=== PATIENT | female | born 1980 | race Caucasian/White ===

== ENCOUNTER 2021-09-02 09:41 | Outpatient (CLI) | payer OTHER, SELFPAY ==
--- NOTE | ~2021-09-02 | NM_ITS ---
EXAMINATION: NM hepatobiliary wo pharm DATE: 09/02/2021 12:17 INDICATION: Abdominal pain. COMPARISON: None. TECHNIQUE: 4 mCi Tc-99m mebrofenin (Choletec) was administered intravenously. Scintigraphic images o f the abdomen were obtained for one hour. Then, the patient drank 8 oz Ensure, and imaging was contin ued for 60 minutes. FINDINGS: There is normal clearance of radiotracer from the blood pool. There is homogeneous tracer u ptake by the liver. Activity progresses to the bowel and gallbladder. Gallbladder ejection fraction (GBEF) was 50%. Note that with this technique, normal GBEF >= 33%. IMPRESSION: 1. Normal hepatobiliary scintigraphy. Reviewed, dictated and finalized at location A.
== END 2021-09-02 09:42 | disposition home or self-care (01) ==
LOC: ANHIMG 09:45
PROVIDERS: PCP Internal Medicine; Visit Provider Internal Medicine
DX: R10.11 Right upper quadrant pain (principal)
CPT/HCPCS: 78226; A9537

== ENCOUNTER 2021-12-31 06:32 | Outpatient (CLI) | payer OTHER, SELFPAY ==
--- NOTE | ~2021-12-31 | MR_ITS ---
EXAMINATION: MR lumbar spine wo con DATE: 12/31/2021 07:31 INDICATION: Chronic low back pain. TECHNIQUE: Magnetic resonance imaging (MRI) of the lumbar spine was performed without intravenous con trast. Sequences included sagittal T2-weighted FSE, sagittal T2-weighted FS FSE, sagittal T1-weighted FSE, and axial T2-weighted FSE. COMPARISON: None FINDINGS: Bone alignment is normal. Vertebral body heights are normal. Intervertebral disc heights ar e normal. The distal spinal cord signal intensity is normal. The conus medullaris is at L1. The follo wing disc levels are specifically discussed: L1-L2: The disc does not extend beyond the endplate margin. There is no facet joint osteoarthritis. T here is no neural foraminal stenosis. There is no central canal stenosis. L2-L3: The disc does not extend beyond the endplate margin. There is mild left facet joint osteoarthr itis. There is no neural foraminal stenosis. There is no central canal stenosis. L3-L4: The disc does not extend beyond the endplate margin. There is no facet joint osteoarthritis. T here is no neural foraminal stenosis. There is no central canal stenosis. L4-L5: The disc does not extend beyond the endplate margin. There is no facet joint osteoarthritis. T here is no neural foraminal stenosis. There is no central canal stenosis. L5-S1: The disc is bulging with superimposed left central extrusion. There is mild bilateral facet raymundo int osteoarthritis. There is no neural foraminal stenosis. There is mild central canal stenosis. IMPRESSION: 1. Mild lumbar spondylosis. Reviewed, dictated and finalized at location A. IMPRESSION: 1. Mild lumbar spondylosis.
== END 2021-12-31 06:33 | disposition home or self-care (01) ==
PROVIDERS: PCP Internal Medicine; Visit Provider Internal Medicine
DX: M54.50 Low back pain, unspecified (principal); M47.816 Spondylosis without myelopathy or radiculopathy, lumbar region
CPT/HCPCS: 72148

== ENCOUNTER 2022-02-18 01:05 | Day surgery (SDC) | payer OTHER, SELFPAY ==
[2022-02-03 15:07] VITALS: BMI 56.7
--- NOTE | 2022-02-03 15:22 | PC.NURSE ---
Report to the Outpatient Waiting Room, entrance under the green pavilion located off [facility], at time 0900 on date 02/18/22. Planned Procedure Time: 1100. Time changes happen often and if your time is changed the preop area will call you the afternoon before. - You and your visitor will be asked to self-screen and do not enter if you have any COVID symptoms. - Only one visitor is requested with a max of two and NO children visitors are allowed at this time. - The patient visitor may be requested to leave or wait in car when not with patient due to distancing restrictions. - A mask is optional within the hospital. Patients may have clear liquids (water, carbonated beverages, clear teas, apple juice) until 3 hours prior to surgery with a maximum of 20 ounces. 0800 - No food from midnight until time of surgery - Infants may have breast milk until 4 hours before surgery, infant formula 6 hours prior to surgery. - Children will be allowed to drink immediately following surgery. If applicable, please bring a bottle or sippy cup to assist with drinking. Juice, water, soda, and popsicles are readily available. For infants on formula, please bring formula the day of surgery. Pacifiers are allowed. Take the following medications with a SIP of water the morning of surgery: n/a (patient takes all medications at night) Medications to discontinue per physician n/a Date to take last dose n/a Please no make-up, nail lao, hairspray, perfume, deodorant, or body powder the day of surgery. No jewelry (including any body piercings) or valuables the day of surgery, leave them at home. Please take a shower or bath the night before, or the morning of, surgery with an antibacterial soap. Wear comfortable, loose fitting clothing. Children are encouraged to wear pajamas. - Jewelry must be removed prior to entering the operating room. Rings and piercings that are not removed may be cut off. - The hospital will not accept responsibility for valuables. - Please leave all valuables, including medications, at home the day of surgery. If you are going home after surgery, a licensed starting gate driver must drive you home. - NO public transportation without another adult if you receive anesthesia. - We recommend that an adult stay with you for 24 hours following discharge. - We also recommend that you do not drive, make important decision, drink alcoholic beverages, or take any drugs that were not prescribed by your health care provider for at least 24 hours after your discharge time. For Pediatric surgeries, we recommend two adults accompany the child home. Follow any additional instructions given to you from your surgeon. If you or anyone in your household have experienced Covid symptoms in the past week, please notify your surgeon or the nurse liaison at the phone number below for possible testing. Telephone instructions given to Mandi Hamilton and asked if any additional questions and then verbalized understanding. Patient advised to call surgeon office or pre surgery nurse liaison [phone] if any additional questions.
[2022-02-18] VITALS (8 sets, daily range): BP systolic 108–155; BP diastolic 52–94; PULSE 62–87; RESP 16–26; TEMP 36–36.9; O2SAT 94–100
--- NOTE | 2022-02-18 07:47 | WPDHPUPDATE1 ---
History and Physical Update Update Date/Time: proceed with hscope/D&C/polypectomy. History and Physical has been reviewed, including an updated exam of the patient. There are NO changes in the patient's condition. Risks, benefits, and alternatives have been discussed and questions answered. Patient agrees to proceed with procedure.
[2022-02-18] MEDS: ACETAMINOPHEN 500 MG TABLET 1000 MG PO (08:20)
[2022-02-18] MEDS: LACTATED RINGERS 1,000 ML 30 ML IV CONT (08:30)
--- NOTE | 2022-02-18 09:54 | WPDANESEPPF ---
Anes - Initial Pre Proc Eval Procedure: Operation Date: 02/18/22 10:00 Proposed Procedures p Hysteroscopy Dilation and Curettage with Polypectomy - Tomasz Denney MD Date/Time: 02/18/22 09:54 Surgeon: Tomasz Denney MD Pre Op Diagnosis: cervical polyp, Menometrorrhagia Patient Data Age: 41 Gender: F Height: 1.6 m Weight: 151.1 kg Last Vital Signs Temp 36.0 C L 02/18/22 08:30 Pulse 87 02/18/22 08:30 Resp 16 02/18/22 08:30 BP 146/86 H 02/18/22 08:30 Pulse Ox 96 02/18/22 08:30 O2 Del Method Room Air 02/18/22 08:30 Allergies Allergy/AdvReac Type Severity Reaction Status Date / Time codeine Allergy Severe Swelling Verified 02/18/22 08:52 Home Medications Medication Instructions Recorded Confirmed Type oxybutynin chloride 10 mg 10 mg PO DAILY 05/27/21 02/18/22 History tablet,extended release 24 hr cyclobenzaprine 5 mg tablet 5 mg PO TID PRN Spasms 01/26/22 02/18/22 History norethindrone acetate 5 mg tablet 10 mg PO DAILY #30 tabs 01/26/22 02/18/22 Rx ranitidine HCl 150 mg capsule 150 mg PO PRN PRN Acid Reflux 02/03/22 02/18/22 History Patient hx anesthesia problems: none Family hx anesthesia problems: none Results Review: All pre-operative results and documents have been reviewed as part of the pre-operative evaluation. [facility] Past Medical History Medical History Arthritis Breast abscess 2019 lt breast which turned septic Bulging disc Hernia (03/25/21) umbilical hernia with mesh Surgical History Surgical History History of appendectomy 2020 History of History of tubal ligation Family History Family History Grandparent Hypertension Social History Social History Smoking packs per day: 1 Smoking cigarettes per day: 20.0 Years smoked: 30 Smoking pack-years: 30.00 Smoking status: Current every day smoker Tobacco type: cigarettes Alcohol intake: never Substance use: current Substance use type: marijuana Other substance usage details: current every day user of marijuana Living arrangements: with family Additional living arrangements comments: same sex partner 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 Gender identity (if verbalized by the patient): Female Sexual Orientation (if Verbalized by the Patient): Bisexual Anes - Eval Final PreProcedure Day of Procedure 02/18/22 09:54 Patient weight: super morbidly obese Heart: regular rate and rhythm Lungs: decreased breath sounds Airway: Mallampati scale class II Neurological: alert and oriented Last oral intake: >/= 8 hours ASA classification: III Emergent: no Anesthetic plan: proceed Anesthesia type and monitoring: general GIVS and standard monitoring Results Review: All pre-operative results and documents have been reviewed as part of the pre-operative evaluation. Informed Consent: The patient's anesthetic plan and its attendant risks and benefits were discussed with the patient/family/POA. Questions were solicited and answers provided to the satisfaction of the patient/family/POA.
--- NOTE | 2022-02-18 10:25 | W.PM.PROC2 ---
Procedure Note - Detailed Date of Procedure 02/18/22 Pre-op Diagnosis cervical polyp, Menometrorrhagia Post-op Diagnosis Same Procedure Performed 1. Hysteroscopy 2. Uterine curettings 3. Polypectomy Surgeon Tomasz Denney MD Anesthesia MAC Findings 1. Hyperplastic/hyper vascular endometrial cavity 2. Endocervical polyp Description of Procedure Patient was prepped and draped in usual manner for this procedure. Hysteroscope was placed endometrial cavity with findings as noted above. Hypervascularity and thickened tissue were noted and curettings were obtained. Endocervical polyp was then grasped with polyp forceps and removed without difficulty periods hysteroscope was then placed at the end of the procedure no evidence any other abnormalities and the polyp had been removed. At this point the procedure was considered terminated patient was sent to recovery room in stable condition. Estimated Blood Loss 20 Drains No Packing No Pathology Yes Complications No immediate complications Condition Stable Disposition PACU [facility] Billing Surgery - Charge Forward: Surgery Billing
[2022-02-18] MEDS: fentaNYL CITRATE INJ (*CRX) 100 MCG/2 ML VIAL 25 MCG IV PUSH ×2 (10:57→11:05)
== END 2022-02-18 12:04 | disposition home or self-care (01) ==
PROVIDERS: PCP Internal Medicine; Visit Provider Obstetrics & Gynecology
PROC: 0U5B8ZZ Destruction of Endometrium, Via Natural or Artificial Opening Endoscopic (ICD-10-PCS; CPT 58563; principal; 2022-02-18 10:00)
DX: N92.1 Excessive and frequent menstruation with irregular cycle (principal); N84.0 Polyp of corpus uteri; F17.210 Nicotine dependence, cigarettes, uncomplicated; F12.90 Cannabis use, unspecified, uncomplicated; E66.01 Morbid (severe) obesity due to excess calories; Z68.43 Body mass index [BMI] 50.0-59.9, adult
CPT/HCPCS: 58558; 88305; A9270; J2250; J2704; J3010; J7030; J7120

== ENCOUNTER 2024-06-13 08:26 | Emergency (ER) | payer OTHER, SELFPAY ==
--- NOTE | ~2024-06-13 | US_ITS ---
US breast LT limited 06/13/2024 09:17 Indication: Concern for left breast abscess Procedure: High-resolution Limited ultrasound of the left breast Comparison: Ultrasound dated 03/13/2018 Findings: In the subareolar location of the left breast at 6:00 there is a hypoechoic mass with compl ex internal echotexture measuring 2 x 2 x 1.0 cm. There is marginal vascularity. Impression: 1: Complex hypoechoic subareolar left breast mass measuring 2 cm. Considerations include phlegmonous change and neoplasm. Recommend correlation with diagnostic bilateral mammogram. BI-RADS CATEGORY 0 - INCOMPLETE STUDY, NEED ADDITIONAL IMAGING EVALUATION. Reviewed, dictated and finalized at location A. Impression: 1: Complex hypoechoic subareolar left breast mass measuring 2 cm. Consideration s include phlegmonous change and neoplasm. Recommend correlation with diagnosti c bilateral mammogram. BI-RADS CATEGORY 0 - INCOMPLETE STUDY, NEED ADDITIONAL IMAGING EVALUATION.
[2024-06-13 08:30] VITALS: BP 131/88; PULSE 86; RESP 18; TEMP 36.8; O2SAT 97
--- OUTSIDE RECORDS SUMMARY | 2024-06-13 08:40 | XMS_ITS | CONTINUITY OF CARE DOCUMENT ---
Author Name teagan candelaria Address Unknown Organization [facility] Address [address] [place] [address] Phone [phone] Care Team Providers Care Scalehouse Attendant Name Role Phone teagan candelaria Unavailable Unavailable INSURANCE PROVIDERS Payer name Policy type / Coverage type Laura red libertarian [employer] Medicaid 1 [id number]
--- OUTSIDE RECORDS SUMMARY | 2024-06-13 08:40 | XMS_ITS | Data Portability ---
Author Organization [facility] KATIUSKAErick Address [address] [place] [address] Care Team Providers Care Forklift Technician Name Role Phone LESLEY SOLIS Motorcoach Driver Assessment Encounter Date Assessment Date Assessment LastModified by Organization Details LastModified Time 08/05/2020 08/05/2020 MOUSTAPHA [email or web address] Not available 08/05/2020 18:45:03 08/20/2020 08/20/2020 AMANDA Stahl [email or web address] Not available 08/19/2020 20:01:57 Plan of Treatment Reminders Order Date Submit Date Provider Last Modified By Organization Details Last Modified Time Details Appointments None recorded. Lab urinalysi s, dipstick 2021 022 [email or web address] 1 In-Office Order, Internal Use Only DO Not Attach Compendium DO Not Attach Compendium, Do Not Delete/merge, [id number] 2 09:59:27 culture, urine 2021 022 BISI [facility] (Centralized Electronic Ordering - All Locations), Patient Can Go To The Location Of Their Choice, [id number] 03:07:47 urinalysi s, dipstick 2020 021 [email or web address] In-Office Order, Internal Use Only DO Not Attach Compendium DO Not Attach Compendium, Do Not Delete/merge, [id number] 10:23:08 bacterial vaginosis panel, vaginal 2020 021 BISI [facility] (Centralized Electronic Ordering - All Locations), Patient Can Go To The Location Of Their Choice, [id number] 1 07:11:09 culture, vaginal/r ectal, streptoco ccus group B 2020 021 [facility] (Centralized Electronic Ordering - All Locations), Patient Can Go To The Location Of Their Choice, [address] 1 07:11:10 urinalysi s, dipstick 2020 021 [email or web address] 1 In-Office Order, Internal Use Only DO Not Attach Compendium DO Not Attach Compendium, Do Not Delete/merge, [id number] 1 17:07:34 culture, urine 2020 021 [facility] (Centralized Electronic Ordering - All Locations), Patient Can Go To The Location Of Their Choice, 1 14:11:24 bacterial vaginosis panel, vaginal 2020 021 [facility] (Centralized Electronic Ordering - All Locations), Patient Can Go To The Location Of Their Choice, 1 14:11:23 bacterial vaginosis panel, vaginal 2019 020 [facility] (Centralized Electronic Ordering - All Locations), Patient Can Go To The Location Of Their Choice, [id number] 0 07:09:39 culture, vaginal/r ectal, streptoco ccus group B 2019 020 [facility] (Centralized Electronic Ordering - All Locations), Patient Can Go To The Location Of Their Choice, [id number] 0 07:09:39 urinalysi s, dipstick 2019 020 [email or web address] In-Office Order, Internal Use Only DO Not Attach Compendium DO Not Attach Compendium, Do Not Delete/merge, [id number] 0 14:18:37 Referral urologist referral 2021 022 BISI Wahl MD, [address], [place], [address], 14:32:39 urogyneco logist referral 2021 [email or web address] [facility] , [address], [place], [address], 10:10:28 Procedures None recorded. Surgeries None recorded. Imaging None recorded. Medication Orders norethind kamari acetate 5 mg tablet 2021 [facility][id number], [address], [place], [id number], 10:00:53 Imvechristopher Abreuan ce Pack 4 mcg vaginal insert 2020 [facility], [address] [place] [address], [address], 09:20:20 Flora s Butt Paste 16 % topical ointment 2020 [facility] #01894, [address], [place], [id number], 09:20:17 Bactrim DS 800 mg-160 mg tablet 2019 [facility] #81938, [address], [place], [id number], 16:43:12 nystatin 100,000 unit/gram topical ointment 2019 [facility] #93230, [address], [place], [id number], 16:42:52 norethind kamari acetate 5 mg tablet 2019 [facility] #[id number], [place], [id number], 0 12:43:28 nystatin 100,000 unit/gram topical ointment 2019 020 [facility], [address] [place], [address], 16:42:52 metronida zole 500 mg tablet 2019 020 [facility], [address] [place], [address], 1 16:42:17 Patient TargetsNo targets recorded. Patient Instructions Encounter Date Encounter Id Patient Instructions Last Modified By Organization Details Last Modified Time 05/07/2019 [id number] candidiasis: care instructions [email or web address] Not available 05/07/2019 13:42:24 bacterial vaginosis: care instructions mwasserman Not available 05/07/2019 13:41:26 When You Want to Lose Weight: Care Instructions [email or web address] Not available 05/07/2019 13:41:26 10/23/2019 [id number] heavy menstrual periods: care instructions mwasserman Not available 10/23/2019 12:43:21 08/20/2020 [id number] atrophic vaginitis: care instructions mwasserman Not available 08/20/2020 10:33:27 04/07/2021 [id number] A healthy lifestyle: care instructions [email or web address] Not available 04/07/2021 10:01:31 Reason for Referral Urogynecologist Referral for Cystocele possible Grade 1 cystocele, pelvic floor physical therapy Referring Physician: Lesley Solis, Aerotriangulation Specialist, Encounter Date: 04/07/2021 Urologist Referral for Recur rent urinary tract infection chronic irritative voiding symptoms, urinary hesitancy x 2 months Referring Physician: [facility], Encounter Date: 04/07/2021 Results Created Date Observation Date Name Description Value Unit Range Abnormal Flag Note LastModifiedBy Organization Detail LastModifiedTime 08/21/19 21 08/20/2020 urina lysis , dipst ick Leukocytes Negati ve Not Available In-Office Order Internal Use Only DO Not Attach Compendium DO Not Attach Compendium, Do Not Delete/merge, [id number] 08/20/2020 10:02:08 08/21/19 21 08/20/2020 urina lysis , dipst ick Nitrite negati ve Not Available In-Office Order Internal Use Only DO Not Attach Compendium DO Not Attach Compendium, Do Not Delete/merge, 08/20/2020 10:02:08 08/21/19 21 08/20/2020 urina lysis , dipst ick Urobilinogen 1 Not Available In-Of fice Order Internal Use Only DO Not Attach Compendium DO Not Attach Compendium, Do Not Delete/merge, 08/20/2020 10:02:08/21/19 21 08/20/2020 urina lysis , dipst ick Protein Negati ve Not Available In-Office Order Internal Use Only DO Not Attach Compendium DO Not Attach Compendium, Do Not Delete/merge, 08/20/2020 10:02:08 08/21/19 21 08/20/2020 urina lysis , dipst ick pH 6.5 Not Available In-Office Order Internal Use Only DO Not Attach Compendium DO Not Attach Compendium, Do Not Delete/merge, 08/20/2020 10:02:08 08/21/19 21 08/20/2020 urina lysis , dipst ick Blood Negati ve Not Available In-Office Order Internal Use Only DO Not Attach Compendium DO Not Attach Compendium, Do Not Delete/merge, 08/20/2020 10:02:08 08/21/19 21 08/20/2020 urina lysis , dipst ick Ketone Negati ve Not Available In-Office Order Internal Use Only DO Not Attach Compendium DO Not Attach Compendium, Do Not Delete/merge, 08/20/2020 10:02:08 08/21/19 21 08/20/2020 urina lysis , dipst ick Bilirubin Small Not Available In-Offic e Order Internal Use Only DO Not Attach Compendium DO Not Attach Compendium, Do Not Delete/merge, [id number] 08/20/2020 10:02:08 08/21/19 21 08/20/2020 urina lysis , dipst ick Glucose Negati ve Not Available In-Office Order Internal Use Only DO Not Attach Compendium DO Not Attach Compendium, Do Not Delete/merge, 08/20/2020 10:02:08 08/06/19 21 08/05/2020 urina lysis , dipst ick Leukocytes Negati ve Not Available In-Office Order Internal Use Only DO Not Attach Compendium DO Not Attach Compendium, Do Not Delete/merge, 08/05/2020 16:46:23 08/06/19 21 08/05/2020 urina lysis , dipst ick Nitrite negati ve Not Available In-Office Order Internal Use Only DO Not Attach Compendium DO Not Attach Compendium, Do Not Delete/merge, 08/05/2020 16:46:23 08/06/19 21 08/05/2020 urina lysis , dipst ick Urobilinogen 1 Not Available In-Of fice Order Internal Use Only DO Not Attach Compendium DO Not Attach Compendium, Do Not Delete/merge, 08/05/2020 16:46:23 08/06/19 21 08/05/2020 urina lysis , dipst ick Protein Negati ve Not Available In-Office Order Internal Use Only DO Not Attach Compendium DO Not Attach Compendium, Do Not Delete/merge, 08/05/2020 16:46:23 08/06/19 21 08/05/2020 urina lysis , dipst ick pH 5.5 Not Available In-Office Order Internal Use Only DO Not Attach Compendium DO Not Attach Compendium, Do Not Delete/merge, 08/05/2020 16:46:23 08/06/19 21 08/05/2020 urina lysis , dipst ick Blood Negati ve Not Available In-Office Order Internal Use Only DO Not Attach Compendium DO Not Attach Compendium, Do Not Delete/merge, 08/05/2020 16:46:23 08/06/19 21 08/05/2020 urina lysis , dipst ick Specific [place] 1.030 Not Available In-Off ice Order Internal Use Only DO Not Attach Compendium DO Not Attach Compendium, Do Not Delete/merge, [id number] 08/05/2020 16:46:23 08/06/19 21 08/05/2020 urina lysis , dipst ick Ketone Trace Not Available In-Office Order Internal Use Only DO Not Attach Compendium DO Not Attach Compendium, Do Not Delete/merge, [id number] 08/05/2020 16:46:23 08/06/19 21 08/05/2020 urina lysis , dipst ick Bilirubin Small Not Available In-Offic e Order Internal Use Only DO Not Attach Compendium DO Not Attach Compendium, Do Not Delete/merge, [id number] 08/05/2020 16:46:23 08/06/19 21 08/05/2020 urina lysis , dipst ick Glucose Negati ve Not Available In-Office Order Internal Use Only DO Not Attach Compendium DO Not Attach Compendium, Do Not Delete/merge, 08/05/2020 16:46:23 05/07/19 20 05/09/2019 bacte rial vagin osis panel , vagin al hsv 1 KATHE NEGATI VE negati ve Not Available [facility] ([facility]) [address] [place], [address], 05/11/2019 07:09:39 05/07/19 20 05/09/2019 bacte rial vagin osis panel , vagin al hsv 2 KATHE NEGATI VE negati ve Not Available [facility] ([facility]) [address] [place], [address], 05/11/2019 07:09:39 05/07/19 20 05/10/2019 bacte rial vagin osis panel , vagin al trich vag by KATHE NEGATI VE negati ve Not Available [facility] ([facility]) [address] [place], [address], 05/11/2019 07:09:39 05/07/19 20 05/10/2019 bacte rial vagin osis panel , vagin al chlamydia trachomatis, KATHE NEGATI VE negati ve Not Available [facility] ([facility]) [address] [facility], [place], [address], 05/11/2019 07:09:39 05/07/1905/10/2019 bacte rial vagin osis panel , vagin al neisseria gonorrhoeae, KATHE NEGATI VE negati ve Not Available [facility] ([facility]) [address] [place], [address], 05/11/2019 07:09:39 05/07/19 20 05/11/2019 bacte rial vagin osis panel , vagin al atopobium vaginae LOW - 0 score Not Available [facility] ([facility]) [address] [place], [address], 05/11/2019 07:09:39 05/07/19 20 05/11/2019 bacte rial vagin osis panel , vagin al bvab 2 LOW - 0 score Not Available [facility] ([facility]) [address] [place], [address], 05/11/2019 07:09:39 05/07/1905/11/2019 bacte rial vagin osis panel , vagin al megasphaera 1 LOW - 0 score Calcu late total score by antonio culp the 3 indiv idual bacte rial vagin osis (BV) marke r score s toget her. Total score is inter prete d as follo ws: Total score 0-1: Indic ates the absen ce of BV. Total score 2: Indet ermin ate for BV. Addit ional clini ena data shoul d be evalu ated to estab elizabeth a diagn osis. Total score 3-6: Indic ates the prese nce of BV. This test was devel oped and its perfo rmanc e pratibha cteri stics deter mined by [facility]. It has not been clear ed or appro namita by the Food and Drug Admin istra tion. The FDA has deter mined that such clear ance or appro gagan is not neces daljit. Not Available [facility] ([facility]) [address] [facility], [place], [address], 05/11/2019 07:09:39 05/07/19 20 05/11/2019 bacte rial vagin osis panel , vagin al kelvin albicans, KATHE NEGATI VE negati ve Not Available [facility] ([facility]) [address] [facility], [place], [address], 05/11/2019 07:09:39 05/07/19 20 05/11/2019 bacte rial vagin osis panel , vagin al kelvin glabrata, KATHE NEGATI VE negati ve Not Available [facility] ([facility]) [address] [facility], [place], [address], 05/11/2019 07:09:39 05/07/19 20 05/09/2019 cultu re, vagin al/re ctal, strep tococ cus group B strep gp B KATHE NEGATI VE negati ve Cente rs for Disea se Contr ol and Preve ntion (CDC) and Ameri can Congr ess of Obste trici ans and Gynec ologi sts (ACOG ) guide lines for preve ntion of perin atal group B strep tococ ena (GBS) disea se speci fy co-co llect ion of a vagin al and recta l swab speci men to maxim ize sensi tivit y of GBS detec tion. Per the CDC and ACOG, swabb ing both the lower vagin a and rectu m subst antia lly incre ases the yield of detec tion serafin red with sampl ing the vagin a alone . Penic illin G, ampic illin , or cefaz hilario are indic ated for intra partu m proph ylaxi s of perin atal GBS colon izati on. Refle x susce ptibi lity testi ng shoul d be perfo rmed prior to use of clind amyci n only on GBS isola mari from penic illin -dom rgic women who are consi dered a high risk for anaph ylaxi s. Treat ment with vanco mycin witho ut addit ional testi ng is kyle tran if resis tance to clind eveline n is noted . Not Available [facility] ([facility]) [address] [facility], [place], [address], 05/11/2019 07:09:39 05/07/19 20 05/07/2019 urina lysis , dipst ick Leukocytes Negati ve Not Available In-Office Order Internal Use Only DO Not Attach Compendium DO Not Attach Compendium, Do Not Delete/merge, 05/07/2019 12:47:08 05/07/19 20 05/07/2019 urina lysis , dipst ick Nitrite negati ve Not Available In-Office Order Internal Use Only DO Not Attach Compendium DO Not Attach Compendium, Do Not Delete/merge, 05/07/2019 12:47:08 05/07/19 20 05/07/2019 urina lysis , dipst ick Urobilinogen 1 Not Available In-Of fice Order Internal Use Only DO Not Attach Compendium DO Not Attach Compendium, Do Not Delete/merge, 05/07/2019 12:47:08 05/07/19 20 05/07/2019 urina lysis , dipst ick Protein Negati ve Not Available In-Office Order Internal Use Only DO Not Attach Compendium DO Not Attach Compendium, Do Not Delete/merge, 05/07/2019 12:47:08 05/07/19 20 05/07/2019 urina lysis , dipst ick pH 6.0 Not Available In-Office Order Internal Use Only DO Not Attach Compendium DO Not Attach Compendium, Do Not Delete/merge, 05/07/2019 12:47:08 05/07/19 20 05/07/2019 urina lysis , dipst ick Blood Non-He molyze d: Trace Not Available In-Office Order Internal Use Only DO Not Attach Compendium DO Not Attach Compendium, Do Not Delete/merge, 05/07/2019 12:47:08 05/07/19 20 05/07/2019 urina lysis , dipst ick Specific [place] 1.030 Not Available In-Off ice Order Internal Use Only DO Not Attach Compendium DO Not Attach Compendium, Do Not Delete/merge, [id number] 05/07/2019 12:47:08 05/07/19 20 05/07/2019 urina lysis , dipst ick Ketone Negati ve Not Available In-Office Order Internal Use Only DO Not Attach Compendium DO Not Attach Compendium, Do Not Delete/merge, [id number] 05/07/2019 12:47:08 05/07/19 20 05/07/2019 urina lysis , dipst ick Bilirubin Negati ve Not Available In-Office Order Internal Use Only DO Not Attach Compendium DO Not Attach Compendium, Do Not Delete/merge, [id number] 05/07/2019 12:47:08 05/07/19 20 05/07/2019 urina lysis , dipst ick Glucose Negati ve Not Available In-Office Order Internal Use Only DO Not Attach Compendium DO Not Attach Compendium, Do Not Delete/merge, [id number] 05/07/2019 12:47:08 08/06/19 21 08/07/2020 bacte rial vagin osis panel , vagin al trich vag by KATHE NEGATI VE negati ve Not Available [facility] ([facility]) [address] [place], [address], 08/08/2020 14:11:23 08/06/19 21 08/07/2020 bacte rial vagin osis panel , vagin al chlamydia trachomatis, KATHE NEGATI VE negati ve Not Available [facility] ([facility]) [address] [place], [address], 08/08/2020 14:11:23 08/06/19 21 08/07/2020 bacte rial vagin osis panel , vagin al neisseria gonorrhoeae, KATHE NEGATI VE negati ve Not Available [facility] ([facility]) [address] [place], [address], 08/08/2020 14:11:23 08/06/19 21 08/08/2020 bacte rial vagin osis panel , vagin al atopobium vaginae MODERA TE - 1 score Not Available [facility] ([facility]) [address] [facility], [place], [address], 08/08/2020 14:11:23 08/06/19 21 08/08/2020 bacte rial vagin osis panel , vagin al bvab 2 LOW - 0 score Not Available [facility] ([facility]) [address] [place], [address], 08/08/2020 14:11:23 08/06/19 21 08/08/2020 bacte rial vagin osis panel , vagin al megasphaera 1 LOW - 0 score Calcu late total score by antonio culp the 3 indiv idual bacte rial vagin osis (BV) marke r score s toget her. Total score is inter prete d as follo ws: Total score 0-1: Indic ates the absen ce of BV. Total score 2: Indet ermin ate for BV. Addit ional clini ena data shoul d be evalu ated to estab elizabeth a diagn osis. Total score 3-6: Indic ates the prese nce of BV. This test was devel oped and its perfo rmanc e pratibha cteri stics deter mined by [facility]. It has not been clear ed or appro namita by the Food and Drug Admin istra tion. Not Available [facility] ([facility]) [address] [facility], [place], [address], 08/08/2020 14:11:23 08/06/19 21 08/08/2020 bacte rial vagin osis panel , vagin al kelvin albicans, KATHE NEGATI VE negati ve Not Available [facility] ([facility]) [address] [facility], [place], [address], 08/08/2020 14:11:23 08/06/19 21 08/08/2020 bacte rial vagin osis panel , vagin al kelvin glabrata, KATHE NEGATI VE negati ve Not Available [facility] ([facility]) [address] [place], [address], 08/08/2020 14:11:23 08/06/19 21 08/08/2020 bacte rial vagin osis panel , vagin al hsv 1 KATHE NEGATI VE negati ve Not Available [facility] ([facility]) [address] [place], [address], 08/08/2020 14:11:23 08/06/19 21 08/08/2020 bacte rial vagin osis panel , vagin al hsv 2 KATHE NEGATI VE negati ve Not Available [facility] ([facility]) [address] [place], [address], 08/08/2020 14:11:23 08/06/19 21 08/06/2020 cultu re, urine urine culture, routine FINAL REPORT Not Available [facility] ([facility]) [address] [place], [address], 08/08/2020 14:11:24 08/06/19 21 08/06/2020 cultu re, urine result 1 COMMEN T Mixed uroge nital heidy 50,00 0-100 ,000 colon y formi ng units per mL Not Available [facility] ([facility]) [address] [place], [address], 08/08/2020 14:11:24 08/21/19 21 08/23/2020 bacte rial vagin osis panel , vagin al trich vag by KATHE NEGATI VE negati ve Not Available [facility] ([facility]) [address] [place], [address], 08/28/2020 07:11:09 08/21/19 21 08/23/2020 bacte rial vagin osis panel , vagin al chlamydia trachomatis, KATHE NEGATI VE negati ve Not Available [facility] ([facility]) [address] [place], [address], 08/28/2020 07:11:09 08/21/19 21 08/23/2020 bacte rial vagin osis panel , vagin al neisseria gonorrhoeae, KATHE NEGATI VE negati ve Not Available [facility] ([facility]) [address] [facility], [place], [address], 08/28/2020 07:11:09 08/21/19 21 08/25/2020 bacte rial vagin osis panel , vagin al atopobium vaginae HIGH - 2 score abnormal Not Available [facility] ([facility]) [address] [place], [address], 08/28/2020 07:11:09 08/21/19 21 08/25/2020 bacte rial vagin osis panel , vagin al bvab 2 LOW - 0 score Not Available [facility] ([facility]) [address] [facility], [place], [address], 08/28/2020 07:11:09 08/21/19 21 08/25/2020 bacte rial vagin osis panel , vagin al megasphaera 1 HIGH - 2 score abnormal Calcu late total score by antonio g the 3 indiv idual bacte rial vagin osis (BV) marke r score s toget her. Total score is inter prete d as follo ws: Total score 0-1: Indic ates the absen ce of BV. Total score 2: Indet ermin ate for BV. Addit ional clini ena data shoul d be evalu ated to estab elizabeth a diagn osis. Total score 3-6: Indic ates the prese nce of BV. This test was devel oped and its perfo rmanc e pratibha cteri stics deter mined by [facility]. It has not been clear ed or appro namita by the Food and Drug Admin istra tion. Not Available [facility] ([facility]) [address] [place], [address], 08/28/2020 07:11:09 08/21/19 21 08/25/2020 bacte rial vagin osis panel , vagin al kelvin albicans, KATHE NEGATI VE negati ve Not Available [facility] ([facility]) [address] [place], [address], 08/28/2020 07:11:09 08/21/19 21 08/25/2020 bacte rial vagin osis panel , vagin al kelvin glabrata, KATHE NEGATI VE negati ve Not Available [facility] ([facility]) [address] [place], [address], 08/28/2020 07:11:09 08/21/19 21 08/28/2020 bacte rial vagin osis panel , vagin al hsv 1 KATHE NEGATI VE negati ve Not Available [facility] ([facility]) [address] [place], [address], 08/28/2020 07:11:09 08/21/19 21 08/28/2020 bacte rial vagin osis panel , vagin al hsv 2 KATHE NEGATI VE negati ve Not Available [facility] ([facility]) [address] [place], [address], 08/28/2020 07:11:09 08/21/19 21 08/22/2020 cultu re, vagin al/re ctal, strep tococ cus group B strep gp B KATHE NEGATI VE negati ve Cente rs for Disea se Contr ol and Preve ntion (CDC) and Ameri can Congr ess of Obste trici ans and Gynec ologi sts (ACOG ) guide lines for preve ntion of perin atal group B strep tococ ena (GBS) disea se speci fy co-co llect ion of a vagin al and recta l swab speci men to maxim ize sensi tivit y of GBS detec tion. Per the CDC and ACOG, swabb ing both the lower vagin a and rectu m subst antia lly incre ases the yield of detec tion serafin red with sampl ing the vagin a alone . Penic illin G, ampic illin , or cefaz hilario are indic ated for intra partu m proph ylaxi s of perin atal GBS colon izati on. Refle x susce ptibi lity testi ng shoul d be perfo rmed prior to use of clind amyci n only on GBS isola mari from penic illin -dom rgic women who are consi dered a high risk for anaph ylaxi s. Treat ment with vanco mycin witho ut addit ional testi ng is warra nted if resis tance to clind amyci n is noted . Not Available [facility] ([facility]) [address] [facility], [place], [address], 08/28/2020 07:11:10 02/14/20 21 02/14/2021 URINE CULTU RE, CARMENI NE urine culture, routine FINAL REPORT Not Available [facility] ([facility]) [address] [facility], [place], [address], 02/15/2021 03:06:09 02/14/20 21 02/14/2021 URINE CULTU RE, CARMENI NE result 1 COMMEN T Mixed uroge nital heidy Less than 10,00 0 colon ies/m L Not Available [facility] ([facility]) [address] [place], [address], 02/15/2021 03:06:09 02/14/20 21 02/13/2021 urina lysis , dipst ick Leukocytes Trace Not Available In-Offi ce Order Internal Use Only DO Not Attach Compendium DO Not Attach Compendium, Do Not Delete/merge, [id number] 02/13/2021 11:06:21 02/14/20 21 02/13/2021 urina lysis , dipst ick Nitrite negati ve Not Available In-Office Order Internal Use Only DO Not Attach Compendium DO Not Attach Compendium, Do Not Delete/merge, [id number] 02/13/2021 11:06:21 02/14/20 21 02/13/2021 urina lysis , dipst ick Urobilinogen .2 Not Available In-Of fice Order Internal Use Only DO Not Attach Compendium DO Not Attach Compendium, Do Not Delete/merge, [id number] 02/13/2021 11:06:21 02/14/20 21 02/13/2021 urina lysis , dipst ick Protein Negati ve Not Available In-Office Order Internal Use Only DO Not Attach Compendium DO Not Attach Compendium, Do Not Delete/merge, [id number] 02/13/2021 11:06:21 02/14/20 21 02/13/2021 urina lysis , dipst ick pH 5.5 Not Available In-Office Order Internal Use Only DO Not Attach Compendium DO Not Attach Compendium, Do Not Delete/merge, [id number] 02/13/2021 11:06:21 02/14/20 21 02/13/2021 urina lysis , dipst ick Blood Non-He molyze d: Trace Not Available In-Office Order Internal Use Only DO Not Attach Compendium DO Not Attach Compendium, Do Not Delete/merge, [id number] 02/13/2021 11:06:21 02/14/20 21 02/13/2021 urina lysis , dipst ick Specific [place] 1.030 Not Available In-Off ice Order Internal Use Only DO Not Attach Compendium DO Not Attach Compendium, Do Not Delete/merge, [id number] 02/13/2021 11:06:21 02/14/20 21 02/13/2021 urina lysis , dipst ick Ketone Negati ve Not Available In-Office Order Internal Use Only DO Not Attach Compendium DO Not Attach Compendium, Do Not Delete/merge, [id number] 02/13/2021 11:06:21 02/14/20 21 02/13/2021 urina lysis , dipst ick Bilirubin Small Not Available In-Offic e Order Internal Use Only DO Not Attach Compendium DO Not Attach Compendium, Do Not Delete/merge, [id number] 02/13/2021 11:06:21 02/14/20 21 02/13/2021 urina lysis , dipst ick Glucose Negati ve Not Available In-Office Order Internal Use Only DO Not Attach Compendium DO Not Attach Compendium, Do Not Delete/merge, [id number] 02/13/2021 11:06:21 02/14/20 21 02/13/2021 urina lysis , dipst ick Appearance Cloudy Not Available In-Offi ce Order Internal Use Only DO Not Attach Compendium DO Not Attach Compendium, Do Not Delete/merge, [id number] 02/13/2021 11:06:21 02/14/20 21 02/13/2021 urina lysis , dipst ick Color [place] Not Available In-Office Order Internal Use Only DO Not Attach Compendium DO Not Attach Compendium, Do Not Delete/merge, [id number] 02/13/2021 11:06:21 04/07/19 22 04/08/2021 URINE CULTU RE, ROUTI NE urine culture, routine Final report Not Available [facility] ([facility]) [address] [place], [address], 04/09/2021 03:07:47 04/07/19 22 04/08/2021 URINE CULTU RE, ROUTI NE result 1 Commen t Mixed uroge nital heidy 25,00 0-50, 000 colon y formi ng units per mL Not Available [facility] ([facility]) [address] [place], [address], 04/09/2021 03:07:47 04/07/19 22 04/07/2021 urina lysis , dipst ick Leukocytes Small Not Available In-Offi ce Order Internal Use Only DO Not Attach Compendium DO Not Attach Compendium, Do Not Delete/merge, [id number] 04/07/2021 09:32:49 04/07/19 22 04/07/2021 urina lysis , dipst ick Nitrite negati ve Not Available In-Office Order Internal Use Only DO Not Attach Compendium DO Not Attach Compendium, Do Not Delete/merge, [id number] 04/07/2021 09:32:49 04/07/19 22 04/07/2021 urina lysis , dipst ick Urobilinogen 1 Not Available In-Of fice Order Internal Use Only DO Not Attach Compendium DO Not Attach Compendium, Do Not Delete/merge, 04/07/2021 09:32:49 04/07/19 22 04/07/2021 urina lysis , dipst ick Protein Negati ve Not Available In-Office Order Internal Use Only DO Not Attach Compendium DO Not Attach Compendium, Do Not Delete/merge, 04/07/2021 09:32:49 04/07/19 22 04/07/2021 urina lysis , dipst ick pH 7.0 Not Available In-Office Order Internal Use Only DO Not Attach Compendium DO Not Attach Compendium, Do Not Delete/merge, 04/07/2021 09:32:49 04/07/19 22 04/07/2021 urina lysis , dipst ick Blood Negati ve Not Available In-Office Order Internal Use Only DO Not Attach Compendium DO Not Attach Compendium, Do Not Delete/merge, 04/07/2021 09:32:49 04/07/19 22 04/07/2021 urina lysis , dipst ick Specific [place] 1.025 Not Available In-Off ice Order Internal Use Only DO Not Attach Compendium DO Not Attach Compendium, Do Not Delete/merge, 04/07/2021 09:32:49 04/07/19 22 04/07/2021 urina lysis , dipst ick Ketone Negati ve Not Available In-Office Order Internal Use Only DO Not Attach Compendium DO Not Attach Compendium, Do Not Delete/merge, 04/07/2021 09:32:49 04/07/19 22 04/07/2021 urina lysis , dipst ick Bilirubin Negati ve Not Available In-Office Order Internal Use Only DO Not Attach Compendium DO Not Attach Compendium, Do Not Delete/merge, 04/07/2021 09:32:49 04/07/19 22 04/07/2021 urina lysis , dipst ick Glucose Negati ve Not Available In-Office Order Internal Use Only DO Not Attach Compendium DO Not Attach Compendium, Do Not Delete/merge, 04/07/2021 09:32:49 10/16/19 20 10/16/2019 CT, abdom en + pelvi s, w/o contr ast No observ ation record ed. [facility] (Imaging) [address] [place], [address], 10/23/2019 13:27:35 06/07/19 21 06/05/2020 CT, abdom en + pelvi s, w/o contr ast No observ ation record ed. [facility] [address] [place], [address], 08/20/2020 09:58:51 10/29/19 21 10/27/2020 XR, foot, 2 view No observ ation record ed. [address] ([employer]) [address] [place], [address], 04/07/2021 09:40:41 04/07/19 22 03/02/2021 CT, abdom en + pelvi s, w/o contr ast No observ ation record ed. [facility] [address] [place], [address], 04/07/2021 10:15:29 Result Notes None recorded. Problems Name Problem SNOMED Code Status Onset Date Resolution Date Notes Provider Name and Address Organization Details Recorded Time Female sterilization Active 2019 Not Available [facility] 2 02:49:41 Smoker 65927618 Active 2019 Not Available [facility] 2 02:49:41 Deliveries by [id number] Active 2019 Not Available [facility] 2 02:49:41 Bacterial vaginosis 957870175 Active 2020 Not Available [facility] 2 02:49:41 Problem Notes None recorded. Procedures Surgical History Date Name Laterality Status Provider Name and Address Organization Details Recorded Time 03/25/19 22 procedure on umbilicus completed Anushka Claire MA [facility] 04/07/2021 09:18:08 05/09/19 18 Date of Last Pap Smear completed Cheikh Banuelos MA [facility] 07/18/2018 14:40:29 03/14/18 86 Tonsillectomy completed Aundrea Leonard MA [facility] 05/09/2017 15:27:18 03/24/18 80 Caesarean Section completed Aundrea Leonard MA [facility] 05/09/2017 15:27:34 ligation of bilateral fallopian tubes completed Farshad Samayoa MA [facility] 05/29/2018 11:34:42 Appendectomy completed Anushka Claire MA [facility] 08/05/2020 16:45:52 Imaging Results Imaging Date Name Status LastModified by Organiz ation Details LastModified Time 10/16/2019 CT, abdomen + pelvis, w/o contrast completed [facility] ([facility]) [address] [place], [address], 10/23/2019 13:27:35 06/05/2020 CT, abdomen + pelvis, w/o contrast completed [facility] [address] [place], [address], 08/20/2020 09:58:51 10/27/2020 XR, foot, [address] ([facility] [employer] [facility]) [address] [place], [address], 04/07/2021 09:40:41 03/02/2021 CT, abdomen + pelvis, w/o contrast completed [facility] [address] [place], [address], 04/07/2021 10:15:29 Procedure Notes None recorded. Medical Equipment None Reported. Allergies Allergen ID Allergen Name Allergen Category Reaction Reaction Severity Criticality Documentation Date Start Date Code Code System Note Provider Name and Address Organization Details Recorded Time 35205 codeine medicatio n Not available Not available Not available 09/26/2014 0609 RxNorm Not Available Not Available Not Available Medications Name Sig Start Date Stop Date Status Note LastModified by Organization Details LastModified Time amoxicill in 500 mg caps 05/29 completed Not Available Not Available Not Available multivita min tablet Take 1 tablet every day by oral route. 05/29 completed Not Available Not Available Not Available nystatin 100,000 unit/gram topical ointment NIKIA EXT AA BID 08/05 completed Not Available Not Available Not Available fluconazo le 150 mg tablet Take 1 tablet by oral route. 10/22 completed Not Available Not Available Not Available metronida zole 0.75 % (37.5 mg/5 gram) vaginal gel INSERT 1 APPLICAT ORFUL VAGINALL Y EVERY DAY AT BEDTIME FOR 5 DAYS 01/29 completed Not Available Not Available Not Available metronida zole 500 mg tablet TAKE 1 TABLET BY MOUTH EVERY 8 HOURS 08/05 completed Not Available Not Available Not Available sulfameth oxazole 800 mg-trimet hoprim 160 mg tablet TK 1 T PO Q 12 H FOR 7 DAYS 08/05 completed Not Available Not Available Not Available oxycodone -acetamin ophen 5 mg-325 mg tablet TAKE 1 TABLET BY MOUTH EVERY 4 TO 6 HOURS NEEDED FOR PAIN 04/07 completed Not Available Not Available Not Available nystatin 100,000 unit/gram topical cream APPLY TO THE AFFECTED AREA(S) BY TOPICAL ROUTE 2 TIMES PER DAY 10/22 completed Not Available Not Available Not Available norethind kamari acetate 5 mg tablet TAKE 1 TABLET BY MOUTH EVERY DAY 2021 active Not Available Not Available Not Avai lable oxycodone -acetamin ophen 7.5 mg-325 mg tablet TAKE 1 TABLET BY MOUTH EVERY 4-6 HOURS NEEDED FOR PAIN 08/05 completed Not Available Not Available Not Available levofloxa jan 750 mg tablet TAKE 1 TABLET BY MOUTH EVERY 24 HOURS FOR 7 DAYS 08/05 completed Not Available Not Available Not Available naproxen 500 mg tablet TK 1 T PO BID WF 08/05 completed Not Available Not Available Not Available Oyster Shell Calcium-V itamin D3 500 mg-5 mcg (200 unit) tablet TAKE ONE TABLET TWICE DAILY 08/05 completed Not Available Not Available Not Available nitrofura ntoin monohydra te/macroc rystals 100 mg capsule TK ONE C PO Q 12 H 08/05 completed Not Available Not Available Not Available Flora s Butt Paste 16 % topical ointment Apply 1 applicat ion twice a day by topical route. 04/07 completed Not Available Not Available Not Available calcium 600 mg (as carbonate )-vitamin D3 20 mcg (800 unit) tablet Take 1 tablet twice a day by oral route. 10/22 completed Not Available Not Available Not Available Imvexxy Maintenan ce Pack 4 mcg vaginal insert Insert 1 vaginal insert twice a week by vaginal route. 04/07 completed Not Available Not Available Not Available Nextstell is 3 mg-14.2 mg (28) tablet Take 1 tablet every day by oral route. 01/29 completed Patient stated she didn't like the way the medicati on made her feel. Not Available Not Available Not Available Vitals Date Recorded Body height Systolic blood pressure Diastolic blood pressure Provider Name and Address Organization Details Last Updated DateTime 05/07/2019 161.29 cm 102 mm[Hg] 76 mm[Hg] Yodit Mauricio MA [facility] 05/07/2019 12:52:47 Date Recorded Body mass index (BMI) Body weight Provider Name and Address Organization Details Last Updated DateTime 05/07/2019 56 kg/m2 242058.15 g Rose Hernandez MA [facility] 05/07/2019 12:45:22 Date Recorded Body height Body mass index (BMI) Body weight Provider Name and Address Organization Details Last Updated DateTime 10/23/2019 161.29 cm 56.3 kg/m2 265994.34 g Rose Hernandez MA [facility] 10/23/2019 12:37:15 Date Recorded Body height Body mass index (BMI) Body weight Systolic blood pressure Diastolic blood pressure Provider Name and Address Organization Details Last Updated DateTime 08/05/2020 161.29 cm 55.8 kg/m2 769073.5 6 g 120 mm[Hg] 80 mm[Hg] Anushka Claire MA [facility] SI 16:48:59 Date Recorded Body height Body mass index (BMI) Body weight Systolic blood pressure Diastolic blood pressure Provider Name and Address Organization Details Last Updated DateTime 08/20/2020 161.29 cm 55.6 kg/m2 808154.9 7 g 118 mm[Hg] 74 mm[Hg] Margareth JULIANNE Posada [place] - [facility] 1 10:01:54 Date Recorded Body height Body mass index (BMI) Body weight Systolic blood pressure Diastolic blood pressure Provider Name and Address Organization Details Last Updated DateTime 04/07/2021 161.29 cm 56.1 kg/m2 962632.7 4 g 128 mm[Hg] 76 mm[Hg] Anushka Claire MA [facility] 2 09:20:13 Social History Question Answer Notes LastModified by Organizat ion Details LastModified Time Tobacco Smoking Status Current Every Day Smoker cigarettes Farshad Samayoa MA null, [place] - [facility] 09/26/2014 14:25:03 Do You Have An Advance Directive? No Information not available 05/09/2017 What Is Your Level Of Alcohol Consumption? None Information not available 08/05/2020 What Is Your Level Of Caffeine Consumption? Occasional Information not available 05/09/2017 How Much Tobacco Do You Chew? None Information not available 05/07/2019 Have You Been To An Area Known To Be High Risk For COVID-19? No Information not available 05/07/2019 Are You Currently Employed? Yes Information not available 05/09/2017 What Type Of Diet Are You Following? REGULAR Information not available 05/09/2017 Which Illicit Or Recreational Drugs Have You Used? Marijuanna Information not available 05/09/2017 Do You Or Have You Ever Used E-cigarettes Or Vape? Never Used Electronic Cigarettes Information not available 05/07/2019 Education 12 Information no t available 05/09/2017 What Is Your Occupation? [employer] Information not available 05/09/2017 Hard Of Hearing Or Deaf In One Or Both Ears? Yes Information not available 05/09/2017 Legally Blind In One Or Both Eyes? No Information not available 05/09/2017 Marital Status Domestic Partner Information not available 05/09/2017 What Was The Date Of Your Most Recent Tobacco Screening? 04/07/2021 Information not available 04/07/2021 How Many Children Do You Have? 1 Information not available 05/09/2017 Performs Monthly Self-breast Exam? Yes Information not available 05/09/2017 Do You Use Protection During Sex? No Information not available 05/09/2017 What Is Your Relationship Status? Domestic Partner Information not available 05/09/2017 Seat Belts Used Routinely Yes Information not available 05/09/2017 Are You Sexually Active? Yes Information not available 05/09/2017 Smoke Alarm In Home Yes Information not available 05/09/2017 Do You Have Smoke And Carbon Monoxide Detectors In Your Home? Yes Information not available 08/05/2020 At What Age Did You Start Smoking Tobacco? 12 Information not available 05/09/2017 Are You Passively Exposed To Smoke? Yes Information not available 08/05/2020 Do You Or Have You Ever Used Smokeless Tobacco? Never Used Smokeless Tobacco Information not available 05/07/2019 How Much Tobacco Do You Smoke? 1 PPD 1 1/2 Pcks A Day Information not available 04/07/2021 Do You Use Any Illicit Or Recreational Drugs? Yes Marijuana Information not available 08/05/2020 Do You Use Sunscreen Routinely? Yes Information not available 05/09/2017 Has Tobacco Cessation Counseling Been Provided? Yes Information not available 08/05/2020 On What Date Was Tobacco Cessation Counseling Provided? 04/07/2021 Information not available 04/07/2021 How Many Years Have You Smoked Tobacco? 20 [email or web address] Information not available 09/26/2014 Do You Or Have You Ever Used Any Other Forms Of Tobacco Or Nicotine? No Information not available 08/05/2020 Sex: Unknown Functional Status Question Answer Note LastModified by Organization D etails LastModified Time What is your exercise level? None Information not available 05/09/2017 Mental Status None recorded. Family History Relationship Description Onset Age of this Age Resolved Age Notes LastModified by Organization Details LastModified Time Maternal Grandmother Hypertensive disorder Not available 2017 15:23:45 Maternal Grandmother Hypercholest erolemia Not available 2017 15:23:55 Medical History Condition Response Other N High Blood Pressure N Breast Cancer N Thyroid Problems N Kidney or Bladder Problems N Lung Disease N Depression N Blood Clots N GI Problems N Acne N Breast Problem N Eating Disorder N Anemia N Anesthesia Complications N Headaches/Migraines N Ovarian Cancer N Diabetes N Anxiety Disorder N Muscle, Joint, or Bone Problems N Blood Transfusions N Seizures/Epilepsy N Polyps N Infertility N Acid Reflux (GERD) Y Cancer N Abuse/Domestic Violence N Asthma N Endometriosis N High Cholesterol N Hepatitis N Liver Disease N Heart Disease N Pre-Eclampsia N Osteoporosis N Gynecological History Statement/Question Response Abnormal Pap N Flow Light Date of LMP 11/23/2020 On BCP's at Conception? N STIs/STDs N HPV Vaccine N Duration of Flow (days) 5-7 Age at Menarche 11 Current Control Method Tubal Ligat ion Age at First Child 22 Sexually Active? Y Menses Monthly N Date of Last Pap Smear 05/09/2017 Sexual Problems? Y LMP Approximate Desired Control Method BCPs Obstetrics History GPAL:G 1 P 1 0 0 1 Type Value Multiple Births 0 Full Term 1 Induced 0 Spontaneous 0 Premature 0 Living 1 Ectopics 0 Total 1 Past Encounters Encounter ID Performer Location Encounter Start Date Encounter Closed Date Diagnosis/Indication Diagnosis SNOMED-CT Code Diagnosis ICD10 Code Diagnosis Note [id number] Amna (Adult Med) [address] [place] [address] [phone] 09/26/2014 13:59:45 09/26/2014 14:55:25 Adult health examination [id number] MD Amna Purdy (Adult Med) [address] [place] [address] [id number] 09/27/2014 12:20:47 09/27/2014 14:38:07 Tuberculosis screening 896737633 [id number] Aureliano Woo ([employer]) [address] [place] [address] [id number] 05/09/2017 14:39:29 05/09/2017 16:48:53 Gynecologic examination 17508928 Z01.419 Obesity 286087855 E66.9 Female sterilization 608 80648 Z30.2 Deliveries by 615890148 O82 Abnormal u terine bleeding 8202673790 9100 N93.9 Candidiasis of skin 4988 3006 B37.2 Family bridget nning surveillance 521391131 Z30.09 Exposure t o sexually transmissible disorder 094805720 Z20.2 [id number] MD Amna Purdy (Adult Med) [address] [place] [address] [id number] 0 05/29/2018 10:38:39 06/09/2018 15:59:43 [id number] Aureliano Woo ([employer]) [address] [place] [address] [id number] 07/19/2018 14:16:20 07/19/2018 17:13:15 Candidiasis of vagina 92266268 B37.3 Folliculitis 51237616 L7 3.9 [facility] nning surveillance 526409954 Z30.09 sterilizat ion Exposure t o sexually transmissible disorder 953924540 Z20.2 [id number] Aureliano Woo ([employer]) [address] [place] [address] [id number] 05/07/2019 12:10:51 05/08/2019 11:20:53 Exposure to sexually transmissible disorder 890291507 Z20.2 Female sterilization 608 89088 Z30.2 Morbid obesity 188611138 Z68.43 Smoker 41658786 F17.200 Deliveries by 846397718 O82 [facility] nning surveillance 426413244 Z30.09 sterilizat ion Bacterial vaginosis 4197 54594 N76.0 Candidiasis 13429282 B37 .9 [id number] Aureliano Woo ([employer]) [address] [place] [address] [id number] 10/23/2019 12:35:13 10/24/2019 07:32:41 Candidiasis 72435044 B37.9 Acute urin omari tract infection 657871152 N39.0 Menorrhagia 043194446 N9 2.0 [id number] SAUMYA PEREZ ([employer]) [address] [place] [address] [id number] 0 08/05/2020 16:17:28 08/09/2020 18:48:12 Dysuria 77061923 R30.9 UA unremarkab le, will send for culture given patients symptoms. Advised increased water intake (pt states she never drinks water). Acute vaginitis 05441589 N76.0 PE unremarkab le. Sample collected. Will treat pending results. Use mild, unscented soaps or plain water when washing, avoid any products with fragrance. Wear cotton underwear and loose fitting clothing. Wash only once per day, do not overscrub or douche. [id number] Aureliano Danielle Amna ([employer]) [address] [place] [address] [phone] 0 08/20/2020 09:40:23 08/25/2020 06:49:15 Smoker 62421877 F17.200 Female sterilization 608 57991 Z30.2 Vulvitis 63674931 N76.2 Atrophic vaginitis 00729 000 N95.2 Exposure t o sexually transmissible disorder 597970375 Z20.2 [id number] SAUMYA PEREZ ([employer]) [address] [place] [address] [id number] 04/07/2021 08:46:46 04/09/2021 07:41:37 Cystocele 423020661 N81.10 Possible Grade 1 cystocele, no increased bulging with bearing down. Discussed kegel/pelv ic floor exercises to help with symptoms and to avoid any heavy lifting/sq uatting. Talked with pt and she is aware weight loss could be beneficial . Referral to urogyn for further eval and management . Recurrent urinary tract infection 360354953 N39.0 Pt treated for recurrent UTIs and has chronic irritative voiding symptoms. UA unremarkab le today but will send for culture. Referred to urologist. Menorrhagia 211894111 N9 2.0 Pt says post tubal ligation she got very painful cramping and HMB so norethindr one was started which has alleviated her symptoms. Renewed today. Morbid obesity 105173334 E66.01 BMI 56.1. Discussed healthy diet (including increasing fruits, vegetables , legumes) and decreasing processed foods, prepared foods, excessivel y fatty/salt y/sugary foods. Advised 60 minutes of exercise, 5 days per week. Talked with pt about boredom eating, portion control, and setting consistent schedules for meals. 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 [facility] - OPEN ACCESS III (PPO) [id number] Mandi Dexheimer [id number] Mandi Dexheimer 08/05/2020 1 [facility] - 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 [facility] - OPEN ACCESS III (PPO) [id number] Mandi Dexheimer [id number] Mandi Dexheimer 08/20/2020 1 [employer] [facility] - 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 [facility] - OPEN ACCESS III (PPO) [id number] Mandi Dexheimer [id number] Mandi Dexheimer 04/07/2021 1 [facility] 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 [facility] - OPEN ACCESS III (PPO) [id number] Mandi Dexheimer [id number] Mandi Dexheimer Notes Date Note Type Note Provider Name and Address Organization Details Recorded Time 05/07/2019 text/html Annual GYNReport ed bypatient.History:no gynecologic complaints Menstrual cycle:Normal menses Urinary symptoms:No hematuria; No incontinence Vulva:No genital lesion Vagina:White Breast:No breast pain; No breast lump; No nipple discharge Sexual complaints:No sexual complaints; No pain during intercourse; Normal libido Menopausal Symptoms:No menopausal symptoms; Normal vaginal lubrication Psychological symptoms:No depression; No anxiety; No PMDD Preventive measures:Encourage self breast examination; Encourage regular exercise; Encourage no tobacco use; Encourage regular mammograms starting age 40; Followed with Q3 year pap smear and high risk HPV typing 39 yo F, , presents for [facility] 05/07/2019 18:24:56 10/23/2019 text/html Recurrent UTIRep orted bypatient.Associated Symptoms:no incontinence; no nocturia; no hematuria; no incomplete emptying; no flank pain; no back pain; no kidney stones;frequency;urgen cy;dysuria 39 yo F, , presents for dysuria frequency, seen in the ER given macrobid side effect nausea, patient stopped med Aureliano PearceLolis jose [facility] 10/23/2019 13:29:49 08/05/2020 text/html 40 yo who presents with clear, malodorous vaginal discharge, and itching x5 days, as well as right lower back pain that started today. She confirms occasional mild dysuria and reports dark urine. She denies recent changes in hygiene products. She reports frequent vaginal infections and taking bleach baths prophylactically every month. She reports good response to oral antibiotics, but that she also requires an antiemetic when taking them. She reports difficulty using topical preparations. SAUMYA PEREZ Attn: Accounting,[address] [place], [address], [facility] 08/13/2020 17:32:43 08/20/2020 text/html Recurrent UTIRep orted bypatient.Associated Symptoms:no frequency; no urgency; no incontinence; no nocturia; no dysuria; no hematuria; no incomplete emptying; no flank pain; no back pain; no kidney stones 40 yo who presents with clear, malodorous vaginal discharge and itching x2 weeks. She notes her skin around her vagina is sensitive and erythematous due to scratching and wiping. She denies recent changes in hygiene products. She reports frequent vaginal infections and taking bleach baths prophylactically every month. She reports difficulty using topical preparations. Aureliano PearceLolischris garcia [facility] 08/20/2020 16:17:56 04/07/2021 text/html Annual GYNReport ed bypatient.Urinary symptoms:No hematuria;Urge incontinence;Burning sensation during urination(Intermittent );Nocturia; Mixed incontinence Vulva:No genital lesion Vagina:Normal vaginal discharge Breast:No breast pain; No breast lump; No nipple discharge Current Contraception:Tubal ligation Sexual complaints:No sexual complaints; No pain during intercourse; Normal libido Menopausal Symptoms:No menopausal symptoms; Normal vaginal lubrication Mandi is a 41y/o female with a pmhx of recurrent UTI's, nephrolithiasis, ceserean section (2002), tubal ligation (2007), appendectomy (possibly sometime in 2020), and umbilical hernia repair (03/25/21) presents today for feelings of her bladder dropping x3-4 months. Pt says she has had this feeling before and thought it was surgically fixed when she had her tubal ligation surgery in 2007. She says she feels abdominal and vaginal pressure constantly and is unable to control urination. Pt says she experiences intermittent mild dysuria but she says she's had that going on for awhile and it's not that frequent. She reports over the last 3-4 months she has woken up in the middle of the night in a puddle of urine which did not wake her. During most nights now she wakes frequently having to urinate but says only small amounts will come out and its takes her 15-30 minutes sometimes. She denies feelings of vaginal or lower abdominal bulging. Pt says she started to experience severe uterine cramping and bleeding post tubal ligation and has taken norethindrone ever since which has helped and she is now amenorrheic. She denies hematuria, hematochezia, fever, abnormal bleeding, or vaginal irritation/pruritis. SAUMYA PEREZ Attn: Accounting,[address] [place], [address], [facility] 04/08/2021 10:19:39 OBGyn Episode Ob Episode Information Episode Created Date Number of Fetuses Patient Bloodtype Patient rh Status Prepregnancy Weight lbs Domestic Partner Domestic Partner Phone Father Name Sports Physiotherapist Status 05/09/19 18 1 CLOSED Fetus Data First Name Last Name Admitted to NICU Weight (g) Sex Living Outcome Pediatric Complications Fetus ID Race Codes Race Delivery Type [id number] Full Term [id number] Gera Calculation Initial Gera Date Initial Exam Date Initial Exam Provider Initial Ultrasound Date Last Menstrual Period Date Ultra Sound Weeks Gestation 0 Eighteen To Twenty Week Gera Update Ultra Sound Date Fundal Height At Umbil Quickening Date Ultra Sound Latest Weeks Gestation Final Gera Confirmed By Final Gera Confirmed Date Final Gera Date Ultra Sound Latest Days Gestation 0 0 Menstrual History Last Menstrual Date Menses Monthly On Bcp Conception Prior Menses Frequency Hcg Plus Date Menarche Onset Age Delivery Information Delivery Date Delivery Type Labor Anesthesia Weeks Gestation Incision Type Labor Labor Length Hrs Delivered By Post Complications Tubal Sterilization Discharge Date Comments 3 None Discharge Information Feeding Method Contraceptive Method Maternal HG B and HCT Levels
--- NOTE | 2024-06-13 08:47 | ED_ITS ---
HPI - General Adult General Chief complaint: Unspecified Stated complaint: knot on my boob Time Seen by Provider: 06/13/24 08:28 History of Present Illness HPI narrative: 44-year-old female history of a breast abscess present to the emergency department for evaluation for 3 weeks of swelling behind her left nipple. Patient states that she did have follow-up with her primary care physician on Tuesday was started on Bactrim but feels that it has significantly worsened. Related Data Allergies Allergy/AdvReac Type Severity Reaction Status Date / Time codeine Allergy Intermediate Swelling Verified 06/13/24 08:26 metronidazole Allergy Intermediate Swelling Verified 06/13/24 08:26 Review of Systems 2 Review of Systems: All systems reviewed & are unremarkable except as noted in HPI and below PMFSH Past Medical History Medical History (Updated 06/13/24 @ 11:15 by Nikos Mcginnis MD) Vaginal odor Screening mammogram, encounter for Nipple discharge Bulging disc Arthritis Hernia (03/25/21) umbilical hernia with mesh Breast abscess 2018 lt breast which turned septic Surgical History Surgical History History of hysteroscopy (08/19/22) Hscope D&C / endometrial Ablation History of hysteroscopy (02/18/22) Hscope D&C / polypectomy History of History of tubal ligation History of appendectomy 2020 Family History Family History Grandparent Hypertension Other Cerebrovascular accident maternal aunt Social History Social History Smoking packs per day: 2 Smoking cigarettes per day: 40.0 Years smoked: 30 Smoking pack-years: 60.00 Smoking status: Current every day smoker Tobacco type: cigarettes Second hand tobacco smoke exposure: Yes (spouse smokes also) Alcohol intake: current Alcohol use details: 1-2 a year Substance use: current Substance use type: marijuana Other substance usage details: current every day user of marijuana Do You Feel Safe in your Home?: Yes Lack of Transportation: No Lack of Food: Never True Current Housing: I Have Housing Concerned About Future Housing: No Difficulty Paying Gas/Electric Bills: No Difficulty Paying for Meds: No Currently Unemployed: No Education: High School Diploma/GED Difficulty w/ Childcare or Family Care: No Living arrangements: with family Additional living arrangements comments: same sex partner Occupation/Education: occupation 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 HEAD: normocephalic, atraumatic. EYES: PERRLA/EOMI, conjunctivae clear. NOSE: Normal no drainage EARS:TMS clear with good light reflex. THROAT: Pharynx clear, no exudate. NECK: Supple. No adenopathy, no masses. RESPIRATORY: Airway patent, respirations nonlabored. Clear to auscultation bilaterally, no rales, rhonchi, wheezing. CARDIOVASCULAR: Regular rate and rhythm without murmurs rubs or gallops. ABDOMINAL: Soft, nontender, nondistended, normal bowel sounds MUSCULOSKELETAL: Moves all extremities. Strength/ROM intact, No edema, No calf tenderness. NEURO: Alert. Cranial nerves II through XII intact. Grossly intact SKIN: Swelling behind left nipple with no significant overlying erythema, no purulent discharge Course Vital Signs Vital signs: Vital Signs Temperature 98.3 F 06/13/24 08:30 Pulse Rate 86 06/13/24 08:30 Respiratory Rate 18 06/13/24 08:30 Blood Pressure 131/88 06/13/24 08:30 Pulse Oximetry 97 06/13/24 08:30 Oxygen Delivery Room Air 06/13/24 08:30 Temperature 98.7 F 06/13/24 11:39 Pulse Rate 86 06/13/24 08:30 Respiratory Rate 18 06/13/24 08:30 Blood Pressure 131/88 06/13/24 08:30 Pulse Oximetry 97 06/13/24 08:30 Oxygen Delivery Room Air 06/13/24 08:30 Medical Decision Making MDM Narrative Medical decision making narrative: 44-year-old female history of a breast abscess presents emergency department for evaluation for worsening left breast tenderness over the last 3 weeks. Patient did have follow-up with primary care physician on Tuesday was started on Bactrim. Patient presents emergency department today complaining of worsening posterior areola pain. Patient is afebrile with no leukocytosis and normal CRP and normal ESR. Patient does have tenderness and swelling behind the left areola with no cellulitic changes. Ultrasound was ordered and does show phlegmon versus neoplasm. Dr. Arellano was on for breast surgery and was consulted. Radiology did recommend ultrasound as outpatient. Differential Diagnosis Differential Diagnosis: Abscess, mass, cellulitis Vital Signs Vital Signs: Vital Signs Temperature 98.3 F 06/13/24 08:30 Pulse Rate 86 06/13/24 08:30 Respiratory Rate 18 06/13/24 08:30 Blood Pressure 131/88 06/13/24 08:30 Pulse Oximetry 97 06/13/24 08:30 Oxygen Delivery Room Air 06/13/24 08:30 Temperature 98.7 F 06/13/24 11:39 Pulse Rate 86 06/13/24 08:30 Respiratory Rate 18 06/13/24 08:30 Blood Pressure 131/88 06/13/24 08:30 Pulse Oximetry 97 06/13/24 08:30 Oxygen Delivery Room Air 06/13/24 08:30 Lab Data Lab results reviewed: Yes I reviewed the patient's lab results. 06/13/24 08:50 06/13/24 08:50 Labs: Lab Results 06/13/24 06/13/24 Range/Units 08:50 08:52 WBC 9.8 (4.5-10.0) K/mm3 RBC 5.00 (4.2-5.4) M/mm3 Hgb 17.1 H (12.0-15.0) g/dL Hct 48.5 H (37.0-47.0) % MCV 97.0 (80-100) fl MCH 34.2 H (26-34) pg MCHC 35.3 (32-36) g/dl RDW 13.4 (11.5-14.5) % Plt Count 231 (150-375) k/mm3 MPV 9.8 (7.4-10.4) fl Immature Gran % (Auto) 0.3 (0-0.5) % Neut % (Auto) 76.0 H (45.5-73.1) % Lymph % (Auto) 15.8 L (18.3-44.2) % Ida % (Auto) 7.1 (2.6-8.5) % Eos % (Auto) 0.4 (0-4.4) % Baso % (Auto) 0.4 (0.2-1.2) % Lymph # (Auto) 1.54 (0.9-3.2) K/mm3 Ida # (Auto) 0.7 H (0.1-0.6) K/mm3 Eos # (Auto) 0.0 (0-0.3) K/mm3 Baso # (Auto) 0.0 (0.0-0.1) K/mm3 Abs Immat Gran (auto) 0.03 (0.00-0.031) K/mm3 Absolute Neuts (auto) 7.4 H (1.3-6.7) K/mm3 Absolute Nucleated RBC 0.000 (0.0-0.012) K/mm3 Nucleated RBC % 0.0 (0.0-0.2) % ESR 15 (0-20) mm/hr Sodium 137 (137-145) mmol/L Potassium 3.7 (3.4-5.0) mmol/L Chloride 108 H (98-107) mmol/L Carbon Dioxide 18 L (22-30) mmol/L Anion Gap 11 (4-12) mmol/L BUN 13 (7-17) mg/dL Creatinine 0.91 (0.7-1.0) mg/dL Estim Creat Clear Calc 87 ml/min Estimated GFR > 60 (59 - ) Glucose 109 (65-110) mg/dL Calcium 9.3 (8.4-10.2) mg/dL Total Bilirubin 0.7 (0.2-1.3) mg/dL AST 22 (14-36) U/L ALT 23 (6-35) U/L Alkaline Phosphatase 112 (38-126) U/L C-Reactive Protein < 0.5 (<1.0) mg/dL Total Protein 8.0 (6.3-8.2) g/dL Albumin 4.3 (3.5-5.1) g/dL POC Urine HCG, Qual Negative (Negative) Imaging Data Radiologist's impression: Impressions Breast Ultrasound 06/13/24 09:41 Impression: 1: Complex hypoechoic subareolar left breast mass measuring 2 cm. Considerations include phlegmonous change and neoplasm. Recommend correlation with diagnostic bilateral mammogram. BI-RADS CATEGORY 0 - INCOMPLETE STUDY, NEED ADDITIONAL IMAGING EVALUATION. Discharge Plan Discharge Clinical Impression: Breast lump or mass Patient Disposition: Home, Self-Care Condition: Stable Instructions: Antibiotic Form Additional Instructions: Continue your antibiotics as directed. Hydrocodone as needed for pain control. Have close follow-up with the breast surgeon/ plastic surgery. Radiology did recommend a follow-up mammogram. If you have any worsening symptoms please call or return to the emergency department. Patient Language: Malaysian Prescriptions: New hydrocodone-acetaminophen 5-325 mg tablet 1 tablet PO Q12H PRN (Reason: pain) Qty: 14 0RF No Action progesterone micronized 100 mg capsule 100 mg PO QHS Qty: 60 0RF progesterone micronized [Prometrium] 200 mg capsule 200 mg PO QHS Qty: 30 6RF sulfamethoxazole-trimethoprim [Bactrim DS] 800-160 mg tablet 1 tablet PO BID Qty: 28 0RF Follow-up/Referrals: Manny Chambers MD [Physician] - Phi Arellano MD [Physician] - Luis M,Dionicio Hebert MD [Primary Care Provider] -
--- OUTSIDE RECORDS SUMMARY | 2024-06-13 08:49 | XMS_ITS | CONTINUITY OF CARE DOCUMENT ---
Author Name teagan candelaria Address Unknown Organization [facility] Address [address] [address] [place] [address] Phone [phone] Care Team Providers Care Manufacturing Process Engineer Name Role Phone teagan candelaria Unavailable Unavailable INSURANCE PROVIDERS Payer name Policy type / Coverage type Laura red libertarian [employer] Medicaid 1 [id number]
[2024-06-13 08:54] LABS: BEDSIDEPREGUCG Negative (Negative)
[2024-06-13 08:55] LABS: Basophils Percent Auto 0.4 % (0.2-1.2); Eosinophils Percent Auto 0.4 % (0-4.4); Hematocrit 48.5 % (37.0-47.0); Hemoglobin 17.1 g/dL (12.0-15.0); Immature Granulocyte Absolute 0.03 K/mm3 (0.00-0.031); Immature Granulocyte Percent A 0.3 % (0-0.5); Lymphocytes Absolute Auto 1.54 K/mm3 (0.9-3.2); Lymphocytes Percent Auto 15.8 % (18.3-44.2); Mean Corpuscular HGB Conc 35.3 g/dl (32-36); Mean Corpuscular Hemoglobin 34.2 pg (26-34); Mean Platelet Volume 9.8 fl (7.4-10.4); Monocytes Absolute Auto 0.7 K/mm3 (0.1-0.6); Monocytes Percent Auto 7.1 % (2.6-8.5); Neutrophils Absolute Auto 7.4 K/mm3 (1.3-6.7); Platelet Count Result 231 k/mm3 (150-375); Red Cell Distribution Width 13.4 % (11.5-14.5); White Blood Count 9.8 K/mm3 (4.5-10.0)
[2024-06-13 09:06] LABS: Alanine Aminotransferase 23 U/L (6-35); Albumin Level 4.3 g/dL (3.5-5.1); Alkaline Phosphatase 112 U/L (38-126); Anion Gap 11 mmol/L (4-12); Aspartate Amino Transferase 22 U/L (14-36); Bilirubin,Total 0.7 mg/dL (0.2-1.3); Blood Urea Nitrogen 13 mg/dL (7-17); CRP < 0.5 mg/dL (<1.0); Calcium 9.3 mg/dL (8.4-10.2); Carbon Dioxide 18 mmol/L (22-30); Chloride 108 mmol/L (98-107); Estimated CRCL calculation 87 ml/min; Estimated Glomerular Filt Rate > 60; Glucose 109 mg/dL (65-110); Potassium 3.7 mmol/L (3.4-5.0); Sodium 137 mmol/L (137-145)
[2024-06-13 09:36] LABS: Erythrocyte Sedimentation Rate 15 mm/hr (0-20)
[2024-06-13] MEDS: KETOROLAC 15 MG/ML VIAL (*BKC) IV PUSH (11:14)
[2024-06-13] MEDS: HYDROcodone/acetaminophen (*CRX) 7.5-325 MG TABLET 1 TAB PO (11:20)
[2024-06-13 11:39] VITALS: TEMP 37.1
== END 2024-06-13 11:41 | disposition home or self-care (01) ==
PROVIDERS: Emergency Provider Emergency Medicine; PCP Internal Medicine
DX: N63.0 Unspecified lump in unspecified breast (principal); M19.90 Unspecified osteoarthritis, unspecified site
CPT/HCPCS: 36415; 76642; 80053; 81025; 85025; 85652; 86140; 96374; 99284; A9270; J1885

== ENCOUNTER 2024-06-15 10:12 | Emergency (ER) | payer OTHER, SELFPAY ==
--- NOTE | ~2024-06-15 | US_ITS ---
US breast LT limited 06/15/2024 12:03 Indication: Abscess. Worsening pain. Procedure: High-resolution Limited ultrasound left breast Comparison: Ultrasound dated 06/13/2024 Findings: There is a complex hypoechoic subareolar mass of the left breast at 6:00 with developing ar eas of internal fluid. There is significant internal vascularity. This mass measures 3.1 x 2.7 x 1.7 cm compared with 2 x 2 x 1.0 cm on prior examination. Impression: 1: Enlarging complex mass compared with 06/13/2024, likely developing abscess/phlegmonous change. BI-RADS CATEGORY 3-PROBABLY BENIGN FINDING RECOMMENDATION: Follow-up ultrasound in 1-2 months recommended following appropriate therapy. Reviewed, dictated and finalized at location A. Impression: 1: Enlarging complex mass compared with 06/13/2024, likely developing abscess/p hlegmonous change. BI-RADS CATEGORY 3-PROBABLY BENIGN FINDING RECOMMENDATION: Follow-up ultrasound in 1-2 months recommended following approp riate therapy.
[2024-06-15 10:22] VITALS: BP 130/63; PULSE 80; RESP 16; TEMP 36.7; O2SAT 97
--- OUTSIDE RECORDS SUMMARY | 2024-06-15 10:36 | XMS_ITS | Data Portability ---
Author Organization [facility] KATIUSKAErick Address [address] [place] [address] Care Team Providers Care Manpower Development Specialist Manager Name Role Phone LESLEY SOLIS Associate Buyer Assessment Encounter Date Assessment Date Assessment LastModified [...] DO Not Attach Compendium, Do Not Delete/merge, [id number] 2 09:59:27 culture, urine 2021 022 BISI [facility] (Centralized Electronic Ordering - All Locations), Patient Can Go To The Location Of Their Choice, [id number] 03:07:47 urinalysi s, dipstick 2020 021 [email or web address] In-Office Order, Internal Use Only DO Not Attach Compendium DO Not Attach Compendium, Do Not Delete/merge, [id number] 10:23:08 bacterial vaginosis panel, vaginal 2020 021 [facility] (Centralized Electronic Ordering - All Locations), Patient Can Go To The Location Of Their Choice, [address] 1 07:11:09 culture, vaginal/r ectal, streptoco ccus group B 2020 021 [facility] (Centralized Electronic Ordering - All Locations), Patient Can Go To The Location Of Their Choice, [address] 1 07:11:10 urinalysi s, dipstick 2020 021 [email or web address] 1 In-Office Order, Internal Use Only DO Not Attach Compendium DO Not Attach Compendium, Do Not Delete/merge, [id number] 1 17:07:34 culture, urine 2020 021 BISI [...] Go To The Location Of Their Choice, [address] 0 07:09:39 culture, vaginal/r ectal, streptoco ccus group B 2019 020 [facility] (Centralized Electronic Ordering - All Locations), Patient Can Go To The Location Of Their Choice, [address] 0 07:09:39 urinalysi s, dipstick 2019 020 [email or web address] In-Office Order, Internal Use Only DO Not Attach Compendium DO Not Attach Compendium, Do Not Delete/merge, [id number] 0 14:18:37 Referral urologist referral 2021 022 BISI Wahl MD, [address] [facility] [address], [place], [address], 14:32:39 urogyneco logist referral [email or web address] [facility] , [address], [place], [address], 10:10:28 Procedures None recorded. Surgeries None recorded. Imaging None recorded. Medication Orders norethind kamari acetate 5 mg tablet 2021 [facility] #[id number], [address] [place] [place], [place], [id number], 10:00:53 Imvechristopher Abreuan ce Pack 4 mcg vaginal insert 2020 [facility], [address] [place] [address], [address], 09:20:20 Flora s Butt Paste 16 % topical ointment 2020 [facility][id number], [address] [place], [place], [id number], 09:20:17 Bactrim DS 800 mg-160 mg tablet 2019 [facility] #[id number], [address] [place], [place], [id number], 16:43:12 nystatin 100,000 unit/gram topical ointment 2019 [facility] #58728, [address] [place], [place], [id number], 16:42:52 norethind kamari acetate 5 mg tablet 2019 [facility] #[id number] [place], [place], [id number], 0 12:43:28 nystatin 100,000 unit/gram topical ointment [address] [facility], [address] [place], [address], 16:42:52 metronida zole 500 mg tablet [address] [facility], [address] [place], [address], 1 16:42:17 Patient TargetsNo targets recorded. Patient Instructions Encounter Date Encounter Id Patient Instructions Last Modified By Organization Details Last Modified Time 05/07/2019 [id number] candidiasis: care instructions [email or web address] Not available 05/07/2019 13:42:24 bacterial vaginosis: care instructions mwasserman Not available 05/07/2019 13:41:26 When You Want to Lose Weight: Care Instructions [email or web address] Not available 05/07/2019 13:41:26 10/23/2019 [id number] heavy menstrual periods: care instructions [email or web address] Not available 10/23/2019 12:43:21 08/20/2020 [id number] atrophic vaginitis: care instructions mwasserman Not available 08/20/2020 10:33:27 04/07/2021 [id number] A healthy lifestyle: care instructions [email or web address] Not available 04/07/2021 10:01:31 Reason for Referral Urogynecologist Referral for Cystocele possible Grade 1 cystocele, pelvic floor physical therapy Referring Physician: Lesley Solis, Dispensary Technician, Encounter Date: 04/07/2021 Urologist Referral for Recur [...] DO Not Attach Compendium, Do Not Delete/merge, [id number] 08/20/2020 10:02:08 08/21/19 21 08/20/2020 urina lysis [...] DO Not Attach Compendium, Do Not Delete/merge, [id number] 08/20/2020 10:02:08 08/21/19 21 08/20/2020 urina lysis [...] 08/05/2020 urina lysis , dipst ick Specific Belpre 1.030 Not Available In-Off ice Order Internal Use Only DO Not Attach Compendium DO Not Attach Compendium, Do Not Delete/merge, [id number] 08/05/2020 16:46:23 08/06/19 21 08/05/2020 urina lysis , dipst ick Ketone Trace Not Available In-Office Order Internal Use Only DO Not Attach Compendium DO Not Attach Compendium, Do Not Delete/merge, [id number] 08/05/2020 16:46:23 08/06/19 21 08/05/2020 urina lysis , dipst ick Bilirubin Small Not Available In-Offic e Order Internal Use Only DO Not Attach Compendium DO Not Attach Compendium, Do Not Delete/merge, [id number] 08/05/2020 16:46:23 08/06/19 21 08/05/2020 urina lysis , dipst ick Glucose Negati ve Not Available In-Office Order Internal Use Only DO Not Attach Compendium DO Not Attach Compendium, Do Not Delete/merge, 08/05/2020 16:46:23 05/07/19 20 05/09/2019 bacte rial vagin osis panel , vagin al hsv 1 KATHE NEGATI VE negati ve Not Available [facility] ([facility]) [address] [place], [address], 05/11/2019 07:09:39 05/07/19 20 05/09/2019 bacte rial vagin osis panel , vagin al hsv 2 KATHE NEGATI VE negati ve Not Available [facility] ([facility]) [address] [place], [address], 05/11/2019 07:09:39 05/07/19 20 05/10/2019 bacte rial vagin osis panel , vagin al trich vag by KATHE NEGATI VE negati ve Not Available [facility] ([facility]) [address] [place], [address], 05/11/2019 07:09:39 05/07/19 20 05/10/2019 bacte rial vagin osis panel , vagin al chlamydia trachomatis, KATHE NEGATI VE negati ve Not Available [facility] ([facility]) [address] [facility], [place], [address], 05/11/2019 07:09:39 05/07/1905/10/2019 bacte rial vagin osis panel , vagin al neisseria gonorrhoeae, KATHE NEGATI VE negati ve Not Available [facility] ([facility]) [address] [place], [address], 05/11/2019 07:09:39 05/07/19 20 05/11/2019 bacte rial vagin osis panel , vagin al atopobium vaginae LOW - 0 score Not Available [facility] ([facility]) [address] [place], [address], 05/11/2019 07:09:39 05/07/19 20 05/11/2019 bacte rial vagin osis panel , vagin al bvab 2 LOW - 0 score Not Available [facility] ([facility]) [address] [place], [address], 05/11/2019 07:09:39 05/07/1905/11/2019 bacte rial vagin osis [...] is not neces daljit. Not Available [facility] ([facility]) [address] [facility], [place], [address], 05/11/2019 07:09:39 05/07/19 20 05/11/2019 bacte rial vagin osis panel , vagin al kelvin albicans, KATHE NEGATI VE negati ve Not Available [facility] ([facility]) [address] [facility], [place], [address], 05/11/2019 07:09:39 05/07/19 20 05/11/2019 bacte rial vagin osis panel , vagin al kelvin glabrata, KATHE NEGATI VE negati ve Not Available [facility] ([facility]) [address] [facility], [place], [address], 05/11/2019 07:09:39 05/07/19 20 05/09/2019 cultu re, [...] n is noted . Not Available [facility] ([facility]) [address] [facility], [place], [address], 05/11/2019 07:09:39 05/07/19 20 05/07/2019 urina lysis [...] 05/07/2019 urina lysis , dipst ick Specific Belpre 1.030 Not Available In-Off ice Order Internal Use Only DO Not Attach Compendium DO Not Attach Compendium, Do Not Delete/merge, [id number] 05/07/2019 12:47:08 05/07/19 20 05/07/2019 urina lysis , dipst ick Ketone Negati ve Not Available In-Office Order Internal Use Only DO Not Attach Compendium DO Not Attach Compendium, Do Not Delete/merge, [id number] 05/07/2019 12:47:08 05/07/19 20 05/07/2019 urina lysis , dipst ick Bilirubin Negati ve Not Available In-Office Order Internal Use Only DO Not Attach Compendium DO Not Attach Compendium, Do Not Delete/merge, [id number] 05/07/2019 12:47:08 05/07/19 20 05/07/2019 urina lysis , dipst ick Glucose Negati ve Not Available In-Office Order Internal Use Only DO Not Attach Compendium DO Not Attach Compendium, Do Not Delete/merge, [id number] 05/07/2019 12:47:08 08/06/19 21 08/07/2020 bacte rial vagin osis panel , vagin al trich vag by KATHE NEGATI VE negati ve Not Available [facility] ([facility]) [address] [place], [address], 08/08/2020 14:11:23 08/06/19 21 08/07/2020 bacte rial vagin osis panel , vagin al chlamydia trachomatis, KATHE NEGATI VE negati ve Not Available [facility] ([facility]) [address] [place], [address], 08/08/2020 14:11:23 08/06/19 21 08/07/2020 bacte rial vagin osis panel , vagin al neisseria gonorrhoeae, KATHE NEGATI VE negati ve Not Available [facility] ([facility]) [address] [place], [address], 08/08/2020 14:11:23 08/06/19 21 08/08/2020 bacte rial vagin osis panel , vagin al atopobium vaginae MODERA TE - 1 score Not Available [facility] ([facility]) [address] [facility], [place], [address], 08/08/2020 14:11:23 08/06/19 21 08/08/2020 bacte rial vagin osis panel , vagin al bvab 2 LOW - 0 score Not Available [facility] ([facility]) [address] [place], [address], 08/08/2020 14:11:23 08/06/19 21 08/08/2020 bacte rial [...] Drug Admin istra tion. Not Available [facility] ([facility]) [address] [facility], [place], [address], 08/08/2020 14:11:23 08/06/19 21 08/08/2020 bacte rial vagin osis panel , vagin al kelvin albicans, KATHE NEGATI VE negati ve Not Available [facility] ([facility]) [address] [facility], [place], [address], 08/08/2020 14:11:23 08/06/19 21 08/08/2020 bacte rial vagin osis panel , vagin al kelvin glabrata, KATHE NEGATI VE negati ve Not Available [facility] ([facility]) [address] [place], [address], 08/08/2020 14:11:23 08/06/19 21 08/08/2020 bacte rial vagin osis panel , vagin al hsv 1 KATHE NEGATI VE negati ve Not Available [facility] ([facility]) [address] [place], [address], 08/08/2020 14:11:23 08/06/19 21 08/08/2020 bacte rial vagin osis panel , vagin al hsv 2 KATHE NEGATI VE negati ve Not Available [facility] ([facility]) [address] [place], [address], 08/08/2020 14:11:23 08/06/19 21 08/06/2020 cultu re, urine urine culture, routine FINAL REPORT Not Available [facility] ([facility]) [address] [place], [address], 08/08/2020 14:11:24 08/06/19 21 08/06/2020 cultu re, urine result 1 COMMEN T Mixed uroge nital heidy 50,00 0-100 ,000 colon y formi ng units per mL Not Available [facility] ([facility]) [address] [place], [address], 08/08/2020 14:11:24 08/21/19 21 08/23/2020 bacte rial vagin osis panel , vagin al trich vag by KATHE NEGATI VE negati ve Not Available [facility] ([facility]) [address] [place], [address], 08/28/2020 07:11:09 08/21/19 21 08/23/2020 bacte rial vagin osis panel , vagin al chlamydia trachomatis, KATHE NEGATI VE negati ve Not Available [facility] ([facility]) [address] [place], [address], 08/28/2020 07:11:09 08/21/19 21 08/23/2020 bacte rial vagin osis panel , vagin al neisseria gonorrhoeae, KATHE NEGATI VE negati ve Not Available [facility] ([facility]) [address] [facility], [place], [address], 08/28/2020 07:11:09 08/21/19 21 08/25/2020 bacte rial vagin osis panel , vagin al atopobium vaginae HIGH - 2 score abnormal Not Available [facility] ([facility]) [address] [place], [address], 08/28/2020 07:11:09 08/21/19 21 08/25/2020 bacte rial vagin osis panel , vagin al bvab 2 LOW - 0 score Not Available [facility] ([facility]) [address] [facility], [place], [address], 08/28/2020 07:11:09 08/21/19 21 08/25/2020 bacte rial [...] e pratibha cteri stics deter mined by [employer]. It has not been clear ed or appro namita by the Food and Drug Admin istra tion. Not Available [facility] ([facility]) [address] [place], [address], 08/28/2020 07:11:09 08/21/19 21 08/25/2020 bacte rial vagin osis panel , vagin al kelvin albicans, KATHE NEGATI VE negati ve Not Available [facility] ([facility]) [address] [place], [address], 08/28/2020 07:11:09 08/21/19 21 08/25/2020 bacte rial vagin osis panel , vagin al kelvin glabrata, KATHE NEGATI VE negati ve Not Available [facility] ([facility]) [address] [place], [address], 08/28/2020 07:11:09 08/21/19 21 08/28/2020 bacte rial vagin osis panel , vagin al hsv 1 KATHE NEGATI VE negati ve Not Available [facility] ([facility]) [address] [place], [address], 08/28/2020 07:11:09 08/21/19 21 08/28/2020 bacte rial vagin osis panel , vagin al hsv 2 KATHE NEGATI VE negati ve Not Available [facility] ([facility]) [address] [place], [address], 08/28/2020 07:11:09 08/21/19 21 08/22/2020 cultu re, [...] n is noted . Not Available [facility] ([facility]) [address] [facility], [place], [address], 08/28/2020 07:11:10 02/14/20 21 02/14/2021 URINE CULTU RE, CARMENI NE urine culture, routine FINAL REPORT Not Available [facility] ([facility]) [address] [facility], [place], [address], 02/15/2021 03:06:09 02/14/20 21 02/14/2021 URINE CULTU RE, CARMENI NE result 1 COMMEN T Mixed uroge nital heidy Less than 10,00 0 colon ies/m L Not Available [facility] ([facility]) [address] [place], [address], 02/15/2021 03:06:09 02/14/20 21 02/13/2021 urina lysis , dipst ick Leukocytes Trace Not Available In-Offi ce Order Internal Use Only DO Not Attach Compendium DO Not Attach Compendium, Do Not Delete/merge, [id number] 02/13/2021 11:06:21 02/14/20 21 02/13/2021 urina lysis , dipst ick Nitrite negati ve Not Available In-Office Order Internal Use Only DO Not Attach Compendium DO Not Attach Compendium, Do Not Delete/merge, [id number] 02/13/2021 11:06:21 02/14/20 21 02/13/2021 urina lysis , dipst ick Urobilinogen .2 Not Available In-Of fice Order Internal Use Only DO Not Attach Compendium DO Not Attach Compendium, Do Not Delete/merge, [id number] 02/13/2021 11:06:21 02/14/20 21 02/13/2021 urina lysis , dipst ick Protein Negati ve Not Available In-Office Order Internal Use Only DO Not Attach Compendium DO Not Attach Compendium, Do Not Delete/merge, [id number] 02/13/2021 11:06:21 02/14/20 21 02/13/2021 urina lysis , dipst ick pH 5.5 Not Available In-Office Order Internal Use Only DO Not Attach Compendium DO Not Attach Compendium, Do Not Delete/merge, [id number] 02/13/2021 11:06:21 02/14/20 21 02/13/2021 urina lysis , dipst ick Blood Non-He molyze d: Trace Not Available In-Office Order Internal Use Only DO Not Attach Compendium DO Not Attach Compendium, Do Not Delete/merge, [id number] 02/13/2021 11:06:21 02/14/20 21 02/13/2021 urina lysis , dipst ick Specific Belpre 1.030 Not Available In-Off ice Order Internal Use Only DO Not Attach Compendium DO Not Attach Compendium, Do Not Delete/merge, [id number] 02/13/2021 11:06:21 02/14/20 21 02/13/2021 urina lysis , dipst ick Ketone Negati ve Not Available In-Office Order Internal Use Only DO Not Attach Compendium DO Not Attach Compendium, Do Not Delete/merge, [id number] 02/13/2021 11:06:21 02/14/20 21 02/13/2021 urina lysis , dipst ick Bilirubin Small Not Available In-Offic e Order Internal Use Only DO Not Attach Compendium DO Not Attach Compendium, Do Not Delete/merge, [id number] 02/13/2021 11:06:21 02/14/20 21 02/13/2021 urina lysis , dipst ick Glucose Negati ve Not Available In-Office Order Internal Use Only DO Not Attach Compendium DO Not Attach Compendium, Do Not Delete/merge, [id number] 02/13/2021 11:06:21 02/14/20 21 02/13/2021 urina lysis , dipst ick Appearance Cloudy Not Available In-Offi ce Order Internal Use Only DO Not Attach Compendium DO Not Attach Compendium, Do Not Delete/merge, [id number] 02/13/2021 11:06:21 02/14/20 21 02/13/2021 urina lysis , dipst ick Color Hugo Not Available In-Office Order Internal Use Only DO Not Attach Compendium DO Not Attach Compendium, Do Not Delete/merge, [id number] 02/13/2021 11:06:21 04/07/19 22 04/08/2021 URINE CULTU RE, ROUTI NE urine culture, routine Final report Not Available [facility] ([facility]) [address] [place], [address], 04/09/2021 03:07:47 04/07/19 22 04/08/2021 URINE CULTU RE, ROUTI NE result 1 Commen t Mixed uroge nital heidy 25,00 0-50, 000 colon y formi ng units per mL Not Available [facility] ([facility]) [address] [place], [address], 04/09/2021 03:07:47 04/07/19 22 04/07/2021 urina lysis , dipst ick Leukocytes Small Not Available In-Offi ce Order Internal Use Only DO Not Attach Compendium DO Not Attach Compendium, Do Not Delete/merge, [id number] 04/07/2021 09:32:49 04/07/19 22 04/07/2021 urina lysis , dipst ick Nitrite negati ve Not Available In-Office Order Internal Use Only DO Not Attach Compendium DO Not Attach Compendium, Do Not Delete/merge, [id number] 04/07/2021 09:32:49 04/07/19 22 04/07/2021 urina lysis [...] 04/07/2021 urina lysis , dipst ick Specific Belpre 1.025 Not Available In-Off ice Order Internal [...] contr ast No observ ation record ed. [facility] ([facility]) [address] [place], [address], 10/23/2019 13:27:35 06/07/19 21 06/05/2020 CT, abdom en + pelvi s, w/o contr ast No observ ation record ed. [facility] [address] [place], [address], 08/20/2020 09:58:51 10/29/19 21 10/27/2020 XR, foot, 2 view No observ ation record ed. [address] ([employer] [facility] [employer]) [address] [place], [address], 04/07/2021 09:40:41 04/07/19 22 03/02/2021 CT, abdom en + pelvi s, w/o contr ast No observ ation record ed. [facility] [address] [place], [address], 04/07/2021 10:15:29 Result Notes None recorded. Problems Name Problem SNOMED Code Status Onset Date Resolution Date Notes Provider Name and Address Organization Details Recorded Time Female sterilization Active 2019 Not Available [facility] 2 02:49:41 Smoker 11570093 Active 2019 Not Available [facility] 2 02:49:41 Deliveries by [id number] Active 2019 Not Available [facility] 2 02:49:41 Bacterial vaginosis 769241783 Active 2020 Not Available [facility] 2 02:49:41 Problem Notes None recorded. Procedures Surgical History Date Name Laterality Status Provider Name and Address Organization Details Recorded Time 03/25/19 22 procedure on umbilicus completed Anushka Claire MA [facility] 04/07/2021 09:18:08 05/09/19 18 Date of Last Pap Smear completed Cheikh Banuelos MA [facility] 07/18/2018 14:40:29 03/14/18 86 Tonsillectomy completed Aundrea Leonard MA [facility] 05/09/2017 15:27:18 03/24/18 80 Caesarean Section completed Aundrea Leonard MA [facility] 05/09/2017 15:27:34 ligation of bilateral fallopian tubes completed Farshad Samayoa MA [facility] 05/29/2018 11:34:42 Appendectomy completed Anushka Claire MA [facility] 08/05/2020 16:45:52 Imaging Results Imaging Date Name Status LastModified by Organiz ation Details LastModified Time 10/16/2019 CT, abdomen + pelvis, w/o contrast completed [facility] [address] [place], [address], 10/23/2019 13:27:35 06/05/2020 CT, abdomen + pelvis, w/o contrast completed [facility] [address] [place], [address], 08/20/2020 09:58:51 10/27/2020 XR, foot, [address] ([facility]) [address] [place], [address], 04/07/2021 09:40:41 03/02/2021 CT, abdomen + pelvis, w/o contrast completed [facility] [address] [place], [address], 04/07/2021 10:15:29 Procedure Notes None recorded. Medical Equipment None Reported. Allergies Allergen ID Allergen Name Allergen Category Reaction Reaction Severity Criticality Documentation Date Start Date Code Code System Note Provider Name and Address Organization Details Recorded Time 13619 codeine medicatio n Not available Not available Not available 09/26/2014 1788 RxNorm Not Available Not Available Not Available [...] 102 mm[Hg] 76 mm[Hg] Yodit Mauricio MA [facility] 05/07/2019 12:52:47 Date Recorded Body mass index (BMI) Body weight Provider Name and Address Organization Details Last Updated DateTime 05/07/2019 56 kg/m2 212987.15 g Rose Hernandez MA [facility] 05/07/2019 12:45:22 Date Recorded Body height Body mass index (BMI) Body weight Provider Name and Address Organization Details Last Updated DateTime 10/23/2019 161.29 cm 56.3 kg/m2 935872.34 g Rose Hernandez MA [facility] 10/23/2019 12:37:15 Date Recorded Body height Body mass index (BMI) Body weight Systolic blood pressure Diastolic blood pressure Provider Name and Address Organization Details Last Updated DateTime 08/05/2020 161.29 cm 55.8 kg/m2 749360.5 6 g 120 mm[Hg] 80 mm[Hg] Anushka Claire MA [facility] 16:48:59 Date Recorded Body height Body mass index (BMI) Body weight Systolic blood pressure Diastolic blood pressure Provider Name and Address Organization Details Last Updated DateTime 08/20/2020 161.29 cm 55.6 kg/m2 174527.9 7 g 118 mm[Hg] 74 mm[Hg] Margareth JULIANNE Posada [place] [facility] 1 10:01:54 Date Recorded Body height Body mass index (BMI) Body weight Systolic blood pressure Diastolic blood pressure Provider Name and Address Organization Details Last Updated DateTime 04/07/2021 161.29 cm 56.1 kg/m2 378888.7 4 g 128 mm[Hg] 76 mm[Hg] Anushka Claire MA [facility] 2 09:20:13 Social History Question Answer Notes LastModified by Organizat ion Details LastModified Time Tobacco Smoking Status Current Every Day Smoker cigarettes Farshad Samayoa MA null, [place] [facility] 09/26/2014 14:25:03 Do You Have [...] t available 05/09/2017 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 Information not available 05/09/2017 Hard Of Hearing [...] Problems N Kidney or Bladder Problems N GI Problems N Depression N Blood Clots N Lung Disease N Acne N Breast Problem N Eating Disorder N Anemia N Anesthesia Complications N Headaches/Migraines N Anxiety Disorder N Diabetes N Ovarian Cancer N Muscle, Joint, or Bone Problems N [...] SNOMED-CT Code Diagnosis ICD10 Code Diagnosis Note [id number] Amna (Adult Med) [address] [place] [phone] 09/26/2014 13:59:45 09/26/2014 14:55:25 Adult health examination [id number] MD Amna Purdy (Adult Med) [address] [place] [phone] 09/27/2014 12:20:47 09/27/2014 14:38:07 Tuberculosis screening 170535258 [id number] Aureliano Woo (DIE ENGRAVING SUPERVISOR) [address] [place] [phone] 05/09/2017 14:39:29 05/09/2017 16:48:53 Gynecologic examination 16245193 Z01.419 Obesity 275394567 E66.9 Female sterilization 608 24639 Z30.2 Deliveries by [id number] O82 Abnormal u terine bleeding 3869041570 9100 N93.9 Candidiasis of skin 4988 3006 B37.2 Family bridget nning surveillance 777601836 Z30.09 Exposure t o sexually transmissible disorder 724071355 Z20.2 [id number] MD Amna Purdy (Adult Med) [address] [place] [phone] 0 05/29/2018 10:38:39 06/09/2018 15:59:43 [id number] Aureliano Woo (DIE ENGRAVING SUPERVISOR) [address] [place] [phone] 07/19/2018 14:16:20 07/19/2018 17:13:15 Candidiasis of vagina 20731930 B37.3 Folliculitis 59596964 L7 3.9 [facility] nning surveillance 019384706 Z30.09 sterilizat ion Exposure t o sexually transmissible disorder 592084231 Z20.2 [id number] Aureliano Woo (DIE ENGRAVING SUPERVISOR) [address] [place] [phone] 0 05/07/2019 12:10:51 05/08/2019 11:20:53 Exposure to sexually transmissible disorder 976854338 Z20.2 Female sterilization 608 57984 Z30.2 Morbid obesity 528139796 Z68.43 Smoker 68234934 F17.200 Deliveries by [id number] O82 [facility] nning surveillance 669283359 Z30.09 sterilizat ion Bacterial vaginosis 4197 00843 N76.0 Candidiasis 99229360 B37 .9 [id number] Aureliano Woo (DIE ENGRAVING SUPERVISOR) [address] [place] [phone] 0 10/23/2019 12:35:13 10/24/2019 07:32:41 Candidiasis 67741779 B37.9 Acute urin omari tract infection [id number] N39.0 Menorrhagia [id number] N9 2.0 [id number] SAUMYA PEREZ (DIE ENGRAVING SUPERVISOR) [address] [place] [phone] 08/05/2020 16:17:28 08/09/2020 18:48:12 Dysuria [id number] R30.9 UA unremarkab le, will send for culture given patients symptoms. Advised increased water intake (pt states she never drinks water). Acute vaginitis 37006993 N76.0 PE unremarkab le. Sample collected. Will treat pending results. Use mild, unscented soaps or plain water when washing, avoid any products with fragrance. Wear cotton underwear and loose fitting clothing. Wash only once per day, do not overscrub or douche. [id number] Aureliano Danielle Amna (DIE ENGRAVING SUPERVISOR) [address] [place] [address] [phone] 08/20/2020 09:40:23 08/25/2020 06:49:15 Smoker 84145975 F17.200 Female sterilization 608 58854 Z30.2 Vulvitis 15994645 N76.2 Atrophic vaginitis 48573 000 N95.2 Exposure t o sexually transmissible disorder [id number] Z20.2 [id number] SAUMYA PEREZ (DIE ENGRAVING SUPERVISOR) [address] [place] [address] [phone] 04/07/2021 08:46:46 04/09/2021 07:41:37 Cystocele 330543361 N81.10 Possible Grade 1 cystocele, no increased bulging with bearing down. Discussed kegel/pelv ic floor exercises to help with symptoms and to avoid any heavy lifting/sq uatting. Talked with pt and she is aware weight loss could be beneficial . Referral to urogyn for further eval and management . Recurrent urinary tract infection [id number] N39.0 Pt treated for recurrent UTIs and has chronic irritative voiding symptoms. UA unremarkab le today but will send for culture. Referred to urologist. Menorrhagia [id number] N9 2.0 Pt says post tubal ligation she got very painful cramping and HMB so norethindr one was started which has alleviated her symptoms. Renewed today. Morbid obesity 755883092 E66.01 BMI 56.1. Discussed healthy diet (including [...] Crook Member ID Guarantor Name 05/07/2019 1 [facility] - HOME CARE & STAGE MANAGER [facility] - OPEN ACCESS III (PPO) [id number] Mandi Dexheimer [id number] Mnadi Dexheimer 10/23/2019 1 [facility] HOME CARE & STAGE MANAGER [facility] - OPEN ACCESS III (PPO) [id number] Mandi Dexheimer [id number] Mandi Dexheimer 08/05/2020 1 [facility] - HOME CARE & STAGE MANAGER [facility] - OPEN ACCESS III (PPO) [id number] Mandi Dexheimer [id number] Mandi Dexheimer 08/20/2020 1 [facility] - HOME CARE & STAGE MANAGER [facility] - OPEN ACCESS III (PPO) [id number] Mandi Dexheimer [id number] Mandi Dexheimer 04/07/2021 1 [facility] HOME CARE & STAGE MANAGER [facility] - OPEN ACCESS III (PPO) [id number] Mandi Dexheimer [id number] Mandi Dexheimer Notes Date Note Type Note [...] yo F, , presents for [facility] 05/07/2019 18:24:56 10/23/2019 text/html Recurrent UTIRep orted bypatient.Associated Symptoms:no incontinence; no nocturia; no hematuria; no incomplete emptying; no flank pain; no back pain; no kidney stones;frequency;urgen cy;dysuria 39 yo F, , presents for dysuria frequency, seen in the ER given macrobid side effect nausea, patient stopped med Aureliano PearceLolis jose [facility] 10/23/2019 13:29:49 08/05/2020 text/html 40 yo who [...] topical preparations. SAUMYA PEREZ Attn: [address]ing[address] [place], [address], [facility] 08/13/2020 17:32:43 08/20/2020 text/html Recurrent UTIRep [...] difficulty using topical preparations. Aureliano PearceLolischris garcia [facility] 08/20/2020 16:17:56 04/07/2021 text/html Annual GYNReport ed [...] vaginal irritation/pruritis. SAUMYA PEREZ Attn: [address] [place], [address], [facility] 04/08/2021 10:19:39 OBGyn Episode Ob Episode Information Episode Created Date Number of Fetuses Patient Bloodtype Patient rh Status Prepregnancy Weight lbs Domestic Partner Domestic Partner Phone Father Name Electronics Design Engineer Status 05/09/19 18 1 CLOSED Fetus Data First Name Last Name Admitted to NICU Weight (g) Sex Living Outcome Pediatric Complications Fetus ID Race Codes Race Delivery Type 3175.14 4 Full Term [id number] Gera Calculation Initial Gera Date Initial Exam [...]
--- OUTSIDE RECORDS SUMMARY | 2024-06-15 10:36 | XMS_ITS | CONTINUITY OF CARE DOCUMENT ---
Author Name teagan candelaria Address Unknown Organization [facility] Address [address] [place] [address] Phone [phone] Care Team Providers Care Workforce Consultant Name Role Phone teagan candelaria Unavailable Unavailable INSURANCE PROVIDERS Payer name Policy type / Coverage type Laura red democrat [employer] [facility] [facility] Medicaid 1 [id number]
--- OUTSIDE RECORDS SUMMARY | 2024-06-15 10:53 | XMS_ITS | CONTINUITY OF CARE DOCUMENT ---
Author Name teagan candelaria Address Unknown Organization [facility] Address [address] [place] [address] Phone [phone] Care Team Providers Care Patients Transporter Name Role Phone teagan candelaria Unavailable Unavailable INSURANCE PROVIDERS Payer name Policy type / Coverage type Laura red libertarian [employer] [facility] [facility] Medicaid 1 [id number]
--- NOTE | 2024-06-15 11:17 | ED.SKABFB ---
HPI - Skin/Abscess/Foreign Bdy General Chief complaint: Skin/Abscess/Foreign Body Stated complaint: mass on L breast is getting bigger? Time Seen by Provider: 06/15/24 10:24 Source: patient and old records reviewed Mode of arrival: ambulatory Limitations: no limitations History of Present Illness HPI narrative: Patient is a 44-year-old female who presents the ED with report of left breast pain and swelling. Patient reports she was seen here 2 days ago for left breast pain. Ultrasound of breast at that time showed phlegmonous changes versus neoplasm of left breast. Patient was on Bactrim at that time, referred to breast surgery for further evaluation. She does have history of previous left breast abscess which required surgery in the past. States since then, the redness, pain, swelling, induration of left breast has worsened. States she has had nausea, vomiting, unable to keep down antibiotics since yesterday afternoon. Has not taken anything for pain today. Denies known fevers. Denies nipple discharge or nipple inversion. Has a mammogram scheduled for next Tuesday. Related Data Allergies Allergy/AdvReac Type Severity Reaction Status Date / Time codeine Allergy Intermediate Swelling Verified 06/15/24 10:27 metronidazole Allergy Intermediate Swelling Verified 06/15/24 10:27 Review of Systems Review of Systems: All systems reviewed & are unremarkable except as noted in HPI. All systems reviewed & are unremarkable except as noted in HPI and below PMFSH Past Medical History Medical History Vaginal odor Screening mammogram, encounter for Nipple discharge Bulging disc Arthritis Hernia (03/25/21) umbilical hernia with mesh Breast abscess 2018 lt breast which turned septic Surgical History Surgical History History of hysteroscopy (08/19/22) Hscope D&C / endometrial Ablation History of hysteroscopy (02/18/22) Hscope D&C / polypectomy History of History of tubal ligation History of appendectomy 2020 Family History Family History Grandparent Hypertension Other Cerebrovascular accident maternal aunt Social History Social History (Reviewed 06/15/24 @ 11:21 by DAVID Lo Smoking packs per day: 2 Smoking cigarettes per day: 40.0 Years smoked: 30 Smoking pack-years: 60.00 Smoking status: Current every day smoker Tobacco type: cigarettes Second hand tobacco smoke exposure: Yes (spouse smokes also) Alcohol intake: current Alcohol use details: 1-2 a year Substance use: current Substance use type: marijuana Other substance usage details: current every day user of marijuana Do You Feel Safe in your Home?: Yes Lack of Transportation: No Lack of Food: Never True Current Housing: I Have Housing Concerned About Future Housing: No Difficulty Paying Gas/Electric Bills: No Difficulty Paying for Meds: No Currently Unemployed: No Education: High School Diploma/GED Difficulty w/ Childcare or Family Care: No Living arrangements: with family Additional living arrangements comments: same sex partner Occupation/Education: occupation 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 HEAD: Normocephalic, atraumatic. RESPIRATORY: Airway patent, respirations nonlabored. Clear to auscultation bilaterally, no rales, rhonchi, wheezing. CARDIOVASCULAR: Regular rate and rhythm BREAST: Induration and focal tenderness to palpation in left breast subareolar region, extending laterally. Erythema, warmth in lateral areolar region. No nipple drainage, nipple inversion. MUSCULOSKELETAL: Moves all extremities. No gross deformities. SKIN: Warm, dry, normal color. NEURO: A&O X3. Speech clear. PSYCHIATRIC: Appropriate mood and affect. Normal interaction. Course Vital Signs Vital signs: Vital Signs Temperature 98.1 F 06/15/24 10:22 Pulse Rate 80 06/15/24 10:22 Respiratory Rate 16 06/15/24 10:22 Blood Pressure 130/63 06/15/24 10:22 Pulse Oximetry 97 06/15/24 10:22 Oxygen Delivery Room Air 06/15/24 10:22 Temperature 98.1 F 06/15/24 10:22 Pulse Rate 80 06/15/24 10:22 Respiratory Rate 16 06/15/24 10:22 Blood Pressure 130/63 06/15/24 10:22 Pulse Oximetry 97 06/15/24 10:22 Oxygen Delivery Room Air 06/15/24 10:22 MDM - Skin/Abscess/Foreign Bdy MDM Narrative Medical decision making narrative: Repeat US today showing enlarging breast mass, likely developing abscess. Laboratory studies are reassuring. No evidence of sepsis this time. Hemodynamically stable. Will discuss with breast surgery. Patient has been on course of Bactrim recently. Discussed with Dr. Bee, breast surgery, reviewed images herself. No fluid collection amenable to drainage at this time. Recommended dose of zosyn and vanc in the ED, switch to Augmentin. Will have office call patient on Tuesday to see then. Patient in agreement with this plan. Provided reassurance that she is not currently septic or require urgent surgery at this time. Will also d/c with short course of pain medication and Zofran for home use. Given return precautions. Discharged in stable condition. Medical Records Attestation: I reviewed the patient's medical records. Lab Data Attestation: I reviewed the patient's lab results. 06/15/24 11:33 06/15/24 11:33 Labs: Lab Results 06/15/24 Range/Units 11:33 WBC 9.6 (4.5-10.0) K/mm3 RBC 4.84 (4.2-5.4) M/mm3 Hgb 16.3 H (12.0-15.0) g/dL Hct 47.9 H (37.0-47.0) % MCV 99.0 (80-100) fl MCH 33.7 (26-34) pg MCHC 34.0 (32-36) g/dl RDW 13.3 (11.5-14.5) % Plt Count 242 (150-375) k/mm3 MPV 9.9 (7.4-10.4) fl Immature Gran % (Auto) 0.4 (0-0.5) % Neut % (Auto) 66.2 (45.5-73.1) % Lymph % (Auto) 25.4 (18.3-44.2) % [place] % (Auto) 6.7 (2.6-8.5) % Eos % (Auto) 0.7 (0-4.4) % Baso % (Auto) 0.6 (0.2-1.2) % Lymph # (Auto) 2.43 (0.9-3.2) K/mm3 [place] # (Auto) 0.6 (0.1-0.6) K/mm3 Eos # (Auto) 0.1 (0-0.3) K/mm3 Baso # (Auto) 0.1 (0.0-0.1) K/mm3 Abs Immat Gran (auto) 0.04 H (0.00-0.031) K/mm3 Absolute Neuts (auto) 6.3 (1.3-6.7) K/mm3 Absolute Nucleated RBC 0.000 (0.0-0.012) K/mm3 Nucleated RBC % 0.0 (0.0-0.2) % Sodium 137 (137-145) mmol/L Potassium 4.0 (3.4-5.0) mmol/L Chloride 106 (98-107) mmol/L Carbon Dioxide 22 (22-30) mmol/L Anion Gap 9 (4-12) mmol/L BUN 13 (7-17) mg/dL Creatinine 0.69 L (0.7-1.0) mg/dL Estim Creat Clear Calc Not Reportable Estimated GFR > 60 (59 - ) Glucose 90 (65-110) mg/dL Lactic Acid 1.0 (0.7-2.0) mmol/L Calcium 9.1 (8.4-10.2) mg/dL Imaging Data Attestation: I personally reviewed and interpreted this imaging study as follows: Radiologist's impression: ITS Impressions Breast Ultrasound 06/15/24 12:10 Impression: 1: Enlarging complex mass compared with 06/13/2024, likely developing abscess/phlegmonous change. BI-RADS CATEGORY 3-PROBABLY BENIGN FINDING RECOMMENDATION: Follow-up ultrasound in 1-2 months recommended following appropriate therapy. Discharge Plan Discharge Clinical Impression: Cellulitis of left breast Patient Disposition: Home, Self-Care Condition: Stable Instructions: Antibiotic Form, Cellulitis (ED), Abscess (ED), Breast Mass (ED) Additional Instructions: Take new antibiotics as prescribed. Stay well hydrated. Recommend frequent warm compresses to breast. Continue Tylenol/ibuprofen as needed for pain. Oxycodone as needed for more severe pain. You can take these together. Zofran as needed for nausea. The breast surgery office should be contacting you on Tuesday morning to make follow-up appointment for further evaluation and management. Return to ED if you experience worsening or severe pain or swelling, fevers, or any other symptoms of concern. Patient Language: Setswana Prescriptions: New amoxicillin-pot clavulanate 875-125 mg tablet 1 tablet PO Q12H 7 Days Qty: 14 0RF ondansetron 4 mg tablet,disintegrating 4 mg PO Q8H PRN (Reason: nausea and vomiting) Qty: 15 0RF oxycodone 5 mg tablet 5 mg PO Q6H PRN (Reason: pain) Qty: 10 0RF No Action progesterone micronized 100 mg capsule 100 mg PO QHS Qty: 60 0RF hydrocodone-acetaminophen 5-325 mg tablet 1 tablet PO Q12H PRN (Reason: pain) Qty: 14 0RF progesterone micronized [Prometrium] 200 mg capsule 200 mg PO QHS Qty: 30 6RF sulfamethoxazole-trimethoprim [Bactrim DS] 800-160 mg tablet 1 tablet PO BID Qty: 28 0RF Follow-up/Referrals: Luis M,Dionicio Hebert MD [Primary Care Provider] - Candace Bee MD [Physician] - (BREAST SURGERY) Time of Disposition: 13:32
[2024-06-15] MEDS: MORPHINE SULFATE (*CRX) 4 MG/ML INJ IV PUSH (11:34)
[2024-06-15] MEDS: ONDANSETRON INJ 4 MG/2 ML VIAL IV PUSH (11:35)
[2024-06-15 11:46] LABS: Basophils Absolute Auto 0.1 K/mm3 (0.0-0.1); Basophils Percent Auto 0.6 % (0.2-1.2); Eosinophils Absolute Auto 0.1 K/mm3 (0-0.3); Eosinophils Percent Auto 0.7 % (0-4.4); Hematocrit 47.9 % (37.0-47.0); Hemoglobin 16.3 g/dL (12.0-15.0); Immature Granulocyte Absolute 0.04 K/mm3 (0.00-0.031); Immature Granulocyte Percent A 0.4 % (0-0.5); Lymphocytes Absolute Auto 2.43 K/mm3 (0.9-3.2); Lymphocytes Percent Auto 25.4 % (18.3-44.2); Mean Corpuscular Hemoglobin 33.7 pg (26-34); Mean Platelet Volume 9.9 fl (7.4-10.4); Monocytes Absolute Auto 0.6 K/mm3 (0.1-0.6); Monocytes Percent Auto 6.7 % (2.6-8.5); Neutrophils Absolute Auto 6.3 K/mm3 (1.3-6.7); Neutrophils Percent Auto 66.2 % (45.5-73.1); Platelet Count Result 242 k/mm3 (150-375); Red Blood Count 4.84 M/mm3 (4.2-5.4); Red Cell Distribution Width 13.3 % (11.5-14.5); White Blood Count 9.6 K/mm3 (4.5-10.0)
[2024-06-15 12:07] LABS: Anion Gap 9 mmol/L (4-12); Blood Urea Nitrogen 13 mg/dL (7-17); Calcium 9.1 mg/dL (8.4-10.2); Carbon Dioxide 22 mmol/L (22-30); Chloride 106 mmol/L (98-107); Estimated Glomerular Filt Rate > 60; Glucose 90 mg/dL (65-110); Sodium 137 mmol/L (137-145)
[2024-06-15] MEDS: PIPERACILLIN/TAZ 4.5G/NS 100ML 4.5 GM/100 ML BAG IVPB (12:55)
[2024-06-15] MEDS: oxyCODONE HCL (*CRX) 5 MG TAB IR PO (14:05)
--- NOTE | 2024-06-15 14:12 | PC.NURSE ---
Readjusted pt arm to allow for IV abx to infuse
[2024-06-15] MEDS: VANCOMYCIN 1,250 MG/NS 250 ML BAG 166.67 MG IVPB ×2 (15:08→16:36)
== END 2024-06-15 18:15 | disposition home or self-care (01) ==
PROVIDERS: Emergency Provider Physician Assistant; PCP Internal Medicine
DX: N61.0 Mastitis without abscess (principal); F17.210 Nicotine dependence, cigarettes, uncomplicated
CPT/HCPCS: 36415; 76642; 80048; 83605; 85025; 96365; 96366; 96367; 96375; 99284; A9270; J2270; J2405; J2543; J3370

== ENCOUNTER 2024-06-19 14:51 | Outpatient (NON) | payer OTHER, SELFPAY | END 2024-06-19 14:52 | disposition home or self-care (01) | PROVIDERS: PCP Internal Medicine; Visit Provider Surgery | DX: N61.1 Abscess of the breast and nipple (principal) | CPT/HCPCS: 87070; 87075; 87205 ==

== ENCOUNTER 2024-07-13 07:44 | Outpatient (CLI) | payer OTHER, SELFPAY ==
--- OUTSIDE RECORDS SUMMARY | 2024-07-13 07:51 | XMS_ITS | CONTINUITY OF CARE DOCUMENT ---
Author Name teagan candelaria Address Unknown Organization [facility] Address [address] [place] [address] Phone [phone] Care Team Providers Care Fire Chief Name Role Phone teagan candelaria Unavailable Unavailable INSURANCE PROVIDERS Payer name Policy type / Coverage type Laura red republican [employer] Medicaid 1 [id number]
--- OUTSIDE RECORDS SUMMARY | 2024-07-13 07:51 | XMS_ITS | Data Portability ---
Author Organization [facility] KATIUSKAErick Address [address] [place] [address] Care Team Providers Care Sample Collector Name Role Phone LESLEY SOLIS Resource Recovery Specialist Assessment Encounter Date Assessment Date Assessment LastModified [...] DO Not Attach Compendium, Do Not Delete/merge, [id number] 2 09:59:27 culture, urine 2021 022 [facility]IS[facility] (Centralized Electronic Ordering - All Locations), Patient Can Go To The Location Of Their Choice, [id number] 03:07:47 urinalysi s, dipstick 2020 021 [email or web address] In-Office Order, Internal Use Only DO Not Attach Compendium DO Not Attach Compendium, Do Not Delete/merge, [id number] 10:23:08 bacterial vaginosis panel, vaginal 2020 021 [facility] (Centralized Electronic Ordering - All Locations), Patient Can Go To The Location Of Their Choice, [address] 1 07:11:09 culture, vaginal/r ectal, streptoco ccus group B 2020 021 [facility] (Centralized Electronic Ordering - All Locations), Patient Can Go To The Location Of Their Choice, [id number] 1 07:11:10 urinalysi s, dipstick 2020 021 [email or web address] 1 In-Office Order, Internal Use Only DO Not Attach Compendium DO Not Attach Compendium, Do Not Delete/merge, [id number] 1 17:07:34 culture, urine 2020 021 BISI [...] Go To The Location Of Their Choice, [address] 0 07:09:39 culture, vaginal/r ectal, streptoco ccus group B 2019 020 [facility] (Centralized Electronic Ordering - All Locations), Patient Can Go To The Location Of Their Choice, [address] 0 07:09:39 urinalysi s, dipstick 2019 020 [email or web address] In-Office Order, Internal Use Only DO Not Attach Compendium DO Not Attach Compendium, Do Not Delete/merge, [id number] 0 14:18:37 Referral urologist referral 2021 022 BISI Wahl MD, [address] [facility] [address], [place], [address], 14:32:39 urogyneco logist referral 2021 [email or web address] [facility] , [address], [place], [address], 10:10:28 Procedures None recorded. Surgeries None recorded. Imaging None recorded. Medication Orders norethind kamari acetate 5 mg tablet 2021 [facility][id number], [address] [place], [place], [id number], 10:00:53 Imvechristopher Abreuan ce Pack 4 mcg vaginal insert 2020 [facility], [address] [place] [address], [address], 09:20:20 Flora s Butt Paste 16 % topical ointment [address] [facility]09374, [address] [place], [place], [id number], 09:20:17 Bactrim DS 800 mg-160 mg tablet 2019 [facility] #37346, [address] [place], [place], [id number], 16:43:12 nystatin 100,000 unit/gram topical ointment 2019 [facility] #92974, [address] [place], [place], [id number], 16:42:52 norethind kamari acetate 5 mg tablet 2019 [facility] #[id number] [place], [place], [id number], 0 12:43:28 nystatin 100,000 unit/gram topical ointment 2019 020 [facility]22, [address] [place], [address], 16:42:52 metronida zole 500 mg tablet 2019 020 [facility]22, [address] [place], [address], 1 16:42:17 Patient TargetsNo targets recorded. Patient Instructions Encounter Date Encounter Id Patient Instructions Last Modified By Organization Details Last Modified Time 05/07/2019 [id number] candidiasis: care instructions [email or web address] Not available 05/07/2019 13:42:24 bacterial vaginosis: care instructions mwasserman Not available 05/07/2019 13:41:26 When You Want to Lose Weight: Care Instructions [email or web address] Not available 05/07/2019 13:41:26 10/23/2019 [id number] heavy menstrual periods: care instructions mwasserman Not available 10/23/2019 12:43:21 08/20/2020 [id number] atrophic vaginitis: care instructions mwasserman Not available 08/20/2020 10:33:27 04/07/2021 [id number] A healthy lifestyle: care instructions [email or web address] Not available 04/07/2021 10:01:31 Reason for Referral Urogynecologist Referral for Cystocele possible Grade 1 cystocele, pelvic floor physical therapy Referring Physician: Lesley Solis, Spot Billing Clerk, Encounter Date: 04/07/2021 Urologist Referral for Recur [...] DO Not Attach Compendium, Do Not Delete/merge, [id number] 08/20/2020 10:02:08 08/21/19 21 08/20/2020 urina lysis [...] DO Not Attach Compendium, Do Not Delete/merge, [id number] 08/20/2020 10:02:08 08/21/19 21 08/20/2020 urina lysis [...] 08/05/2020 urina lysis , dipst ick Specific [place] 1.030 Not Available In-Off ice Order Internal Use Only DO Not Attach Compendium DO Not Attach Compendium, Do Not Delete/merge, [id number] 08/05/2020 16:46:23 08/06/19 21 08/05/2020 urina lysis , dipst ick Ketone Trace Not Available In-Office Order Internal Use Only DO Not Attach Compendium DO Not Attach Compendium, Do Not Delete/merge, [id number] 08/05/2020 16:46:23 08/06/19 21 08/05/2020 urina lysis , dipst ick Bilirubin Small Not Available In-Offic e Order Internal Use Only DO Not Attach Compendium DO Not Attach Compendium, Do Not Delete/merge, [id number] 08/05/2020 16:46:23 08/06/19 21 08/05/2020 urina lysis , dipst ick Glucose Negati ve Not Available In-Office Order Internal Use Only DO Not Attach Compendium DO Not Attach Compendium, Do Not Delete/merge, 08/05/2020 16:46:23 05/07/19 20 05/09/2019 bacte rial vagin osis panel , vagin al hsv 1 KATHE NEGATI VE negati ve Not Available [facility] ([facility]) [address] [place], [address], 05/11/2019 07:09:39 05/07/19 20 05/09/2019 bacte rial vagin osis panel , vagin al hsv 2 KATHE NEGATI VE negati ve Not Available [facility] ([facility]) [address] [place], [address], 05/11/2019 07:09:39 05/07/19 20 05/10/2019 bacte rial vagin osis panel , vagin al trich vag by KATHE NEGATI VE negati ve Not Available [facility] ([facility]) [address] [place], [address], 05/11/2019 07:09:39 05/07/19 20 05/10/2019 bacte rial vagin osis panel , vagin al chlamydia trachomatis, KATHE NEGATI VE negati ve Not Available [facility] ([facility]) [address] [facility], [place], [address], 05/11/2019 07:09:39 05/07/1905/10/2019 bacte rial vagin osis panel , vagin al neisseria gonorrhoeae, KATHE NEGATI VE negati ve Not Available [facility] ([facility]) [address] [place], [address], 05/11/2019 07:09:39 05/07/19 20 05/11/2019 bacte rial vagin osis panel , vagin al atopobium vaginae LOW - 0 score Not Available [facility] ([facility]) [address] [place], [address], 05/11/2019 07:09:39 05/07/19 20 05/11/2019 bacte rial vagin osis panel , vagin al bvab 2 LOW - 0 score Not Available [facility] ([facility]) [address] [place], [address], 05/11/2019 07:09:39 05/07/1905/11/2019 bacte rial vagin osis [...] is not neces daljit. Not Available [facility] ([facility]) [address] [facility], [place], [address], 05/11/2019 07:09:39 05/07/19 20 05/11/2019 bacte rial vagin osis panel , vagin al kelvin albicans, KATHE NEGATI VE negati ve Not Available [facility] ([facility]) [address] [facility], [place], [address], 05/11/2019 07:09:39 05/07/19 20 05/11/2019 bacte rial vagin osis panel , vagin al kelvin glabrata, KATHE NEGATI VE negati ve Not Available [facility] ([facility]) [address] [facility], [place], [address], 05/11/2019 07:09:39 05/07/19 20 05/09/2019 cultu re, [...] n is noted . Not Available [facility] ([facility]) [address] [facility], [place], [address], 05/11/2019 07:09:39 05/07/19 20 05/07/2019 urina lysis [...] 05/07/2019 urina lysis , dipst ick Specific Alton[place] 1.030 Not Available In-Off ice Order Internal Use Only DO Not Attach Compendium DO Not Attach Compendium, Do Not Delete/merge, [id number] 05/07/2019 12:47:08 05/07/19 20 05/07/2019 urina lysis , dipst ick Ketone Negati ve Not Available In-Office Order Internal Use Only DO Not Attach Compendium DO Not Attach Compendium, Do Not Delete/merge, [id number] 05/07/2019 12:47:08 05/07/19 20 05/07/2019 urina lysis , dipst ick Bilirubin Negati ve Not Available In-Office Order Internal Use Only DO Not Attach Compendium DO Not Attach Compendium, Do Not Delete/merge, [id number] 05/07/2019 12:47:08 05/07/19 20 05/07/2019 urina lysis , dipst ick Glucose Negati ve Not Available In-Office Order Internal Use Only DO Not Attach Compendium DO Not Attach Compendium, Do Not Delete/merge, [id number] 05/07/2019 12:47:08 08/06/19 21 08/07/2020 bacte rial vagin osis panel , vagin al trich vag by KATHE NEGATI VE negati ve Not Available [facility] ([facility]) [address] [place], [address], 08/08/2020 14:11:23 08/06/19 21 08/07/2020 bacte rial vagin osis panel , vagin al chlamydia trachomatis, KATHE NEGATI VE negati ve Not Available [facility] ([facility]) [address] [place], [address], 08/08/2020 14:11:23 08/06/19 21 08/07/2020 bacte rial vagin osis panel , vagin al neisseria gonorrhoeae, KATHE NEGATI VE negati ve Not Available [facility] ([facility]) [address] [place], [address], 08/08/2020 14:11:23 08/06/19 21 08/08/2020 bacte rial vagin osis panel , vagin al atopobium vaginae MODERA TE - 1 score Not Available [facility] ([facility]) [address] [facility], [place], [address], 08/08/2020 14:11:23 08/06/19 21 08/08/2020 bacte rial vagin osis panel , vagin al bvab 2 LOW - 0 score Not Available [facility] ([facility]) [address] [place], [address], 08/08/2020 14:11:23 08/06/19 21 08/08/2020 bacte rial [...] Drug Admin istra tion. Not Available [facility] ([facility]) [address] [facility], [place], [address], 08/08/2020 14:11:23 08/06/19 21 08/08/2020 bacte rial vagin osis panel , vagin al kelvin albicans, KATHE NEGATI VE negati ve Not Available [facility] ([facility]) [address] [facility], [place], [address], 08/08/2020 14:11:23 08/06/19 21 08/08/2020 bacte rial vagin osis panel , vagin al kelvin glabrata, KATHE NEGATI VE negati ve Not Available [facility] ([facility]) [address] [place], [address], 08/08/2020 14:11:23 08/06/19 21 08/08/2020 bacte rial vagin osis panel , vagin al hsv 1 KATHE NEGATI VE negati ve Not Available [facility] ([facility]) [address] [place], [address], 08/08/2020 14:11:23 08/06/19 21 08/08/2020 bacte rial vagin osis panel , vagin al hsv 2 KATHE NEGATI VE negati ve Not Available [facility] ([facility]) [address] [place], [address], 08/08/2020 14:11:23 08/06/19 21 08/06/2020 cultu re, urine urine culture, routine FINAL REPORT Not Available [facility] ([facility]) [address] [place], [address], 08/08/2020 14:11:24 08/06/19 21 08/06/2020 cultu re, urine result 1 COMMEN T Mixed uroge nital heidy 50,00 0-100 ,000 colon y formi ng units per mL Not Available [facility] ([facility]) [address] [place], [address], 08/08/2020 14:11:24 08/21/19 21 08/23/2020 bacte rial vagin osis panel , vagin al trich vag by KATHE NEGATI VE negati ve Not Available [facility] ([facility]) [address] [place], [address], 08/28/2020 07:11:09 08/21/19 21 08/23/2020 bacte rial vagin osis panel , vagin al chlamydia trachomatis, KATHE NEGATI VE negati ve Not Available [facility] ([facility]) [address] [place], [address], 08/28/2020 07:11:09 08/21/19 21 08/23/2020 bacte rial vagin osis panel , vagin al neisseria gonorrhoeae, KATHE NEGATI VE negati ve Not Available [facility] ([facility]) [address] [facility], [place], [address], 08/28/2020 07:11:09 08/21/19 21 08/25/2020 bacte rial vagin osis panel , vagin al atopobium vaginae HIGH - 2 score abnormal Not Available [facility] ([facility]) [address] [place], [address], 08/28/2020 07:11:09 08/21/19 21 08/25/2020 bacte rial vagin osis panel , vagin al bvab 2 LOW - 0 score Not Available [facility] ([facility]) [address] [facility], [place], [address], 08/28/2020 07:11:09 08/21/19 21 08/25/2020 bacte rial [...] e pratibha cteri stics deter mined by [facility]. It has not been clear ed or appro namita by the Food and Drug Admin istra tion. Not Available [facility] ([facility]) [address] [place], [address], 08/28/2020 07:11:09 08/21/19 21 08/25/2020 bacte rial vagin osis panel , vagin al kelvin albicans, KATHE NEGATI VE negati ve Not Available [facility] ([facility]) [address] [place], [address], 08/28/2020 07:11:09 08/21/19 21 08/25/2020 bacte rial vagin osis panel , vagin al kelvin glabrata, KATHE NEGATI VE negati ve Not Available [facility] ([facility]) [address] [place], [address], 08/28/2020 07:11:09 08/21/19 21 08/28/2020 bacte rial vagin osis panel , vagin al hsv 1 KATHE NEGATI VE negati ve Not Available [facility] ([facility]) [address] [place], [address], 08/28/2020 07:11:09 08/21/19 21 08/28/2020 bacte rial vagin osis panel , vagin al hsv 2 KATHE NEGATI VE negati ve Not Available [facility] ([facility]) [address] [place], [address], 08/28/2020 07:11:09 08/21/19 21 08/22/2020 cultu re, [...] n is noted . Not Available [facility] ([facility]) [address] [facility], [place], [address], 08/28/2020 07:11:10 02/14/20 21 02/14/2021 URINE CULTU RE, CARMENI NE urine culture, routine FINAL REPORT Not Available [facility] ([facility]) [address] [facility], [place], [address], 02/15/2021 03:06:09 02/14/20 21 02/14/2021 URINE CULTU RE, CARMENI NE result 1 COMMEN T Mixed uroge nital heidy Less than 10,00 0 colon ies/m L Not Available [facility] ([facility]) [address] [place], [address], 02/15/2021 03:06:09 02/14/20 21 02/13/2021 urina lysis , dipst ick Leukocytes Trace Not Available In-Offi ce Order Internal Use Only DO Not Attach Compendium DO Not Attach Compendium, Do Not Delete/merge, [id number] 02/13/2021 11:06:21 02/14/20 21 02/13/2021 urina lysis , dipst ick Nitrite negati ve Not Available In-Office Order Internal Use Only DO Not Attach Compendium DO Not Attach Compendium, Do Not Delete/merge, [id number] 02/13/2021 11:06:21 02/14/20 21 02/13/2021 urina lysis , dipst ick Urobilinogen .2 Not Available In-Of fice Order Internal Use Only DO Not Attach Compendium DO Not Attach Compendium, Do Not Delete/merge, [id number] 02/13/2021 11:06:21 02/14/20 21 02/13/2021 urina lysis , dipst ick Protein Negati ve Not Available In-Office Order Internal Use Only DO Not Attach Compendium DO Not Attach Compendium, Do Not Delete/merge, [id number] 02/13/2021 11:06:21 02/14/20 21 02/13/2021 urina lysis , dipst ick pH 5.5 Not Available In-Office Order Internal Use Only DO Not Attach Compendium DO Not Attach Compendium, Do Not Delete/merge, [id number] 02/13/2021 11:06:21 02/14/20 21 02/13/2021 urina lysis , dipst ick Blood Non-He molyze d: Trace Not Available In-Office Order Internal Use Only DO Not Attach Compendium DO Not Attach Compendium, Do Not Delete/merge, [id number] 02/13/2021 11:06:21 02/14/20 21 02/13/2021 urina lysis , dipst ick Specific [place] 1.030 Not Available In-Off ice Order Internal Use Only DO Not Attach Compendium DO Not Attach Compendium, Do Not Delete/merge, [id number] 02/13/2021 11:06:21 02/14/20 21 02/13/2021 urina lysis , dipst ick Ketone Negati ve Not Available In-Office Order Internal Use Only DO Not Attach Compendium DO Not Attach Compendium, Do Not Delete/merge, [id number] 02/13/2021 11:06:21 02/14/20 21 02/13/2021 urina lysis , dipst ick Bilirubin Small Not Available In-Offic e Order Internal Use Only DO Not Attach Compendium DO Not Attach Compendium, Do Not Delete/merge, [id number] 02/13/2021 11:06:21 02/14/20 21 02/13/2021 urina lysis , dipst ick Glucose Negati ve Not Available In-Office Order Internal Use Only DO Not Attach Compendium DO Not Attach Compendium, Do Not Delete/merge, [id number] 02/13/2021 11:06:21 02/14/20 21 02/13/2021 urina lysis , dipst ick Appearance Cloudy Not Available In-Offi ce Order Internal Use Only DO Not Attach Compendium DO Not Attach Compendium, Do Not Delete/merge, [id number] 02/13/2021 11:06:21 02/14/20 21 02/13/2021 urina lysis , dipst ick Color [place] Not Available In-Office Order Internal Use Only DO Not Attach Compendium DO Not Attach Compendium, Do Not Delete/merge, [id number] 02/13/2021 11:06:21 04/07/19 22 04/08/2021 URINE CULTU RE, ROUTI NE urine culture, routine Final report Not Available [facility] ([facility]) [address] [place], [address], 04/09/2021 03:07:47 04/07/19 22 04/08/2021 URINE CULTU RE, ROUTI NE result 1 Commen t Mixed uroge nital heidy 25,00 0-50, 000 colon y formi ng units per mL Not Available [facility] ([facility]) [address] [place], [address], 04/09/2021 03:07:47 04/07/19 22 04/07/2021 urina lysis , dipst ick Leukocytes Small Not Available In-Offi ce Order Internal Use Only DO Not Attach Compendium DO Not Attach Compendium, Do Not Delete/merge, [id number] 04/07/2021 09:32:49 04/07/19 22 04/07/2021 urina lysis , dipst ick Nitrite negati ve Not Available In-Office Order Internal Use Only DO Not Attach Compendium DO Not Attach Compendium, Do Not Delete/merge, [id number] 04/07/2021 09:32:49 04/07/19 22 04/07/2021 urina lysis [...] 04/07/2021 urina lysis , dipst ick Specific [place] 1.025 Not Available In-Off ice Order Internal [...] contr ast No observ ation record ed. [facility] ([facility]) [address] [place], [address], 10/23/2019 13:27:35 06/07/19 21 06/05/2020 CT, abdom en + pelvi s, w/o contr ast No observ ation record ed. [facility] [address] [place], [address], 08/20/2020 09:58:51 10/29/19 21 10/27/2020 XR, foot, 2 view No observ ation record ed. [address] ([facility]) [address] [place], [address], 04/07/2021 09:40:41 04/07/19 22 03/02/2021 CT, abdom en + pelvi s, w/o contr ast No observ ation record ed. [facility] [address] [place], [address], 04/07/2021 10:15:29 Result Notes None recorded. Problems Name Problem SNOMED Code Status Onset Date Resolution Date Notes Provider Name and Address Organization Details Recorded Time Female sterilization Active 2019 Not Available [facility] 2 02:49:41 Smoker 34088735 Active 2019 Not Available [facility] 2 02:49:41 Deliveries by [id number] Active 2019 Not Available [facility] 2 02:49:41 Bacterial vaginosis 194484609 Active 2020 Not Available [facility] 2 02:49:41 Problem Notes None recorded. Procedures Surgical History Date Name Laterality Status Provider Name and Address Organization Details Recorded Time 03/25/19 22 procedure on umbilicus completed Anushka Claire MA [facility] 04/07/2021 09:18:08 05/09/19 18 Date of Last Pap Smear completed Cheikh Banuelos [place] [facility] 07/18/2018 14:40:29 03/14/18 86 Tonsillectomy completed Aundrea Leonard [place] [facility] 05/09/2017 15:27:18 03/24/18 80 Caesarean Section completed Aundrea Leonard MA [facility] 05/09/2017 15:27:34 ligation of bilateral fallopian tubes completed Farshad Samayoa [place] [facility] 05/29/2018 11:34:42 Appendectomy completed Anushka Claire MA [facility] 08/05/2020 16:45:52 Imaging Results Imaging Date Name Status LastModified by Organiz ation Details LastModified Time 10/16/2019 CT, abdomen + pelvis, w/o contrast completed [facility] [address] [place], [address], 10/23/2019 13:27:35 06/05/2020 CT, abdomen + pelvis, w/o contrast completed [facility] [address] [place], [address], 08/20/2020 09:58:51 10/27/2020 XR, foot, 2 view completed [address] ([facility]) [address] [place], [address], 04/07/2021 09:40:41 03/02/2021 CT, abdomen + pelvis, w/o contrast completed [facility] [address] [place], [address], 04/07/2021 10:15:29 Procedure Notes None recorded. Medical Equipment None Reported. Allergies Allergen ID Allergen Name Allergen Category Reaction Reaction Severity Criticality Documentation Date Start Date Code Code System Note Provider Name and Address Organization Details Recorded Time 42505 codeine medicatio n Not available Not available Not available 09/26/2014 4238 RxNorm Farshad Samayoa MA null, [facility] 5 14:25:03 Medications Name Sig Start Date Stop Date [...] completed Not Available Not Available Not Available Minh Maintenan ce Pack 4 mcg vaginal insert [...] 102 mm[Hg] 76 mm[Hg] Yodit Mauricio MA [facility] 05/07/2019 12:52:47 Date Recorded Body mass index (BMI) Body weight Provider Name and Address Organization Details Last Updated DateTime 05/07/2019 56 kg/m2 289029.15 g Rose Hernandez MA [facility] 05/07/2019 12:45:22 Date Recorded Body height Body mass index (BMI) Body weight Provider Name and Address Organization Details Last Updated DateTime 10/23/2019 161.29 cm 56.3 kg/m2 455099.34 g Rose Hernandez MA [facility] 10/23/2019 12:37:15 Date Recorded Body height Body mass index (BMI) Body weight Systolic blood pressure Diastolic blood pressure Provider Name and Address Organization Details Last Updated DateTime 08/05/2020 161.29 cm 55.8 kg/m2 338231.5 6 g 120 mm[Hg] 80 mm[Hg] Anushka Claire MA [facility] 16:48:59 Date Recorded Body height Body mass index (BMI) Body weight Systolic blood pressure Diastolic blood pressure Provider Name and Address Organization Details Last Updated DateTime 08/20/2020 161.29 cm 55.6 kg/m2 367622.9 7 g 118 mm[Hg] 74 mm[Hg] Margareth Posada MA [facility] 1 10:01:54 Date Recorded Body height Body mass index (BMI) Body weight Systolic blood pressure Diastolic blood pressure Provider Name and Address Organization Details Last Updated DateTime 04/07/2021 161.29 cm 56.1 kg/m2 543458.7 4 g 128 mm[Hg] 76 mm[Hg] Anushka Claire MA [facility] 2 09:20:13 Social History Question Answer Notes LastModified by Organizat ion Details LastModified Time Tobacco Smoking Status Current Every Day Smoker cigarettes Farshad Samayoa MA null, [facility] 09/26/2014 14:25:03 Do You Have An Advance [...] t available 05/09/2017 What Is Your Occupation? [employer] Fe[employer] Information not available 05/09/2017 Hard Of Hearing [...] High Blood Pressure N Breast Cancer N Kidney or Bladder Problems N Thyroid Problems N GI Problems N Lung Disease N Depression N Blood Clots N Acne N Breast Problem N Eating Disorder N Anemia N Anesthesia Complications N Headaches/Migraines N Anxiety Disorder N Ovarian Cancer N Diabetes N Muscle, Joint, or Bone Problems N [...] SNOMED-CT Code Diagnosis ICD10 Code Diagnosis Note [id number] Roseanna Peña MD [facility] (Adult Med) [address] [place] [phone] 09/26/2014 13:59:45 09/26/2014 14:55:25 Adult health examination [id number] Roseanna Peña MD [facility] ([facility]ult [facility]) [address] [place] [address] [phone] 09/27/2014 12:20:47 09/27/2014 14:38:07 Tuberculosis screening [id number] Aureliano Danielle MD [facility] ([employer]IC PUBL[facility]ER) [address] [place] [phone] 05/09/2017 14:39:29 05/09/2017 16:48:53 Gynecologic examination 66484206 Z01.419 Obesity 965420441 E66.9 Female sterilization 608 00951 Z30.2 Deliveries by [id number] O82 Abnormal u terine bleeding 0244295876 9100 N93.9 Candidiasis of skin 4988 3006 B37.2 [facility] nning surveillance 290209119 Z30.09 Exposure t o sexually transmissible disorder 824684125 Z20.2 [id number] MD Amna Purdy (Adult Med) [address] [place] [address] [phone] 05/29/2018 10:38:39 06/09/2018 15:59:43 [id number] MD Amna Otoole ([employer]IC PUBLISHER) [address] [place] [address] [id number] 07/19/2018 14:16:20 07/19/2018 17:13:15 Candidiasis of vagina 43003253 B37.3 Folliculitis 81562542 L7 3.9 [facility] nning surveillance 660994942 Z30.09 sterilizat ion Exposure t o sexually transmissible disorder 564713028 Z20.2 [id number] MD Amna Otoole (MUSIC PUBLISHER) [address] [place] [address] [phone] 05/07/2019 12:10:51 05/08/2019 11:20:53 Exposure to sexually transmissible disorder 970288541 Z20.2 Female sterilization 608 95429 Z30.2 Morbid obesity 923377845 Z68.43 Smoker 75516156 F17.200 Deliveries by [id number] [facility] nning surveillance 570440002 Z30.09 sterilizat ion Bacterial vaginosis 4197 29735 N76.0 Candidiasis 44855307 B37 .9 [id number] MD Amna Otoole (MUSIC PUBLISHER) [address] [place] [address] [phone] 10/23/2019 12:35:13 10/24/2019 07:32:41 Candidiasis 87691882 B37.9 Acute urin omari tract infection 992461536 N39.0 Menorrhagia 269197400 N9 2.0 [id number] SAUMYA PEREZ (MUSIC PUBLISHER) [address] [place] [address] [phone] 08/05/2020 16:17:28 08/09/2020 18:48:12 Dysuria 48162543 R30.9 UA unremarkab le, will send for culture given patients symptoms. Advised increased water intake (pt states she never drinks water). Acute vaginitis 09638412 N76.0 PE unremarkab le. Sample collected. Will treat pending results. Use mild, unscented soaps or plain water when washing, avoid any products with fragrance. Wear cotton underwear and loose fitting clothing. Wash only once per day, do not overscrub or douche. [id number] MD Amna Otoole (MUSIC PUBLISHER) [address] [place] [address] [phone] 0 08/20/2020 09:40:23 08/25/2020 06:49:15 Smoker 40806674 F17.200 Female sterilization 608 09854 Z30.2 Vulvitis 59045976 N76.2 Atrophic vaginitis 25562 000 N95.2 Exposure t o sexually transmissible disorder 020488353 Z20.2 [id number] SAUMYA PEREZ (MUSIC PUBLISHER) [address] [place] [address] [phone] 0 04/07/2021 08:46:46 04/09/2021 07:41:37 Cystocele 567360269 N81.10 Possible Grade 1 cystocele, no increased bulging with bearing down. Discussed kegel/pelv ic floor exercises to help with symptoms and to avoid any heavy lifting/sq uatting. Talked with pt and she is aware weight loss could be beneficial . Referral to urogyn for further eval and management . Recurrent urinary tract infection 886378548 N39.0 Pt treated for recurrent UTIs and has chronic irritative voiding symptoms. UA unremarkab le today but will send for culture. Referred to urologist. Menorrhagia 724975789 N9 2.0 Pt says post tubal ligation she got very painful cramping and HMB so norethindr one was started which has alleviated her symptoms. Renewed today. Morbid obesity 458572664 E66.01 BMI 56.1. Discussed healthy diet (including [...] Crook Member ID Guarantor Name 05/07/2019 1 [facility] - OPEN ACCESS III (PPO) [id number] Mandi Dexheimer [id number] Mandi Dexheimer 10/23/2019 1 [facility] - OPEN ACCESS III (PPO) [id number] Mandi Dexheimer [id number] Mandi Dexheimer 08/05/2020 1 [facility] - OPEN ACCESS III (PPO) [id number] Mandi Dexheimer [id number] Mandi Dexheimer 08/20/[address] [facility] - [facility] OPERATOR [facility] - OPEN ACCESS III (PPO) [id number] Mandi Dexheimer [id number] Mandi Dexheimer 04/07/2021 1 [facility] - OPEN ACCESS III (PPO) [id number] Mandi Dexheimer [id number] Mandi Dexheimer Notes Date Note Type Note [...] typing 39 yo F, , presents for CROW garcia [facility] 05/07/2019 18:24:56 10/23/2019 text/html Recurrent UTIRep orted bypatient.Associated Symptoms:no incontinence; no nocturia; no hematuria; no incomplete emptying; no flank pain; no back pain; no kidney stones;frequency;urgen cy;dysuria 39 yo F, , presents for dysuria frequency, seen in the ER given macrobid side effect nausea, patient stopped med Aureliano GEORGES Dumont [facility] 10/23/2019 13:29:49 08/05/2020 text/html 40 yo who [...] topical preparations. SAUMYA PEREZ Attn: Accounting,[address] [place], [address], [facility] [place] 08/13/2020 17:32:43 08/20/2020 text/html Recurrent UTIRep orted [...] She reports difficulty using topical preparations. Aureliano GEORGES Dumont [facility] 08/20/2020 16:17:56 04/07/2021 text/html Annual GYNReport [...] vaginal irritation/pruritis. SAUMYA PEREZ Attn: Accounting[address] [place], [address], [facility] 04/08/2021 10:19:39 OBGyn Episode Ob Episode Information Episode Created Date Number of Fetuses Patient Bloodtype Patient rh Status Prepregnancy Weight lbs Domestic Partner Domestic Partner Phone Father Name Director Of Clinical Services Status 05/09/19 18 1 CLOSED Fetus Data First Name Last Name Admitted to NICU Weight (g) Sex Living Outcome Pediatric Complications Fetus ID Race Codes Race Delivery Type 3175.14 4 Full Term [id number] Gera Calculation Initial Gera Date Initial Exam [...]
--- NOTE | 2024-07-13 07:55 | ECG_ITS ---
Test Date: 2024-07-13 08:11:33 Measurements Intervals [place] Rate: 75 P: 18 AK: 153 QRS: 76 QRSD: 96 T: 52 QT: 399 QTc: 446 Interpretive Statements SINUS RHYTHM LOW QRS VOLTAGE IN PRECORDIAL LEADS [QRS DEFLECTION < 1.0 mV IN CHEST LEADS] POSSIBLE ANTERIOR MYOCARDIAL INFARCTION [30 ms Q WAVE IN V3/V4, OR R < 0.2 mV IN V4], PROBABLY OLD No previous ECG available for comparison Electronically Signed On 07-13-2024 19:08:50 CDT by Gucci Acrhuleta
== END 2024-07-13 07:45 | disposition home or self-care (01) ==
LOC: ANHSURGERY 07:49
PROVIDERS: PCP Internal Medicine; Visit Provider Surgery
DX: R94.31 Abnormal electrocardiogram [ECG] [EKG] (principal); F17.210 Nicotine dependence, cigarettes, uncomplicated
CPT/HCPCS: 93005

== ENCOUNTER 2024-07-18 00:53 | Day surgery (SDC) | payer OTHER, SELFPAY ==
[2024-07-11 11:44] VITALS: BMI 47.0
--- NOTE | 2024-07-11 11:52 | PC.NURSE ---
Report to the Outpatient Waiting Room, entrance under the green pavilion located off [facility], at time _1100_ on date _[id number]_. Planned Procedure Time: _1pm_.? Time changes happen often and if your time is changed the preop area will call you the afternoon before. - You and your visitor will be asked to self-screen and do not enter if you have any COVID symptoms. Please call surgeon if you need to reschedule. - A mask is optional within the hospital at this time. Patients may have clear liquids (water, carbonated beverages, clear teas, apple juice) until 3 hours prior to surgery with a maximum of 20 ounces. - No food from midnight until time of surgery and no smoking, or chewing tobacco (or any form of nicotine). No chewing gum, candy or mints. Take only the following medications with a SIP of water on the morning of surgery: __If still taking take antibiotic.___ DO NOT STOP ANY OF YOUR OTHER PRESCRIPTION MEDICATIONS PRIOR TO SURGERY EXCEPT THE FOLLOWING Hold all vitamins and supplements for 3 days per anesthesiologist. Medications to discontinue per physician Date to take last dose Please no make-up, nail swedish, hairspray, perfume, deodorant, or body powder the day of surgery.? No jewelry (including any body piercings) or valuables the day of surgery, leave them at home.? Please take a shower or bath the night before, or the morning of, surgery with an antibacterial soap.? Wear comfortable, loose fitting clothing. - Jewelry must be removed prior to entering the operating room.? Rings and piercings that are not removed may be cut off. - The hospital will not accept responsibility for valuables.? - Please leave all valuables, including medications, at home the day of surgery. If you are going home after surgery, a licensed pick up driver must drive you home.? - NO public transportation without another adult if you receive anesthesia. - We recommend that an adult stay with you for 24 hours following discharge. - We also recommend that you do not drive, make important decision, drink alcoholic beverages, or take any drugs that were not prescribed by your health care provider for at least 24 hours after your discharge time. Follow any additional instructions given to you from your surgeon. Telephone instructions given to __Bobbie__and asked if any additional questions and then verbalized understanding. Patient advised to call surgeon office or pre surgery nurse liaison [phone] if any additional questions.
[2024-07-18] VITALS (7 sets, daily range): BP systolic 108–133; BP diastolic 58–78; PULSE 61–80; RESP 15–22; TEMP 36.1–36.3; O2SAT 93–100
--- OUTSIDE RECORDS SUMMARY | 2024-07-18 00:56 | XMS_ITS | Data Portability ---
Author Organization [facility] KATIUSKAErick Address [address] [place] [address] Care Team Providers Care Block Chopper Hand Name Role Phone LESLEY SOLIS Bowling Ball Patcher Assessment Encounter Date Assessment Date Assessment LastModified [...] DO Not Attach Compendium, Do Not Delete/merge, 80129 2 09:59:27 culture, urine 2021 022 B[facility]I [facility] (Centralized Electronic Ordering - All Locations), Patient Can Go To The Location Of Their Choice, [address] 03:07:47 urinalysi s, dipstick 2020 021 [email or web address] In-Office Order, Internal Use Only DO Not Attach Compendium DO Not Attach Compendium, Do Not Delete/merge, [id number] 10:23:08 bacterial vaginosis panel, vaginal 2020 021 [facility] (Centralized Electronic Ordering - All Locations), Patient Can Go To The Location Of Their Choice, [address] 1 07:11:09 culture, vaginal/r ectal, streptoco ccus group B 2020 021 [facility] (Centralized Electronic Ordering - All Locations), Patient Can Go To The Location Of Their Choice, [address] 1 07:11:10 urinalysi s, dipstick 2020 021 [email or web address] 1 In-Office Order, Internal Use Only DO Not Attach Compendium DO Not Attach Compendium, Do Not Delete/merge, [id number] 1 17:07:34 culture, urine 2020 021 BISI [...] Go To The Location Of Their Choice, [address] 0 07:09:39 culture, vaginal/r ectal, streptoco ccus group B 2019 020 [facility] (Centralized Electronic Ordering - All Locations), Patient Can Go To The Location Of Their Choice, [address] 0 07:09:39 urinalysi s, dipstick 2019 020 [email or web address] In-Office Order, Internal Use Only DO Not Attach Compendium DO Not Attach Compendium, Do Not Delete/merge, [id number] 0 14:18:37 Referral urologist referral 2021 022 BISI Wahl MD, [address] [facility] [address], [place], [address], 14:32:39 urogyneco logist referral 2021 [email or web address] [facility] , [address] [facility], [place], [address], 10:10:28 Procedures None recorded. Surgeries None recorded. Imaging None recorded. Medication Orders norethind kamari acetate 5 mg tablet 2021 [facility] #[id number], [address], [place], [id number], 10:00:53 Imvechristopher Abreuan ce Pack 4 mcg vaginal insert 2020 [facility], [address] [place] [address], [address], 09:20:20 Flora s Butt Paste 16 % topical ointment 2020 [facility] #96030, [address], [place], [id number], 09:20:17 Bactrim DS 800 mg-160 mg tablet 2019 [facility] #58953, [address], [place], [id number], 16:43:12 nystatin 100,000 unit/gram topical ointment 2019 [facility] #28257, [address], [place], [id number], 16:42:52 norethind kamari acetate 5 mg tablet 2019 [facility] #[id number], [place], [id number], 0 12:43:28 nystatin 100,000 unit/gram topical ointment 2019 020 [facility] [address], [address] [place], [address], 16:42:52 metronida zole 500 mg tablet 2019 020 [facility] [address], [address] [place], [address], 1 16:42:17 Patient TargetsNo targets recorded. Patient Instructions Encounter Date Encounter Id Patient Instructions Last Modified By Organization Details Last Modified Time 05/07/2019 [id number] candidiasis: care instructions [email or web address] Not available 05/07/2019 13:42:24 bacterial vaginosis: care instructions mwasserman Not available 05/07/2019 13:41:26 When You Want to Lose Weight: Care Instructions [email or web address] Not available 05/07/2019 13:41:26 10/23/2019 [id number] heavy menstrual periods: care instructions mwasserman Not available 10/23/2019 12:43:21 08/20/2020 [id number] atrophic vaginitis: care instructions mwasserman Not available 08/20/2020 10:33:27 04/07/2021 [id number] A healthy lifestyle: care instructions [email or web address] Not available 04/07/2021 10:01:31 Reason for Referral Urogynecologist Referral for Cystocele possible Grade 1 cystocele, pelvic floor physical therapy Referring Physician: Lesley Solis, [employer] Protection Maintainer, Encounter Date: 04/07/2021 Urologist Referral for Recur [...] DO Not Attach Compendium, Do Not Delete/merge, [id number] 08/20/2020 10:02:08 08/21/19 21 08/20/2020 urina lysis [...] DO Not Attach Compendium, Do Not Delete/merge, [id number] 08/20/2020 10:02:08 08/21/19 21 08/20/2020 urina lysis [...] 08/05/2020 urina lysis , dipst ick Specific Butler 1.030 Not Available In-Off ice Order Internal Use Only DO Not Attach Compendium DO Not Attach Compendium, Do Not Delete/merge, [id number] 08/05/2020 16:46:23 08/06/19 21 08/05/2020 urina lysis , dipst ick Ketone Trace Not Available In-Office Order Internal Use Only DO Not Attach Compendium DO Not Attach Compendium, Do Not Delete/merge, [id number] 08/05/2020 16:46:23 08/06/19 21 08/05/2020 urina lysis , dipst ick Bilirubin Small Not Available In-Offic e Order Internal Use Only DO Not Attach Compendium DO Not Attach Compendium, Do Not Delete/merge, [id number] 08/05/2020 16:46:23 08/06/19 21 08/05/2020 urina lysis , dipst ick Glucose Negati ve Not Available In-Office Order Internal Use Only DO Not Attach Compendium DO Not Attach Compendium, Do Not Delete/merge, 08/05/2020 16:46:23 05/07/19 20 05/09/2019 bacte rial vagin osis panel , vagin al hsv 1 KATHE NEGATI VE negati ve Not Available [facility] ([facility]) [address] [place], [address], 05/11/2019 07:09:39 05/07/19 20 05/09/2019 bacte rial vagin osis panel , vagin al hsv 2 KATHE NEGATI VE negati ve Not Available [facility] ([facility]) [address] [place], [address], 05/11/2019 07:09:39 05/07/19 20 05/10/2019 bacte rial vagin osis panel , vagin al trich vag by KATHE NEGATI VE negati ve Not Available [facility] ([facility]) [address] [place], [address], 05/11/2019 07:09:39 05/07/19 20 05/10/2019 bacte rial vagin osis panel , vagin al chlamydia trachomatis, KATHE NEGATI VE negati ve Not Available [facility] ([facility]) [address] [facility], [place], [address], 05/11/2019 07:09:39 05/07/1905/10/2019 bacte rial vagin osis panel , vagin al neisseria gonorrhoeae, KATHE NEGATI VE negati ve Not Available [facility] ([facility]) [address] [place], [address], 05/11/2019 07:09:39 05/07/19 20 05/11/2019 bacte rial vagin osis panel , vagin al atopobium vaginae LOW - 0 score Not Available [facility] ([facility]) [address] [place], [address], 05/11/2019 07:09:39 05/07/19 20 05/11/2019 bacte rial vagin osis panel , vagin al bvab 2 LOW - 0 score Not Available [facility] ([facility]) [address] [place], [address], 05/11/2019 07:09:39 05/07/1905/11/2019 bacte rial vagin osis [...] is not neces daljit. Not Available [facility] ([facility]) [address] [facility], [place], [address], 05/11/2019 07:09:39 05/07/19 20 05/11/2019 bacte rial vagin osis panel , vagin al kelvin albicans, KATHE NEGATI VE negati ve Not Available [facility] ([facility]) [address] [facility], [place], [address], 05/11/2019 07:09:39 05/07/19 20 05/11/2019 bacte rial vagin osis panel , vagin al kelvin glabrata, KATHE NEGATI VE negati ve Not Available [facility] ([facility]) [address] [facility], [place], [address], 05/11/2019 07:09:39 05/07/19 20 05/09/2019 cultu re, [...] n is noted . Not Available [facility] ([facility]) [address] [facility], [place], [address], 05/11/2019 07:09:39 05/07/19 20 05/07/2019 urina lysis [...] 05/07/2019 urina lysis , dipst ick Specific Butler 1.030 Not Available In-Off ice Order Internal Use Only DO Not Attach Compendium DO Not Attach Compendium, Do Not Delete/merge, [id number] 05/07/2019 12:47:08 05/07/19 20 05/07/2019 urina lysis , dipst ick Ketone Negati ve Not Available In-Office Order Internal Use Only DO Not Attach Compendium DO Not Attach Compendium, Do Not Delete/merge, [id number] 05/07/2019 12:47:08 05/07/19 20 05/07/2019 urina lysis , dipst ick Bilirubin Negati ve Not Available In-Office Order Internal Use Only DO Not Attach Compendium DO Not Attach Compendium, Do Not Delete/merge, [id number] 05/07/2019 12:47:08 05/07/19 20 05/07/2019 urina lysis , dipst ick Glucose Negati ve Not Available In-Office Order Internal Use Only DO Not Attach Compendium DO Not Attach Compendium, Do Not Delete/merge, [id number] 05/07/2019 12:47:08 08/06/19 21 08/07/2020 bacte rial vagin osis panel , vagin al trich vag by KATHE NEGATI VE negati ve Not Available [facility] ([facility]) [address] [place], [address], 08/08/2020 14:11:23 08/06/19 21 08/07/2020 bacte rial vagin osis panel , vagin al chlamydia trachomatis, KATHE NEGATI VE negati ve Not Available [facility] ([facility]) [address] [place], [address], 08/08/2020 14:11:23 08/06/19 21 08/07/2020 bacte rial vagin osis panel , vagin al neisseria gonorrhoeae, KATHE NEGATI VE negati ve Not Available [facility] ([facility]) [address] [place], [address], 08/08/2020 14:11:23 08/06/19 21 08/08/2020 bacte rial vagin osis panel , vagin al atopobium vaginae MODERA TE - 1 score Not Available [facility] ([facility]) [address] [facility], [place], [address], 08/08/2020 14:11:23 08/06/19 21 08/08/2020 bacte rial vagin osis panel , vagin al bvab 2 LOW - 0 score Not Available [facility] ([facility]) [address] [place], [address], 08/08/2020 14:11:23 08/06/19 21 08/08/2020 bacte rial [...] Drug Admin istra tion. Not Available [facility] ([facility]) [address] [facility], [place], [address], 08/08/2020 14:11:23 08/06/19 21 08/08/2020 bacte rial vagin osis panel , vagin al kelvin albicans, KATHE NEGATI VE negati ve Not Available [facility] ([facility]) [address] [facility], [place], [address], 08/08/2020 14:11:23 08/06/19 21 08/08/2020 bacte rial vagin osis panel , vagin al kelvin glabrata, KATHE NEGATI VE negati ve Not Available [facility] ([facility]) [address] [place], [address], 08/08/2020 14:11:23 08/06/19 21 08/08/2020 bacte rial vagin osis panel , vagin al hsv 1 KATHE NEGATI VE negati ve Not Available [facility] ([facility]) [address] [place], [address], 08/08/2020 14:11:23 08/06/19 21 08/08/2020 bacte rial vagin osis panel , vagin al hsv 2 KATHE NEGATI VE negati ve Not Available [facility] ([facility]) [address] [place], [address], 08/08/2020 14:11:23 08/06/19 21 08/06/2020 cultu re, urine urine culture, routine FINAL REPORT Not Available [facility] ([facility]) [address] [place], [address], 08/08/2020 14:11:24 08/06/19 21 08/06/2020 cultu re, urine result 1 COMMEN T Mixed uroge nital heidy 50,00 0-100 ,000 colon y formi ng units per mL Not Available [facility] ([facility]) [address] [place], [address], 08/08/2020 14:11:24 08/21/19 21 08/23/2020 bacte rial vagin osis panel , vagin al trich vag by KATHE NEGATI VE negati ve Not Available [facility] ([facility]) [address] [place], [address], 08/28/2020 07:11:09 08/21/19 21 08/23/2020 bacte rial vagin osis panel , vagin al chlamydia trachomatis, KATHE NEGATI VE negati ve Not Available [facility] ([facility]) [address] [place], [address], 08/28/2020 07:11:09 08/21/19 21 08/23/2020 bacte rial vagin osis panel , vagin al neisseria gonorrhoeae, KATHE NEGATI VE negati ve Not Available [facility] ([facility]) [address] [facility], [place], [address], 08/28/2020 07:11:09 08/21/19 21 08/25/2020 bacte rial vagin osis panel , vagin al atopobium vaginae HIGH - 2 score abnormal Not Available [facility] ([facility]) [address] [place], [address], 08/28/2020 07:11:09 08/21/19 21 08/25/2020 bacte rial vagin osis panel , vagin al bvab 2 LOW - 0 score Not Available [facility] ([facility]) [address] [facility], [place], [address], 08/28/2020 07:11:09 08/21/19 21 08/25/2020 bacte rial [...] e pratibha cteri stics deter mined by [employer]. It has not been clear ed or appro namita by the Food and Drug Admin istra tion. Not Available [facility] ([facility]) [address] [place], [address], 08/28/2020 07:11:09 08/21/19 21 08/25/2020 bacte rial vagin osis panel , vagin al kelvin albicans, KATHE NEGATI VE negati ve Not Available [facility] ([facility]) [address] [place], [address], 08/28/2020 07:11:09 08/21/19 21 08/25/2020 bacte rial vagin osis panel , vagin al kelvin glabrata, KATHE NEGATI VE negati ve Not Available [facility] ([facility]) [address] [place], [address], 08/28/2020 07:11:09 08/21/19 21 08/28/2020 bacte rial vagin osis panel , vagin al hsv 1 KATHE NEGATI VE negati ve Not Available [facility] ([facility]) [address] [place], [address], 08/28/2020 07:11:09 08/21/19 21 08/28/2020 bacte rial vagin osis panel , vagin al hsv 2 KATHE NEGATI VE negati ve Not Available [facility] ([facility]) [address] [place], [address], 08/28/2020 07:11:09 08/21/19 21 08/22/2020 cultu re, [...] n is noted . Not Available [facility] ([facility]) [address] [facility], [place], [address], 08/28/2020 07:11:10 02/14/20 21 02/14/2021 URINE CULTU RE, CARMENI NE urine culture, routine FINAL REPORT Not Available [facility] ([facility]) [address] [facility], [place], [address], 02/15/2021 03:06:09 02/14/20 21 02/14/2021 URINE CULTU RE, CARMENI NE result 1 COMMEN T Mixed uroge nital heidy Less than 10,00 0 colon ies/m L Not Available [facility] ([facility]) [address] [place], [address], 02/15/2021 03:06:09 02/14/20 21 02/13/2021 urina lysis , dipst ick Leukocytes Trace Not Available In-Offi ce Order Internal Use Only DO Not Attach Compendium DO Not Attach Compendium, Do Not Delete/merge, [id number] 02/13/2021 11:06:21 02/14/20 21 02/13/2021 urina lysis , dipst ick Nitrite negati ve Not Available In-Office Order Internal Use Only DO Not Attach Compendium DO Not Attach Compendium, Do Not Delete/merge, [id number] 02/13/2021 11:06:21 02/14/20 21 02/13/2021 urina lysis , dipst ick Urobilinogen .2 Not Available In-Of fice Order Internal Use Only DO Not Attach Compendium DO Not Attach Compendium, Do Not Delete/merge, [id number] 02/13/2021 11:06:21 02/14/20 21 02/13/2021 urina lysis , dipst ick Protein Negati ve Not Available In-Office Order Internal Use Only DO Not Attach Compendium DO Not Attach Compendium, Do Not Delete/merge, [id number] 02/13/2021 11:06:21 02/14/20 21 02/13/2021 urina lysis , dipst ick pH 5.5 Not Available In-Office Order Internal Use Only DO Not Attach Compendium DO Not Attach Compendium, Do Not Delete/merge, [id number] 02/13/2021 11:06:21 02/14/20 21 02/13/2021 urina lysis , dipst ick Blood Non-He molyze d: Trace Not Available In-Office Order Internal Use Only DO Not Attach Compendium DO Not Attach Compendium, Do Not Delete/merge, [id number] 02/13/2021 11:06:21 02/14/20 21 02/13/2021 urina lysis , dipst ick Specific Butler 1.030 Not Available In-Off ice Order Internal Use Only DO Not Attach Compendium DO Not Attach Compendium, Do Not Delete/merge, [id number] 02/13/2021 11:06:21 02/14/20 21 02/13/2021 urina lysis , dipst ick Ketone Negati ve Not Available In-Office Order Internal Use Only DO Not Attach Compendium DO Not Attach Compendium, Do Not Delete/merge, [id number] 02/13/2021 11:06:21 02/14/20 21 02/13/2021 urina lysis , dipst ick Bilirubin Small Not Available In-Offic e Order Internal Use Only DO Not Attach Compendium DO Not Attach Compendium, Do Not Delete/merge, [id number] 02/13/2021 11:06:21 02/14/20 21 02/13/2021 urina lysis , dipst ick Glucose Negati ve Not Available In-Office Order Internal Use Only DO Not Attach Compendium DO Not Attach Compendium, Do Not Delete/merge, [id number] 02/13/2021 11:06:21 02/14/20 21 02/13/2021 urina lysis , dipst ick Appearance Cloudy Not Available In-Offi ce Order Internal Use Only DO Not Attach Compendium DO Not Attach Compendium, Do Not Delete/merge, [id number] 02/13/2021 11:06:21 02/14/20 21 02/13/2021 urina lysis , dipst ick Color [place] Not Available In-Office Order Internal Use Only DO Not Attach Compendium DO Not Attach Compendium, Do Not Delete/merge, [id number] 02/13/2021 11:06:21 04/07/19 22 04/08/2021 URINE CULTU RE, ROUTI NE urine culture, routine Final report Not Available [facility] ([facility]) [address] [place], [address], 04/09/2021 03:07:47 04/07/19 22 04/08/2021 URINE CULTU RE, ROUTI NE result 1 Commen t Mixed uroge nital heidy 25,00 0-50, 000 colon y formi ng units per mL Not Available [facility] ([facility]) [address] [place], [address], 04/09/2021 03:07:47 04/07/19 22 04/07/2021 urina lysis , dipst ick Leukocytes Small Not Available In-Offi ce Order Internal Use Only DO Not Attach Compendium DO Not Attach Compendium, Do Not Delete/merge, [id number] 04/07/2021 09:32:49 04/07/19 22 04/07/2021 urina lysis , dipst ick Nitrite negati ve Not Available In-Office Order Internal Use Only DO Not Attach Compendium DO Not Attach Compendium, Do Not Delete/merge, [id number] 04/07/2021 09:32:49 04/07/19 22 04/07/2021 urina lysis [...] 04/07/2021 urina lysis , dipst ick Specific Butler 1.025 Not Available In-Off ice Order Internal [...] contr ast No observ ation record ed. [facility] ([facility]) [address] [place], [address], 10/23/2019 13:27:35 06/07/19 21 06/05/2020 CT, abdom en + pelvi s, w/o contr ast No observ ation record ed. [facility] [address] [place], [address], 08/20/2020 09:58:51 10/29/19 21 10/27/2020 XR, foot, 2 view No observ ation record ed. [address] ([facility]) [address] [place], [address], 04/07/2021 09:40:41 04/07/19 22 03/02/2021 CT, abdom en + pelvi s, w/o contr ast No observ ation record ed. [facility] [address] [place], [address], 04/07/2021 10:15:29 Result Notes None recorded. Problems Name Problem SNOMED Code Status Onset Date Resolution Date Notes Provider Name and Address Organization Details Recorded Time Female sterilization Active 2019 Not Available [facility] 2 02:49:41 Smoker 54019344 Active 2019 Not Available [facility] 2 02:49:41 Deliveries by [id number] Active 2019 Not Available [facility] 2 02:49:41 Bacterial vaginosis 590026086 Active 2020 Not Available [facility] 2 02:49:41 Problem Notes None recorded. Procedures Surgical History Date Name Laterality Status Provider Name and Address Organization Details Recorded Time 03/25/19 22 procedure on umbilicus completed Anushka Claire MA [facility] 04/07/2021 09:18:08 05/09/19 18 Date of Last Pap Smear completed Cheikh Banuelos [place] [facility] 07/18/2018 14:40:29 03/14/18 86 Tonsillectomy completed Aundrea Leonard [place] [facility] 05/09/2017 15:27:18 03/24/18 80 Caesarean Section completed Aundrea Leonard [place] 05/09/2017 15:27:34 ligation of bilateral fallopian tubes completed Farshad Samayoa [place] 05/29/2018 11:34:42 Appendectomy completed Anushka Claire [place] 08/05/2020 16:45:52 Imaging Results Imaging Date Name Status LastModified by Organiz ation Details LastModified Time 10/16/2019 CT, abdomen + pelvis, w/o contrast completed [facility] ([facility] [address] [place], [address], 10/23/2019 13:27:35 06/05/2020 CT, abdomen + pelvis, w/o contrast completed [facility] [address] [place], [address], 08/20/2020 09:58:51 10/27/2020 XR, foot, [address] ([facility]) [address] [place], [address], 04/07/2021 09:40:41 03/02/2021 CT, abdomen + pelvis, w/o contrast completed [facility] [address] [place], [address], 04/07/2021 10:15:29 Procedure Notes None recorded. Medical Equipment None Reported. Allergies Allergen ID Allergen Name Allergen Category Reaction Reaction Severity Criticality Documentation Date Start Date Code Code System Note Provider Name and Address Organization Details Recorded Time 43972 codeine medicatio n Not available Not available Not available 09/26/2014 3705 RxNorm Farshad Samayoa MA null, [place] - [facility] 5 14:25:03 Medications Name Sig [...] 102 mm[Hg] 76 mm[Hg] Yodit Mauricio MA [facility] 05/07/2019 12:52:47 Date Recorded Body mass index (BMI) Body weight Provider Name and Address Organization Details Last Updated DateTime 05/07/2019 56 kg/m2 585142.15 g Rose Hernandez MA [facility] 05/07/2019 12:45:22 Date Recorded Body height Body mass index (BMI) Body weight Provider Name and Address Organization Details Last Updated DateTime 10/23/2019 161.29 cm 56.3 kg/m2 771758.34 g Rose Hernandez MA [facility] 10/23/2019 12:37:15 Date Recorded Body height Body mass index (BMI) Body weight Systolic blood pressure Diastolic blood pressure Provider Name and Address Organization Details Last Updated DateTime 08/05/2020 161.29 cm 55.8 kg/m2 002904.5 6 g 120 mm[Hg] 80 mm[Hg] Anushka Claire MA [facility] 16:48:59 Date Recorded Body height Body mass index (BMI) Body weight Systolic blood pressure Diastolic blood pressure Provider Name and Address Organization Details Last Updated DateTime 08/20/2020 161.29 cm 55.6 kg/m2 017578.9 7 g 118 mm[Hg] 74 mm[Hg] Margareth Posada MA [facility] 1 10:01:54 Date Recorded Body height Body mass index (BMI) Body weight Systolic blood pressure Diastolic blood pressure Provider Name and Address Organization Details Last Updated DateTime 04/07/2021 161.29 cm 56.1 kg/m2 517779.7 4 g 128 mm[Hg] 76 mm[Hg] Anushka Claire MA [facility] 2 09:20:13 Social History Question Answer Notes LastModified by Organizat ion Details LastModified Time Tobacco Smoking Status Current Every Day Smoker cigarettes Farshad Samayoa MA null, [facility] 09/26/2014 14:25:03 Do You Have An [...] t available 05/09/2017 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 Information not available 05/09/2017 Hard Of Hearing [...] SNOMED-CT Code Diagnosis ICD10 Code Diagnosis Note [id number] Roseanna Peña MD [facility] (Adult Med) [address] [place] [address] [phone] 09/26/2014 13:59:45 09/26/2014 14:55:25 Adult health examination [id number] Roseanna Peña MD [facility] (Adult Med) [address] [place] [address] [phone] 09/27/2014 12:20:47 09/27/2014 14:38:07 Tuberculosis screening [id number] Aureliano Danielle MD [facility] (THERAPEUTIC MASSAGE TECHNICIAN) [address] [place] [address] [phone] 05/09/2017 14:39:29 05/09/2017 16:48:53 Gynecologic examination 48629773 Z01.419 Obesity 318168953 E66.9 Female sterilization 608 66823 Z30.2 Deliveries by [id number] O82 Abnormal u terine bleeding 5854015277 9100 N93.9 Candidiasis of skin 4988 3006 B37.2 [facility] nning surveillance 336839731 Z30.09 Exposure t o sexually transmissible disorder 100486914 Z20.2 [id number] MD [facility]na Purdy (Adult Med) [address] [place] [address] [phone] 05/29/2018 10:38:39 06/09/2018 15:59:43 [id number] MD Amna Otoole (THERAPEUTIC MASSAGE TECHNICIAN) [address] [place] [address] [phone] 07/19/2018 14:16:20 07/19/2018 17:13:15 Candidiasis of vagina 34080331 B37.3 Folliculitis 88455867 L7 3.9 [facility] nning surveillance 553763241 Z30.09 sterilizat ion Exposure t o sexually transmissible disorder 807781145 Z20.2 [id number] MD Amna Otoole (THERAPEUTIC MASSAGE TECHNICIAN) [address] [place] [address] [phone] 05/07/2019 12:10:51 05/08/2019 11:20:53 Exposure to sexually transmissible disorder 943885320 Z20.2 Female sterilization 608 79430 Z30.2 Morbid obesity 187580969 Z68.43 Smoker 41740379 F17.200 Deliveries by [id number] O82 [facility] nning surveillance 879765363 Z30.09 sterilizat ion Bacterial vaginosis 4197 12936 N76.0 Candidiasis 64782238 B37 .9 [id number] MD Amna Otoole (THERAPEUTIC MASSAGE TECHNICIAN) [address] [place] [address] [phone] 10/23/2019 12:35:13 10/24/2019 07:32:41 Candidiasis 29464877 B37.9 Acute urin omari tract infection 741421676 N39.0 Menorrhagia [id number] N9 2.0 [id number] SAUMYA PEREZ (THERAPEUTIC MASSAGE TECHNICIAN) [address] [place] [address] [phone] 08/05/2020 16:17:28 08/09/2020 18:48:12 Dysuria [id number] R30.9 UA unremarkab le, will send for culture given patients symptoms. Advised increased water intake (pt states she never drinks water). Acute vaginitis [id number] N76.0 PE unremarkab le. Sample collected. Will treat pending results. Use mild, unscented soaps or plain water when washing, avoid any products with fragrance. Wear cotton underwear and loose fitting clothing. Wash only once per day, do not overscrub or douche. [id number] MD Amna Otoole (THERAPEUTIC MASSAGE TECHNICIAN) [address] [place] [address] [phone] 08/20/2020 09:40:23 08/25/2020 06:49:15 Smoker [id number] F17.200 Female sterilization 608 05597 Z30.2 Vulvitis 72779092 N76.2 Atrophic vaginitis 76636 000 N95.2 Exposure t o sexually transmissible disorder [id number] Z20.2 [id number] SAUMYA PEREZ (THERAPEUTIC MASSAGE TECHNICIAN) [address] [place] [address] [phone] 04/07/2021 08:46:46 04/09/2021 07:41:37 Cystocele [id number] N81.10 Possible Grade 1 cystocele, no increased bulging with bearing down. Discussed kegel/pelv ic floor exercises to help with symptoms and to avoid any heavy lifting/sq uatting. Talked with pt and she is aware weight loss could be beneficial . Referral to urogyn for further eval and management . Recurrent urinary tract infection [id number] N39.0 Pt treated for recurrent UTIs and has chronic irritative voiding symptoms. UA unremarkab le today but will send for culture. Referred to urologist. Menorrhagia [id number] N9 2.0 Pt says post tubal ligation she got very painful cramping and HMB so norethindr one was started which has alleviated her symptoms. Renewed today. Morbid obesity [id number] E66.01 BMI 56.1. 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 [facility] - OPEN ACCESS III (PPO) [id number] Mandi Dexheimer [id number] Mandi Dexheimer 10/23/2019 1 [facility] CARE & EVAPORATIVE COOLER INSTALLER [facility] - OPEN ACCESS III (PPO) [id number] Mandi Dexheimer [id number] Mandi Dexheimer 08/05/2020 1 [facility] CARE & EVAPORATIVE COOLER INSTALLER [facility] - OPEN ACCESS III (PPO) [id number] Mandi Dexheimer [id number] Mandi Dexheimer 08/20/2020 1 [facility] - HOME CARE & EVAPORATIVE COOLER INSTALLER [facility] - OPEN ACCESS III (PPO) [id number] Mandi Dexheimer [id number] Mandi Dexheimer 04/07/2021 1 [facility] CARE & EVAPORATIVE COOLER INSTALLER [facility] - OPEN ACCESS III (PPO) [id number] Mandi Dexheimer [id number] Mandi Dexheimer Notes Date Note Type Note [...] yo F, , presents for CROW garcia [facility] 05/07/2019 18:24:56 10/23/2019 text/html Recurrent UTIRep orted bypatient.Associated Symptoms:no incontinence; no nocturia; no hematuria; no incomplete emptying; no flank pain; no back pain; no kidney stones;frequency;urgen cy;dysuria 39 yo F, , presents for dysuria frequency, seen in the ER given macrobid side effect nausea, patient stopped med Aureliano GEORGES Dumont [facility] 10/23/2019 13:29:49 08/05/2020 text/html 40 yo who [...] topical preparations. SAUMYA PEREZ Attn: Accounting,[address] [place], [address], [facility] 08/13/2020 17:32:43 08/20/2020 text/html Recurrent UTIRep orted [...] difficulty using topical preparations. Aureliano GEORGES Dumont [facility] 08/20/2020 16:17:56 04/07/2021 text/html Annual GYNReport ed [...] vaginal irritation/pruritis. SAUMYA PEREZ Attn: Accounting[address] [place], [address], [facility] 04/08/2021 10:19:39 OBGyn Episode Ob Episode Information Episode Created Date Number of Fetuses Patient Bloodtype Patient rh Status Prepregnancy Weight lbs Domestic Partner Domestic Partner Phone Father Name Solder Cream Maker Status 05/09/19 18 1 CLOSED Fetus Data First Name Last Name Admitted to NICU Weight (g) Sex Living Outcome Pediatric Complications Fetus ID Race Codes Race Delivery Type 3175.14 4 Full Term [id number] Gera Calculation Initial Gera Date Initial Exam [...]
--- OUTSIDE RECORDS SUMMARY | 2024-07-18 00:56 | XMS_ITS | CONTINUITY OF CARE DOCUMENT ---
Author Name teagan candelaria Address Unknown Organization [facility] Address [address] [place] [address] Phone [phone] Care Team Providers Care Industrial Engineering Intern Name Role Phone teagan candelaria Unavailable Unavailable INSURANCE PROVIDERS Payer name Policy type / Coverage type Laura red constitution party ID [facility] Medicaid 1 [id number]
--- NOTE | 2024-07-18 11:32 | WPDHPUPDATE1 ---
History and Physical Update Update Date/Time: 07/18/24 11:32 - left breast total duct excision, and excisional biopsy of left lateral breast skin lesion History and Physical has been reviewed, including an updated exam of the patient. There are NO changes in the patient's condition. Risks, benefits, and alternatives have been discussed and questions answered. Patient agrees to proceed with procedure.
[2024-07-18] MEDS: LACTATED RINGERS 1,000 ML 30 ML IV CONT (11:50)
[2024-07-18] MEDS: ACETAMINOPHEN 500 MG TABLET 1000 MG PO (11:50)
[2024-07-18 11:56] LABS: BEDSIDEPREGUCG Negative (Negative)
--- NOTE | 2024-07-18 12:08 | P.PNAN_ITS ---
Anes - Initial Pre Proc Eval Procedure: Operation Date: 07/18/24 13:00 Proposed Procedures p Left Breast Total Duct Excision, Excisional Biopsy of Lateral Left Breast Lesion - Candace Bee MD Date/Time: 07/18/24 12:08 Surgeon: Candace Bee MD Pre Op Diagnosis: subareolar left breast abscess Patient Data Age: 44 Gender: F Height: 1.6 m Weight: 120.8 kg Last Vital Signs Temp 97.4 F L 07/18/24 11:52 Pulse 66 07/18/24 11:52 Resp 16 07/18/24 11:52 BP 111/62 07/18/24 11:52 Pulse Ox 95 07/18/24 11:52 O2 Del Method Room Air 07/18/24 11:52 Allergies Allergy/AdvReac Type Severity Reaction Status Date / Time codeine Allergy Intermediate Swelling Verified 07/18/24 11:48 metronidazole Allergy Intermediate Swelling Verified 07/18/24 11:48 Home Medications ?Medication ?Instructions ?Recorded ?Confirmed ?Type progesterone micronized 200 mg 200 mg PO QHS #30 caps 11/24/23 07/11/24 Rx capsule (Prometrium) progesterone micronized 100 mg 100 mg PO QHS #60 caps 05/23/24 07/11/24 Rx capsule amoxicillin 875 mg-potassium 1 tablet PO Q12H #20 tabs 07/10/24 07/11/24 Rx clavulanate 125 mg tablet Laboratory Tests 07/18/24 11:52 POC Urine HCG, Qual Negative (Negative) Patient hx anesthesia problems: post op nausea/vomiting Family hx anesthesia problems: none Results Review: All pre-operative results and documents have been reviewed as part of the pre- operative evaluation. [facility] Past Medical History Medical History Vaginal odor Screening mammogram, encounter for Nipple discharge Bulging disc Arthritis Hernia (03/25/21) umbilical hernia with mesh Breast abscess 2019 lt breast which turned septic Surgical History Surgical History History of hysteroscopy (08/19/22) Hscope D&C / endometrial Ablation History of hysteroscopy (02/18/22) Hscope D&C / polypectomy History of History of tubal ligation History of appendectomy 2020 Family History Family History Grandparent Hypertension Other Cerebrovascular accident maternal aunt Social History Social History (Updated 07/10/24 @ 09:28 by Reshma Ramirez [facility]) Smoking packs per day: 1.5 Smoking cigarettes per day: 30.0 Years smoked: 30 Smoking pack-years: 45.00 Smoking status: Current every day smoker Tobacco type: cigarettes Second hand tobacco smoke exposure: Yes (spouse smokes also) Alcohol intake: current Alcohol use details: 1-2 a year Substance use: current Substance use type: marijuana Other substance usage details: Daily Do You Feel Safe in your Home?: Yes Lack of Transportation: No Lack of Food: Never True Current Housing: I Have Housing Concerned About Future Housing: No Difficulty Paying Gas/Electric Bills: No Difficulty Paying for Meds: No Currently Unemployed: No Education: High School Diploma/GED Difficulty w/ Childcare or Family Care: No Living arrangements: with family Additional living arrangements comments: same sex partner Occupation/Education: occupation 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 Gender identity (if verbalized by the patient): Female Sexual Orientation (if Verbalized by the Patient): Bisexual Spiritual care concerns: No Anes - Eval Final PreProcedure Day of Procedure 07/18/24 12:08 Patient weight: morbidly obese Heart: regular rate and rhythm Lungs: clear to auscultation Airway: Mallampati scale class III Neurological: alert and oriented Last oral intake: >/= 8 hours ASA classification: III Emergent: no Anesthetic plan: proceed Anesthesia type and monitoring: general LMA and standard monitoring Results Review: All pre-operative results and documents have been reviewed as part of the pre- operative evaluation. Informed Consent: The patient's anesthetic plan and its attendant risks and benefits were discussed with the patient/family/POA. Questions were solicited and answers provided to the satisfaction of the patient/family/POA.
[2024-07-18] MEDS: SCOPOLAMINE 1 MG PATCH 1 PATCH TRANSDERM (12:30)
[2024-07-18] MEDS: ceFAZolin 3 GM/D5W 100 ML 100 ML IVPB (12:51)
[2024-07-18] MEDS: LIDOCAINE 1% LOCAL INJ 10 ML VIAL 20 ML INFILTRATE (13:14)
[2024-07-18] MEDS: BUPIVACAINE/EPINEPHRINE 0.5% 50 ML VIAL 20 ML INFILTRATE (13:14)
--- NOTE | 2024-07-18 14:17 | P.OP_ITS ---
Procedure Note - Detailed Date of Procedure 07/18/24 Pre-op Diagnosis Recurrent subareolar left breast abscess Post-op Diagnosis Same Procedure Performed 2. Left total duct excision 3. Excisional biopsy of left lateral breast lesion Surgeon Candace Bee MD Anesthesia General Description of Procedure Patient was identified in the preoperative holding area brought to the operating room suite. She was laid supine in the OR table and sequential compression devices were applied. General endotracheal anesthesia was induced without difficulty. The left chest and breast were prepped and draped in a sterile fashion. Patient already had a previous superior lateral periareolar in incision from a previous I&D and the same incision was made with a 15 blade. Dissection was carried down through the subcutaneous tissue towards the center of the nipple. I was able to identify the central ducts which were completely excised EN bloc and sent to pathology as a permanent specimen. No suspicious masses or lesions were identified in the subareolar region. There is no evidence of active infection. The cavity was irrigated with saline and hemostasis was assured. Interrupted 2 0 Vicryl intraparenchymal sutures were then used to close the central cavity to decrease the risk of nipple retraction. The deep dermal layer was then approximated with interrupted 3-0 Vicryl followed by 4-0 Monocryl in a subcuticular fashion for the skin. Attention was then turned to the skin lesion in the lateral inferior aspect of the left breast. An elliptical incision was made around this lesion and this was completely excised EN bloc down to the dermis. The lesion was then sent to pathology as a permanent specimen. Dermabond was applied to both incisions, followed by a sterile dressing and a surgical bra. Patient was awoken from anesthesia and taken to the recovery in stable condition. All needles, instr uments, sponge counts were correct as reported by the operating room staff. Patient tolerated the procedure well with no immediate complications. Estimated Blood Loss 5 Pathology Yes Complications No immediate complications Condition Stable Disposition PACU [facility] Billing Surgery - Charge Forward: Surgery Billing (CPT 48475 x2 (two separate lesions biopsied through different incisions))
== END 2024-07-18 15:39 | disposition home or self-care (01) ==
PROVIDERS: PCP Internal Medicine; Visit Provider Surgery
PROC: (CPT 19120; principal; 2024-07-18 13:00)
DX: N61.1 Abscess of the breast and nipple (principal); L90.5 Scar conditions and fibrosis of skin; M19.90 Unspecified osteoarthritis, unspecified site; F17.210 Nicotine dependence, cigarettes, uncomplicated; F12.90 Cannabis use, unspecified, uncomplicated; E66.01 Morbid (severe) obesity due to excess calories; Z68.42 Body mass index [BMI] 45.0-49.9, adult; Z98.890 Other specified postprocedural states; Z98.51 Tubal ligation status; Z82.49 Family history of ischemic heart disease and other diseases of the circulatory system
CPT/HCPCS: 19120 ×2; 88305; A9270; J0330; J0690; J1100; J1200; J2003; J2250; J2405; J2704; J3010; J7120; Q9968

== ENCOUNTER 2024-10-22 14:06 | Outpatient (CLI) | payer OTHER, SELFPAY ==
--- NOTE | ~2024-10-22 | US_ITS ---
US breast LT limited 10/22/2024 14:44 Indication: Abscess follow-up Procedure: High-resolution Limited ultrasound of the left breast Comparison: 06/15/2024 Findings: There is a hypoechoic partially cystic mass in the subareolar location of the left breast m easuring 3.5 x 3 x 0.9 cm with marginal vascularity and mixed posterior attenuation. This compares wi th 3.2 x 3.2 x 1.6 cm on prior examination. Impression: 1: No significant interval change allowing for differences of technique 2 complex mixed solid and cys tic structure in the subareolar location of the left breast, consistent with infection. BI-RADS CATEGORY 3-PROBABLY BENIGN FINDING RECOMMENDATION: 3 month follow-up left breast ultrasound recommended. Reviewed, dictated and finalized at location A. Impression: 1: No significant interval change allowing for differences of technique 2 compl ex mixed solid and cystic structure in the subareolar location of the left vernell st, consistent with infection. BI-RADS CATEGORY 3-PROBABLY BENIGN FINDING RECOMMENDATION: 3 month follow-up left breast ultrasound recommended.
--- OUTSIDE RECORDS SUMMARY | 2024-10-22 14:26 | XMS_ITS | Clinical Summary ---
Author Organization [facility] Address [address] [place] [address] Care Team Providers Care Transmitter Chief Name Role Phone Dionicio Asencio MD Primary Care Provider + [phone] Katelin Gonzalez MD Unavailable Source Comments [facility],non-owned Affiliates and Associated Physician Practices is amultiple site organization consisting of ambulatory clinics and hospital sitesin [place], [place], [place] and [place]. This disclosure is being madepursuant to the Care Everywhere program and may not contain all information available regarding this patient. Last updated 17.[facility] Allergies Active Allergy Reactions Criticality Noted Date Comments Codeine Urticaria,Swelling Medium 10/11/2024 Medications * Be aware that medications may not be up to date on this document. Alwaysverify current medications with the patient. Progesterone 100 MG capsule TAKE 1 CAPSULE BY MOUTH EVERY DAY AT BEDTIME 09/24/2024 Active Progesterone 200 MG capsule Take 1 (one) capsule by mouth once daily 09/24/2024 Active Encounters Date Type Department Care Team Description 10/19/2024 Telephone [facility] - COMMUNITY ASSOCIATION MANAGER [address] [place] [id number] Debora Blair MD Release Of Information 10/17/2024 11:00 AM CDT Office Visit [facility] - General Surgery [address] [place] [address] Katelin Gonzalez MD Abdominal adhesions (Primary Dx) 10/11/2024 10:00 AM CDT Office Visit [facility] - COMMUNITY ASSOCIATION MANAGER [address] [place] [address] Debora Blair MD Abnormal uterine bleeding (AUB) (Primary Dx); H/O hernia repair 10/11/2024 Travel 09/03/2024 Travel from Last 3 Months Social History Tobacco Use Types Packs/Day Years Used Date Smoking Tobacco: Every Day Cigarettes Smokeless Tobacco: Never Alcohol Use Standard Drinks/Week Comments Not Currently 0 (1 standard drink = 0.6 oz pur e alcohol) PHQ-2 Answer Date Recorded Patient Health Questionnaire-2 Score 0 10/11/2024 Comments No Sex and Gender Information Value Date Recorded Sex Assigned at Not on file 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 Gender Identity Not on file Sexual Orientation Not on file Last Filed Vital Signs Vital Sign Reading Time Taken Comments Blood Pressure 110/82 10/17/2024 10:59 AM CDT Pulse 70 10/17/2024 10:59 AM CDT Temperature - - Respiratory Rate 18 10/17/2024 10:59 AM CDT Oxygen Saturation 98% 10/17/2024 10:59 AM CDT Inhaled Oxygen Concentration - - Weight 112.5 kg (248 lb) 10/17/2024 10:59 AM CDT Height 160 cm (5' 3) 10/17/2024 10:59 AM CDT Body Mass Index 43.93 10/17/2024 10:59 AM CDT Plan of Treatment Health Maintenance Due Date Last Done Comments COLOGUARD (AGES 45-75) - COL ON CA SCREENING 1979 COLON MONITORING 1979 COLONOSCOPY - COLON CA SCREENING 1979 CT COLONOGRAPHY - COLON CA SCREENING 1979 Colorectal Cancer Screening 1979 FIT - COLON CA SCREENING 1979 FLEX SIG - COLON CA SCREENING 1979 LIPID TESTING 1979 HIV SCREENING 1994 HEPATITIS C SCREENING 03/19/1997 DTAP/TDAP/TD VACCINES (1 - Tdap) 1998 HEPATITIS B VACCINE (1 of 3 - 19+ 3-dose series) 1998 PNEUMOCOCCAL VACCINE (1 of 2 - PCV) 1998 PAP SMEAR 2000 HPV VACCINE (1 - 3-dose SCDM series) 2006 COVID-19 VACCINE (1 - 2024-2 5 season) 2023 MAMMOGRAM 04/28/2024 04/28/2022 SCREENING FOR DIABETES 10/11/2024 INFLUENZA VACCINE (#1) 2024 ZOSTER VACCINE (1 of 2) 2029 DEPRESSION SCREENING Completed 10/11/2024 HIB VACCINE Aged Out No longer eligi ble based on patient's age to complete this topic MENINGOCOCCAL (Group B) VACC INE SHARED DECISION-MAKING Aged Out No longer eligibl e based on patient's age to complete this topic MENINGOCOCCAL GROUPS A/C/Y/W VACCINE Aged Out No longer eligible b ased on patient's age to complete this topic Insurance [employer] SELF PAY NO INSURANCE Member Subscriber Plan / Payer (Ef fective for All Dates) Name:Mandi Hamilton Member ID:Not on file Relation to Subscriber:Not on file Name:MANDI HAMILTON Subscriber ID:Not on file (Home) Address: [address] [place] [phone] Payer ID:Not on file Group ID:Not on file Type:Self Pay Address: [place], [place] Care Teams Transmitter Chief Relationship Specialty Start Date End Date Dionicio Asencio MD [address] [place] [address] PCP - General 03/01/22 Katelin Gonzalez MD [address] [address] General Surgery 10/19/24
== END 2024-10-22 14:07 | disposition home or self-care (01) ==
PROVIDERS: PCP Internal Medicine; Visit Provider Surgery
DX: N61.1 Abscess of the breast and nipple (principal)
CPT/HCPCS: 76642

== ENCOUNTER 2025-02-11 11:51 | Day surgery (SDC) | payer OTHER, SELFPAY ==
[2025-02-11] VITALS (8 sets, daily range): BP systolic 90–134; BP diastolic 45–99; PULSE 75–91; RESP 14–20; TEMP 36.4–36.6; O2SAT 90–100; BMI 40.1
--- OUTSIDE RECORDS SUMMARY | 2025-02-11 11:50 | XMS_ITS | Encounter Summary ---
Author Organization [facility] Health Address [facility] [place] [address] Care Team Providers Care Train Braker Name Role Phone Dionicio Asencio MD Primary Care Provider + [phone] Katelin Gonzalez MD Unavailable [phone] Reason for Visit * Reason Onset Date Comments Med Question 12/10/2024 Encounter Details Date Type Department Care Team (Late st Contact Info) Description 12/10/2024 Telephone [facility] - PRIMARY TEACHER [address] [place] [address] Debora Eric MD [address] [place] [address] Med Question Social History Tobacco Use Types Packs/Day Years Used Date Smoking Tobacco: Every Day Cigarettes Smokeless Tobacco: Never Alcohol Use Standard Drinks/Week Comments Not Currently 0 (1 standard drink = 0.6 oz pur e alcohol) PHQ-2 Answer Date Recorded Patient Health Questionnaire-2 Score 0 12/13/2024 Comments No Sex and Gender Information Value Date Recorded Sex Assigned at Not on file 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 Question Answer Date of Assessment Author Little interest or pleasure in doing things Not at all 12/13/2024 9:01 AM CDAshlyn Cervantes Feeling down, depressed, or hopeless Not at all 12/13/2024 9:01 AM CDT Ashlyn Patton Patient Health Questionnaire -2 Score 0 12/13/2024 9:01 AM CDT Ashlyn Patton documented as of this encounter Miscellaneous Notes * Telephone Encounter - Izabela Baldwin RN - 12/10/2024 3:59 PM CDT RN returned call to pt. Pt had surgery 11/27/24. Pt went back to work last week ( 4 days ago) pt said about 3 days ago noticed brown to light pink spotting. 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 Pt said she rested this weekend and spotting stopped and back to work today and noticed it again. Pt said she doesn't feel like she is over doing it/ overworking herself. Spotting has picked up a little more. No change in color, still light pink. Pt changes pad a couple times a day. Pt said along with this spotting she also noticed right side pain and pain in belly button area. Pt denies fever, incisions WNL. Pt said she does take tylenol and Motrin and that eases pain. Pt has post op appt this week 12/13/24 RN went over common to see some spotting wax and wane but as pt went back to work this is when it started. RN discussed pt being off for healing, 6 weeks. Pt said she is unable to do this. 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 RN recommended light duty, no lifting over 15 pounds or periods of bending, pushing, pulling. RN went over ER precautions with pt. Pt will continue to monitor for now. RN will also send to Dr Perez to update if anything to advise further * Telephone Encounter - Shae Abbasi - 12/10/2024 3:42 PM CDT Patient states she has been spotting for the last 3 days, need to speak to nurse about it Cb [phone] documented in this encounter Plan of Treatment Not on file documented as of this encounter Visit Diagnoses Not on filedocumented in this encounter Care Teams Train Braker Relationship Specialty Start Date End Date Dionicio Asencio MD [address] [facility] [address] [place] [address] PCP - General 03/01/22 Katelin Gonzalez MD [address] [address] General Surgery 10/19/24 documented as of this encounter
--- OUTSIDE RECORDS SUMMARY | 2025-02-11 11:50 | XMS_ITS | Clinical Summary ---
Author Organization [facility] Address [address] [place] [address] Care Team Providers Care Project Finance Analyst Name Role Phone Dionicio Asencio MD Primary Care Provider + [phone] Katelin Gonzalez MD Unavailable [phone] Source Comments [facility] Affiliates and Associated Physician Practices is amultiple site organization consisting of ambulatory clinics and hospital sitesin [place], [place], [place] and [place]. This disclosure is being madepursuant to the Care Everywhere program and may not contain all information available regarding this patient. Last updated 17.[facility] [employer] Allergies Active Allergy Reactions Criticality Noted Date Comments Codeine Urticaria,Swelling Medium 10/11/2024 Metronidazole Swelling High 07/18/2024 was vaginal gel but had facial swelling and body itching Medications * Be aware that medications may not be up to date on this document. Alwaysverify current medications with the patient. Progesterone 100 MG capsule TAKE 1 CAPSULE BY MOUTH EVERY DAY AT BEDTIME 5 Active Progesterone 200 MG capsule Take 1 (one) capsule by mouth once daily 5 Active ondansetron (Zofran) 4 MG tablet Take 1 (one) tablet by mouth every 6 hours as needed 5 Active ondansetron, disintegrating, (Zofran ODT) 4 MG tablet DISSOLVE 1 TABLET ON THE TONGUE EVERY 8 HOURS NEEDED FOR NAUSEA OR VOMITING 5 Active acetaminophen (Tylenol) 500 MG capsule Take 2 (two) capsules by mouth every 6 hours as needed for Fever or Pain 50 capsule 5 Active Additional Information Patient not taking.Reported on 01/24/2025 ibuprofen (Motrin) 600 MG tablet Take 1 (one) tablet by mouth every 6 hours as needed for Pain 30 tablet 5 Active Additional Information Patient not taking.Reported on 01/24/2025 polyethylene glycol 3350 (Miralax) 17 GM/SCOOP powder Take 17 (seventeen) g by mouth once daily 238 g 5 Active Additional Information Patient not taking.Reported on 01/24/2025 ondansetron, disintegrating, (Zofran ODT) 4 MG tablet Take 1 (one) tablet by mouth every 6 hours as needed for Nausea/Vomiting Allow tablet to dissolve on the tongue 10 tablet Active Additional Information Patient not taking.Reported on 01/24/2025 HYDROcodone-acet aminophen (Hurley) 5-325 MG tabletIndication s:Status post hysterectomy Take 1 (one) tablet by mouth every 6 hours as needed for Pain 12 tablet 5 Active Additional Information Patient not taking.Reported on 01/24/2025 Active Problems Problem Noted Date Diagnosed Date Abdominal adhesions 10/17/2024 Encounters Date Type Department Care Team Description 01/24/2025 9: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 Office Visit [facility] [address] [place] [phone] Debora Schwab MD Postop check (Primary Dx) 01/24/2025 Travel 12/16/2024 Refill [facility] [address] [place] [address] Brielle Wang MD Refill Request 12/13/2024 9:00 AM CDT Office Visit [facility] [address] [place] [address] [place] [phone] Debora Schwab MD Postop check (Primary Dx) 12/13/2024 Travel 12/10/2024 Telephone [facility] [address] [place] [address] [place] [phone] Debora Schwab MD Med Question 11/27/2024 7:20 AM CDT Anesthesia Event [facility] [address] [place] [address] Chris Burnette MD Levin, Vitaly F, MD 11/27/2024 7:15 AM CDT - 11/27/2024 12:15 PM CDT Surgery [facility] [address] [place] [address] Katelin Gonzalez MD LAPAROSCOPIC LYSIS OF ADHESIONS BY DR. GONZALEZ 11/27/2024 5:31 AM CDT - 11/27/2024 11:44 AM CDT Hospital Encounter [facility] [address] [place] [address] Katelin Gonzalez MD Surgery General Discharge Disposition: Home or Self Care 11/27/2024 Travel 11/14/2024 10:00 AM CDT - 11/14/2024 11:59 PM CDT Hospital Encounter [facility] [address] [place], [place] [id number] Debora Schwab MD Discharge Disposition: Home or Self Care 11/14/2024 Travel from Last 3 Months Social History Tobacco Use Types Packs/Day Years Used Date Smoking Tobacco: Every Day Cigarettes Smokeless Tobacco: Never Tobacco Cessation:Ready to Q uit: Not Asked; Counseling Given: Not Answered Alcohol Use Standard Drinks/Week Comments Not Currently 0 (1 standard drink = 0.6 oz pur e alcohol) PHQ-2 Answer Date Recorded Patient Health Questionnaire-2 Score 0 01/24/2025 Comments No Sex and Gender Information Value Date Recorded Sex Assigned at Not on file Legal Sex Female 10:01 AM 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 Gender Identity Not on file Sexual Orientation Not on file Last Filed Vital Signs Vital Sign Reading Time Taken Comments Blood Pressure 126/80 01/24/2025 9:28 AM 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 Pulse 64 11/27/2024 11:19 AM CDT Temperature 36.7 C (98.1 F) 11/27/2024 10:41 AM CDT Respiratory Rate 16 11/27/2024 11:19 AM CDT Oxygen Saturation 94% 11/27/2024 10:41 AM CDT Inhaled Oxygen Concentration - - Weight 107 kg (236 lb) 01/24/2025 9:28 AM 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 Height 160 cm (5' 3) 01/24/2025 9:28 AM 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 Body Mass Index 41.81 01/24/2025 9:28 AM 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 Plan of Treatment Health Maintenance Due Date [...] VACCINE (1 of 2 - PCV) 1998 HPV VACCINE (1 - 3-dose SCDM series) 2006 MAMMOGRAM 04/28/2024 04/28/2022 SCREENING FOR DIABETES 10/11/2024 COVID-19 VACCINE (1 - 2024-2 6 season) 2024 INFLUENZA VACCINE (#1) 2024 ZOSTER VACCINE (1 [...] on patient's age to complete this topic Procedures Procedure Name Priority Date/Time Associated Diagnosis Comments CARDIAC RHYTHM STRIP ORDER 11/29/2024 4:03 PM CDT APHERESIS/TRANSFUSI ON ORDER 11/29/2024 4:03 PM CDT PATHOLOGY TISSUE EXAM (STL) Routine 11/27/2024 9:07 AM CDT Abdominal adhesions CYTOLOGY NON-BUILDING RIGGER PANEL (STL) Routine 11/27/2024 8:23 AM CDT Abdominal adhesions ENDOTRACHEAL TUBE NOTE Routine 11/27/2024 8:16 AM CDT HCG URINE QUAL POCT NOTIFICATION STAT 11/27/2024 7:00 AM CDT Preop testing ME TL[facility], UTERUS 250 G OR LESS 11/27/2024 6:46 AM CDT Abdominal adhesions Case Notes 11/27/24 POSITION: SUPINE LENGTH: 90 CASE #: 1ST EQUIPMENT: N/A Special Needs DR. GONZALEZ NEEDS WILDLIFE PROTECTOR / DR. ERIC NEEDS AIRSEAL / DR. GONZALEZ WORKING FIRST ME LAP,DIAGNOSTIC ABDOMEN 11/27/2024 6:46 AM CDT Abdominal adhesions Case Notes 11/27/24 POSITION: SUPINE LENGTH: 90 CASE #: 1ST EQUIPMENT: N/A Special Needs DR. GONZALEZ NEEDS WILDLIFE PROTECTOR / DR. ERIC NEEDS AIRSEAL / DR. GONZALEZ WORKING FIRST BLOOD TYPE VERIFICATION Routine 11/27/2024 6:06 AM CDT HCG URINE QUALITATIVE - POCT (IP) INTERFACED Routine 11/27/2024 5:54 AM CDT TYPE + SCREEN PANEL Pre-Op 11/14/2024 1 0:48 AM CDT Preprocedural examination CBC W AUTO DIFFERENTIAL Pre-Op 11/14/2024 10:48 AM CDT Preprocedural examination from Last 3 Months Results * CARDIAC RHYTHM STRIP ORDER (11/29/2024 4:03 PM CDT) Narrative 11/29/2024 4:03 PM CDT Ordered by an unspecified provider. us Scanned Document CARDIAC SERVICES ORDERABLES Fin al Result * APHERESIS/TRANSFUSION ORDER (11/29/2024 4:03 PM CDT) Narrative 11/29/2024 4:03 PM CDT Ordered by an unspecified provider. us Scanned Document NURSING - VITAL SIGNS AND ASSES SMENT Final Result * PATHOLOGY TISSUE EXAM (STL) (11/27/2024 9:07 AM CDT) Case Report Surgical Pathology Report Case: [id number] Authorizing Provider: Debora Eric, Collected: 11/27/2024 09:07 AM Ordering Location: [facility] Received: 11/27/2024 10:00 AM Pathologist: Lesley Ventura MD Specimen: Uterus w Cervix, UTERUS, CERVIX, BILATERAL FALLOPIAN TUBES, BILATERAL OVARIES 11/28/2024 9:22 AM CDT [facility] Final Diagnosis Uterus, hysterectomy - Benign basalis endometrium - Myometrium and cervix with no histopathologic abnormality Ovary, left, oophorectomy - Endometriosis Ovary, right, oophorectomy - Cystic follicles Fallopian tubes, bilateral salpingectomy - No histopathologic abnormality 11/28/2024 9:22 AM T [facility] at 0922 CDT Clinical History The patient is a 44-year-old woman with abnormal uterine bleeding. Operative procedure: hysterectomy, bilateral salpingo-oophorectomy . 11/28/2024 9:22 AM CDT [facility] Gross Description The requisition and specimen(s) are identified with the patient's name Mandi Hamilton. Received in formalin, specimen A, uterus, cervix, bilateral fallopian tubes, bilateral ovaries, consists of a 61 g, 9.0 cm in length x 5.2 cm from cornu cornu x 3.2 cm from anterior to posterior uterus surfaced by a cameron-pink smooth dusky serosa with attached bilateral adnexa. The ectocervix is cameron-maya smooth dusky with a 0.6 cm ovoid os. The cervical mucosa is cameron-pink and wrinkled with a well-defined transformation zone. There are no nabothian cysts present. The cameron-pink trabecular myometrium averages 1.5 cm in thickness. The endometrial canal is at 6.4 cm in length x 2.8 cm from cornu to cornu. The endometrium is red-pink smooth glistening and extends to a depth of < 0.1 cm. There are no intramural, subserosal, or submucosal nodules present. The pink-purple lobular cystic ovaries average 3.5 x 2.8 x 2.0 cm and have portions of attached fimbriated fallopian tube averaging 3.5 cm in length x 0.5 cm in diameter, which are surfaced by a red-brown smooth dusky serosa. There is a portion of fallopian tube missing, bilaterally, consistent with sterilization procedure. The cut surfaces of the ovaries show multiple thin-walled unilocular cystic structures ranging from 0.5 to 2.0 cm in greatest dimension which have a thick hemorrhagic fluid and mucus within the cystic spaces. There are no papillary excrescences or projections emanating from the inner cyst callahan. The remaining cut surfaces the ovaries show cameron-brown to cameron-pink heterogeneous normal-appearing ovarian parenchyma without additional abnormality. The cut surfaces of the fallopian tubes show stellate lumina with average wall thicknesses of 0.1 cm. Hone Operator sections are submitted in 12 cassettes labeled as follows: A1 anterior cervix A2 posterior cervix A3-A4 transverse sections of anterior endomyometrium A5-A6 transverse sections of posterior endomyometrium A7-A8 transverse sections of right ovary A9 sections of right fallopian tube to include entire fimbria A10-A11 transverse sections of left ovary A12 sections of left fallopian tube to include entire fimbria. RB 11/28/2024 9:22 AM [facility] Microscopic Description Microscopic examination substantiates the above diagnosis. 11/28/2024 9:22 AM [facility] Pathologist Location at [facility] 11/28/2024 9:22 AM [facility] Disclaimer All histochemical and/or immunohistochemical results are interpreted with controls that demonstrate appropriate staining reactions before reporting results. Note on use of immunocytochemistry reagents: This test was developed and its performance characteristic determined by [facility], Department of Laboratory Medicine. It has not been cleared or approved by the U.S. Food and Drug Administration (FDA). The FDA has determined that such clearance or approval is not necessary. The test is used for clinical purpose. It should not be regarded as investigational or for research. This laboratory is certified to perform high complexity testing. The performance characteristics of the IHC/SHANIQUE assays have been validated on formalin-fixed paraffin embedded tissues only. The assays have not been validated on decalcified tissues. Results should be interpreted with caution. 11/28/2024 9:22 AM CDT [facility] Embedded Images 11/28/2024 9:22 AM CDT [facility] Pathology/Cytolog y SPECIMEN FROM UTERINE CERVIX OBTAINED BY HYSTERECTOMY / Unknown 11/27/2024 9:07 AM CDT 11/27/2024 10:00 AM CDT Comment:Pre-op diagnosis: Abdominal adhesions [K66.0] Debora Eric MD LAB - PATHOLOGY/CYTO LOGY ORDERABLES Final Result [facility] [address] [place] [address] * CYTOLOGY NON-BUILDING RIGGER PANEL (STL) (11/27/2024 8:23 AM CDT) Case Report Cytology Non Systems Testing Laboratory Technician Report Case: [id number] Authorizing Provider: Debora Eric, Collected: 11/27/2024 08:23 AM Ordering Location: [facility] Received: 11/27/2024 10:09 AM Pathologist: Nirmala Razo MD Specimen: Pelvic Washings, PELVIC WASHINGS 11/28/2024 10:41 AM T [facility] Final Diagnosis Pelvic washings: - Negative for malignancy 11/28/2024 10:41 AM [facility] at 1041 CDT Clinical History 44 year old woman with abnormal uterine bleeding. Hysterectomy - BSO non-neoplastic ([id number], 11/27/2024). 11/28/2024 10:41 AM CDT [facility] Gross Description 60 ml red pelvic washings. 1 ThinPrep and a cell block. 11/28/2024 10:41 AM T [facility] Microscopic Description Microscopic examination substantiates the final diagnosis. The ThinPrep and cell block slides show scant cellularity, with one or two strips of bland mesothelium and a small population of macrophages and lymphocytes. No tumor is seen. 11/28/2024 10:41 AM CDT [facility] Pathologist Location at [facility] 11/28/2024 10:41 AM CDT [facility] Disclaimer All histochemical and/or immunohistochemical results are interpreted with controls that demonstrate appropriate staining reactions before reporting results. Note on use of immunocytochemistry reagents: This test was developed and its performance characteristic determined by [facility], Department of Laboratory Medicine. It has not been cleared or approved by the U.S. Food and Drug Administration (FDA). The FDA has determined that such clearance or approval is not necessary. The test is used for clinical purpose. It should not be regarded as investigational or for research. This laboratory is certified to perform high complexity testing. The performance characteristics of the IHC/SHANIQUE assays have been validated on formalin-fixed paraffin embedded tissues only. The assays have not been validated on decalcified tissues. Results should be interpreted with caution. 11/28/2024 10:41 AM CDT [facility] Embedded Images 11/28/2024 10:41 AM CDT [facility] Pathology/Cytolog y SPECIMEN OBTAINED BY PERITONEAL LAVAGE / Unknown 11/27/2024 8:23 AM CDT 11/27/2024 10:09 AM CDT Comment:Pre-op diagnosis: Abdominal adhesions [K66.0] Debora Eric MD LAB - PATHOLOGY/CYTO LOGY ORDERABLES Final Result Performing Organization Address City/State/[facility] Co de Phone Number [facility] [address] [place] [phone] * ETT LINE PERFORMABLE (11/27/2024 8:16 AM CDT) Narrative Janelle Oliver APRN-CRNA - 11/27/2024 8:16 AM CDT Janelle Oliver APRN-CRNA 11/27/2024 8:17 AM Endotracheal Tube Placement: Patient Location: OR. Intubation Event Date/Time: 11/27/2024 7:38 AM Procedure: intubation ([id number]) Procedure Section: Sedation: under general anesthesia. Indications for Airway Management: anesthesia Induction: standard IV Patient Position: sniffing Mask Ventilation: easy with oral airway. Blade Type: Video Blade Size: 3 Laryngoscopy View: grade 1 (full cords) Intubation Adjuncts: cricoid pressure Tube: endotracheal tube Placement: oral Tube type: cuff - inflated Tube Size (MM): 7 Depth of Insertion (CM): 22 Measured From: lips Cuff Inflated With: air Number of Attempts: 1. Placement Verified By: direct visualization, bilateral breath sounds and CO2 monitor Tube secured with: adhesive tape. Dentition unchanged? Yes Difficult Airway? No. Procedure Start Time: 11/27/2024 7:38 AM. Staff Section Anesthesia Provider: Janelle Oliver APRN-DIANE, Performed the procedure us Chris Burnette MD GENERAL ANESTHESIA ORDERABLE S Final Result * HCG URINE QUAL POCT NOTIFICATION (11/27/2024 7:00 AM CDT) Comment Notification Label Only - See Separate Report 11/27/2024 7:00 AM CDT [facility] Urine URINE / Unknown 5:45 AM CDT us Debora Eric MD LAB - URINALYSIS ORD ERABLES Final Result Performing Organization Address City/[facility]/ZIP Co de Phone Number [facility] [address] [place] [address] * BLOOD TYPE VERIFICATION (11/27/2024 6:06 AM CDT) ABO Rh O POS 11/27/2024 6:4 6 AM CDT [facility] Blood Bank BLOOD SPECIMEN / Unknown Venipuncture / Unknown 11/27/2024 6:06 AM CDT 11/27/2024 6:17 AM CDT us Marvin Costa MD LAB - BLOOD BANK ORDERABLES Jennifer l Result [facility] [address] [phone] * HCG URINE QUALITATIVE - POCT (IP) INTERFACED (11/27/2024 5:54 AM CDT) HCG Qual Urine Negative Negative 11/27/2024 5:59 AM CDT [facility] Urine URINE / Unknown 11/27/2024 5 :54 AM CDT 11/27/2024 5:59 AM CDT us Katelin Gonzalez MD LAB - POINT OF CARE ORDERABLE S Final Result Performing Organization Address [facility]/ZIP Co de Phone Number [facility] [address] [place] [address] * TYPE + SCREEN PANEL (11/14/2024 10:48 AM CDT) [facility] ABO Rh O POS 11/14/2024 11:54 AM CDT [facility] Comment:No history; collect retype. Antibody Screen NEG 11:54 AM CDT [facility] Blood Bank BLOOD SPECIMEN / Unknown Venipuncture / Unknown 11/14/2024 10:48 AM CDT 11/14/2024 11:03 AM CDT us Debora Eric MD LAB - BLOOD BANK ORD ERABLES Final Result Performing Organization Address [facility] Co de Phone Number [facility] [address] [place] [address] * (ABNORMAL) CBC W AUTO DIFFERENTIAL (11/14/2024 10:48 AM CDT) [facility] WBC 8.0 4.0 - 10.7 x10E9/L 11/14/2024 11:11 AM CDT [facility] RBC Count 4.50 3.90 - 5.20 x10E12/L 11/14/2024 11:11 AM CDT [facility] Hemoglobin 15.4 11.9 - 15.8 g/dL 11/14/2024 11:11 AM CDT [facility] Hematocrit 43.8 34.8 - 46.1 % 11/14/2024 11:11 AM CDT [facility] MCV 97.3 80.0 - 98.0 fL 11/14/2024 11:11 AM CDT [facility] MCH 34.2(H) 26.7 - 33.6 pg 11/14/2024 11:11 AM CDT [facility] MCHC 35.2 31.7 - 36.3 g/dL 11/14/2024 11:11 AM CDT [facility] RDW-CV 13.3 11.3 - 14.8 % 11/14/2024 11:11 AM CDT [facility] Platelet Count 247 150 - 420 x10E9/L 11/14/2024 11:11 AM CDT [facility] MPV 9.7 7.8 - 11.4 fL 11/14/2024 11:11 AM CDT [facility] Neutrophil % 59.4 41.0 - 74.0 % 11/14/2024 11:11 AM CDT [facility] Lymphocyte % 31.0 17.0 - 47.0 % 11/14/2024 11:11 AM CDT [facility] Monocyte % 6.9 3.0 - 11.0 % 11/14/2024 11:11 AM CDT [facility] Eosinophil % 1.8 0.0 - 7.0 % 11/14/2024 11:11 AM CDT [facility] Basophil % 0.5 0.0 - 1.6 % 11/14/2024 11:11 AM CDT [facility] Immature Granulocytes % 0.4 0.0 - 1.0 % 11/14/2024 11:11 AM CDT [facility] Neutrophil Absolute 4.74 1.60 - 7.50 x10E9/L 11/14/2024 11:11 AM CDT [facility] Lymphocyte Absolute 2.47 1.00 - 4.40 x10E9/L 11/14/2024 11:11 AM CDT [facility] Monocyte Absolute 0.55 0.15 - 1.00 x10E9/L 11/14/2024 11:11 AM CDT [facility] Eosinophil Absolute 0.14 0.00 - 0.60 x10E9/L 11/14/2024 11:11 AM CDT [facility] Basophil Absolute 0.04 0.00 - 0.13 x10E9/L 11/14/2024 11:11 AM CDT [facility] Blood BLOOD SPECIMEN / Unknown Venipuncture / Unknown 11/14/2024 10:48 AM CDT 11/14/2024 11:03 AM CDT Debora Eric MD LAB - HEMATOLOGY ORD ERABLES Final Result [facility] [address] [place] [address] from Last 3 Months Insurance [employer] SELF PAY NO INSURANCE Member Subscriber Plan / Payer (Ef fective for All Dates) Name:Mandi Hamilton Member ID:Not on file Relation to Subscriber:Not on file Name:MANDI HAMILTON Subscriber ID:Not on file (Home) Address: [address] [place] [phone] Payer ID:Not on file Group ID:Not on file Type:Self Pay Address: [place], [place] Care Teams Project Finance Analyst Relationship Specialty Start Date End Date Dionicio Asencio MD [phone] [address] PCP - General 03/01/22 Katelin Gonzalez MD [address] [address] General Surgery 10/19/24
--- NOTE | 2025-02-11 12:03 | ED.SKABFB ---
HPI - Skin/Abscess/Foreign Bdy General Chief complaint: Skin/Abscess/Foreign Body Stated complaint: L breast abscess, has surgery at 1300 Time Seen by Provider: 02/11/25 12:02 Source: patient Mode of arrival: ambulatory Limitations: no limitations History of Present Illness HPI narrative: Patient presents with report of a left breast abscess. She was scheduled for surgery with the breast surgeon this afternoon for this issue but there were insurance issues and she was advised to come through the ED as a result. Patient reports that she had been taking antibiotics for week and has been seen by Dr Bee for this issue. NPO since midnight. Related Data Allergies Allergy/AdvReac Type Severity Reaction Status Date / Time codeine Allergy Intermediate Swelling Verified 02/11/25 11:57 metronidazole Allergy Intermediate Swelling Verified 02/11/25 11:57 PMFSH Past Medical History Medical History Left breast mass (07/18/24) Left total duct excision 3. Excisional biopsy of left lateral breast lesion Vaginal odor Screening mammogram, encounter for Nipple discharge Bulging disc Arthritis Hernia (03/25/21) umbilical hernia with mesh Breast abscess 2018 lt breast which turned septic Surgical History Surgical History History of hysteroscopy (08/19/22) Hscope D&C / endometrial Ablation History of hysteroscopy (02/18/22) Hscope D&C / polypectomy History of History of tubal ligation History of appendectomy 2020 Family History Family History Grandparent Hypertension Other Cerebrovascular accident maternal aunt Social History Social History (Updated 02/11/25 @ 10:02 by Reshma Ramirez CMA) Smoking packs per day: 1.5 Smoking cigarettes per day: 30.0 Years smoked: 30 Smoking pack-years: 45.00 Smoking status: Current every day smoker Tobacco type: cigarettes Second hand tobacco smoke exposure: Yes (spouse smokes also) Alcohol intake: current Alcohol use details: 1-2 a year Substance use: current Substance use type: marijuana Other substance usage details: Daily Lack of Transportation: No Lack of Food: Never True Current Housing: I Have Housing Concerned About Future Housing: No Difficulty Paying Gas/Electric Bills: No Difficulty Paying for Meds: No Currently Unemployed: No Education: High School Diploma/GED Difficulty w/ Childcare or Family Care: No Living arrangements: with family Additional living arrangements comments: same sex partner Occupation/Education: occupation 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 HEAD: Normocephalic, atraumatic. EYES: Non injected, non icteric ENT: Nares clear, no rhinorrhea or epistaxis. Gross auditory acuity intact. NECK: Supple. No meningismus. CHEST: Speaking in full sentences. No respiratory distress. HEART: Regular rate and rhythm. . ABDOMEN: Soft, nondistended. No rigidity or guarding. Not peritoneal BREAST: Left breast central area around nipple-areolar complex with significant erythema. No open wounds or drainage noted. Moderate cellulitis through the central area of the breast. No ecchymosis or crepitus. EXTREMITIES: Normal range of motion. No lower extremity edema. SKIN: Warm, dry. NEURO: No focal deficits. Alert and oriented. Answering questions. Following commands. Normal speech without aphasia or dysarthria. PSYCH: Normal mood and affect. Course Vital Signs Vital signs: Vital Signs Temperature 97.9 F 02/11/25 11:54 Pulse Rate 91 02/11/25 11:54 Respiratory Rate 16 02/11/25 11:54 Blood Pressure 134/65 02/11/25 11:54 Pulse Oximetry 100 02/11/25 11:54 Oxygen Delivery Room Air 02/11/25 11:54 Temperature 97.9 F 02/11/25 11:54 Pulse Rate 91 02/11/25 11:54 Respiratory Rate 16 02/11/25 11:54 Blood Pressure 134/65 02/11/25 11:54 Pulse Oximetry 100 02/11/25 11:54 Oxygen Delivery Room Air 02/11/25 11:54 MDM - Skin/Abscess/Foreign Bdy MDM Narrative Medical decision making narrative: 44-year-old female presents with report of a left breast abscess. Patient had been scheduled for surgical procedure with the breast surgeon Dr. Bee this afternoon but there had been logistical insurance issues and was advised to present to the ED. In the emergency department they are afebrile with vital signs within normal limits. Patient evaluated by myself and discussed with Dr. Bee. Will take to the OR. Has been on antibiotics and been NPO since midnight. NPO order placed here and order for IV insertion. Pre-op team to come take patient to surgical area. Differential Diagnosis Differential diagnosis: Likely abscess of skin or subcutaneous tissue, cellulitis and other (malignancy; mastitis) Medical Records Attestation: I reviewed the patient's medical records. Discharge Plan Discharge Clinical Impression: Abscess of breast, left, Cellulitis of left breast Patient Disposition: Still a Patient Condition: Stable
--- NOTE | 2025-02-11 12:36 | WPDHPUPDATE1 ---
History and Physical Update Update Date/Time: 02/11/25 12:36 - Incision and drainage of left breast abscess. History and Physical has been reviewed, including an updated exam of the patient. There are NO changes in the patient's condition. Risks, benefits, and alternatives have been discussed and questions answered. Patient agrees to proceed with procedure.
--- OUTSIDE RECORDS SUMMARY | 2025-02-11 13:19 | XMS_ITS | Clinical Summary ---
Author Organization [facility] Address [address] [place] [address] Care Team Providers Care Wholesale Diamond Broker Name Role Phone Dionicio Asencio MD Primary Care Provider + [phone] Katelin Gonzalez MD Unavailable [phone] Source Comments [facility],non-[facility] Affiliates and Associated Physician Practices is amultiple site organization consisting of ambulatory clinics and hospital sitesin [place], [place], [place] and [place]. This disclosure is being madepursuant to the Care Everywhere program and may not contain all information available regarding this patient. 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 [address] [place] [phone] Deboar Schwab MD Postop check (Primary Dx) 01/24/2025 Travel 12/16/2024 Refill [facility] [address] [place] [address] Brielle Wang MD Refill Request 12/13/2024 9:00 AM CDT Office Visit [facility] [address] [place] [address] [place] [phone] Debora Scwhab MD Postop check (Primary Dx) 12/13/2024 Travel 12/10/2024 Telephone [facility] [address] [place] [address] [place] [phone] Debora Schwab MD Med Question 11/27/2024 7:20 AM CDT Anesthesia Event [facility] [address] [place] [address] Chris Burnette MD Levin, Vitaly F, MD 11/27/2024 7:15 AM CDT - 11/27/2024 12:15 PM CDT Surgery [facility] [address] [place] [address] Katelin Gonzalez MD LAPAROSCOPIC LYSIS OF ADHESIONS BY DR. 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 Gender Identity Not on file Sexual Orientation Not on file Last Filed Vital Signs Vital Sign Reading Time Taken Comments Blood Pressure 126/80 01/24/2025 9:28 AM 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 Pulse 64 11/27/2024 11:19 AM CDT Temperature 36.7 C (98.1 F) 11/27/2024 10:41 AM CDT Respiratory Rate 16 11/27/2024 11:19 AM CDT Oxygen Saturation 94% 11/27/2024 10:41 AM CDT Inhaled Oxygen Concentration - - Weight 107 kg (236 lb) 01/24/2025 9:28 AM 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 Height 160 cm (5' 3) 01/24/2025 9:28 AM 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 GONZALEZ NEEDS STARCH TREATING ASSISTANT / DR. ERIC NEEDS AIRSEAL / DR. GONZALEZ WORKING FIRST NE LAP,DIAGNOSTIC ABDOMEN 11/27/2024 6:46 AM CDT Abdominal adhesions Case Notes 11/27/24 POSITION: SUPINE LENGTH: 90 CASE #: 1ST EQUIPMENT: N/A Special Needs DR. GONZALEZ NEEDS STARCH TREATING ASSISTANT / DR. ERIC NEEDS AIRSEAL / DR. [...] CDT) Case Report Surgical Pathology Report Case: [id number] Authorizing Provider: Debora Eric, Collected: 11/27/2024 09:07 AM Ordering Location: [facility] Received: 11/27/2024 10:00 AM Pathologist: Lesley Ventura MD Specimen: Uterus w Cervix, UTERUS, CERVIX, BILATERAL FALLOPIAN TUBES, BILATERAL OVARIES 11/28/2024 9:22 AM CDT [facility] Final Diagnosis Uterus, hysterectomy - Benign basalis endometrium - Myometrium and cervix with no histopathologic abnormality Ovary, left, oophorectomy - Endometriosis Ovary, right, oophorectomy - Cystic follicles Fallopian tubes, bilateral salpingectomy - No histopathologic abnormality 11/28/2024 9:22 AM T [facility] at 0922 CDT Clinical History The patient is a 44-year-old woman with abnormal uterine bleeding. Operative procedure: hysterectomy, bilateral salpingo-oophorectomy . 11/28/2024 9:22 AM CDT [facility] Gross Description The requisition and specimen(s) [...] with average wall thicknesses of 0.1 cm. Journal Box Inspector sections are submitted in 12 cassettes labeled [...] entire fimbria. RB 11/28/2024 9:22 AM [facility] Microscopic Description Microscopic examination substantiates the above diagnosis. 11/28/2024 9:22 AM [facility] Pathologist Location at [facility] 11/28/2024 9:22 AM [facility] Disclaimer All histochemical and/or immunohistochemical results are interpreted with controls that demonstrate appropriate staining reactions before reporting results. Note on use of immunocytochemistry reagents: This test was developed and its performance characteristic determined by [facility], Department of Laboratory Medicine. It has not [...] interpreted with caution. 11/28/2024 9:22 AM CDT [facility] Embedded Images 11/28/2024 9:22 AM CDT [facility] Pathology/Cytolog y SPECIMEN FROM UTERINE CERVIX OBTAINED BY HYSTERECTOMY / Unknown 11/27/2024 9:07 AM CDT 11/27/2024 10:00 AM CDT Comment:Pre-op diagnosis: Abdominal adhesions [K66.0] Debora Eric MD LAB - PATHOLOGY/CYTO LOGY ORDERABLES Final Result [facility] [address] [place] [address] * CYTOLOGY NON-AGRICULTURE LABORER PANEL (STL) (11/27/2024 8:23 AM CDT) Case Report Cytology Non Centrifugal Supervisor Report Case: [id number] Authorizing Provider: Debora Eric, Collected: 11/27/2024 08:23 AM Ordering Location: [facility] Received: 11/27/2024 10:09 AM Pathologist: Nirmala Razo MD Specimen: Pelvic Washings, PELVIC WASHINGS 11/28/2024 10:41 AM T [facility] Final Diagnosis Pelvic washings: - Negative for malignancy 11/28/2024 10:41 AM [facility] at 1041 CDT Clinical History 44 year old woman with abnormal uterine bleeding. Hysterectomy - BSO non-neoplastic ([id number], 11/27/2024). 11/28/2024 10:41 AM CDT [facility] Gross Description 60 ml red pelvic washings. 1 ThinPrep and a cell block. 11/28/2024 10:41 AM T [facility] Microscopic Description Microscopic examination substantiates the final diagnosis. The ThinPrep and cell block slides show scant cellularity, with one or two strips of bland mesothelium and a small population of macrophages and lymphocytes. No tumor is seen. 11/28/2024 10:41 AM CDT [facility] Pathologist Location at [facility] 11/28/2024 10:41 AM CDT [facility] Disclaimer All histochemical and/or immunohistochemical results are interpreted with controls that demonstrate appropriate staining reactions before reporting results. Note on use of immunocytochemistry reagents: This test was developed and its performance characteristic determined by [facility], Department of Laboratory Medicine. It has not [...] interpreted with caution. 11/28/2024 10:41 AM CDT [facility] Embedded Images 11/28/2024 10:41 AM CDT [facility] Pathology/Cytolog y SPECIMEN OBTAINED BY PERITONEAL LAVAGE / Unknown 11/27/2024 8:23 AM CDT 11/27/2024 10:09 AM CDT Comment:Pre-op diagnosis: Abdominal adhesions [K66.0] Debora Eric MD LAB - PATHOLOGY/CYTO LOGY ORDERABLES Final Result Performing Organization Address City/State/[facility] Co de Phone Number [facility] [address] [place] [phone] * ETT LINE PERFORMABLE (11/27/2024 8:16 AM CDT) Narrative Janelle Oliver APRN-CRNA - 11/27/2024 8:16 AM CDT Janelle Oliver APRN-CRNA 11/27/2024 8:17 AM Endotracheal Tube Placement: Patient Location: OR. Intubation Event Date/Time: 11/27/2024 7:38 AM Procedure: intubation (04440) Procedure Section: Sedation: under general anesthesia. Indications [...] See Separate Report 11/27/2024 7:00 AM CDT [facility] Urine URINE / Unknown 5:45 AM CDT us Debora Eric MD LAB - URINALYSIS ORD ERABLES Final Result Performing Organization Address City/[facility]/ZIP Co de Phone Number [facility] [address] [place] [address] * BLOOD TYPE VERIFICATION (11/27/2024 6:06 AM CDT) ABO Rh O POS 11/27/2024 6:4 6 AM CDT [facility] Blood Bank BLOOD SPECIMEN / Unknown Venipuncture / Unknown 11/27/2024 6:06 AM CDT 11/27/2024 6:17 AM CDT us Marvin Costa MD LAB - BLOOD BANK ORDERABLES Jennifer l Result [facility] [address] [phone] * HCG URINE QUALITATIVE - POCT (IP) INTERFACED (11/27/2024 5:54 AM CDT) HCG Qual Urine Negative Negative 11/27/2024 5:59 AM CDT [facility] Urine URINE / Unknown 11/27/2024 5 :54 AM CDT 11/27/2024 5:59 AM CDT us Katelin Gonzalez MD LAB - POINT OF CARE ORDERABLE S Final Result Performing Organization Address [facility]/ZIP Co de Phone Number [facility] [address] [place] [address] * TYPE + SCREEN PANEL (11/14/2024 10:48 AM CDT) [facility] ABO Rh O POS 11/14/2024 11:54 AM CDT [facility] Comment:No history; collect retype. Antibody Screen NEG 11:54 AM CDT [facility] Blood Bank BLOOD SPECIMEN / Unknown Venipuncture / Unknown 11/14/2024 10:48 AM CDT 11/14/2024 11:03 AM CDT us Debora Eric MD LAB - BLOOD BANK ORD ERABLES Final Result Performing Organization Address [facility] Co de Phone Number [facility] [address] [place] [address] * (ABNORMAL) CBC W AUTO DIFFERENTIAL (11/14/2024 10:48 AM CDT) [facility] WBC 8.0 4.0 - 10.7 x10E9/L 11/14/2024 11:11 AM CDT [facility] RBC Count 4.50 3.90 - 5.20 x10E12/L 11/14/2024 11:11 AM CDT [facility] Hemoglobin 15.4 11.9 - 15.8 g/dL 11/14/2024 11:11 AM CDT [facility] Hematocrit 43.8 34.8 - 46.1 % 11/14/2024 11:11 AM CDT [facility] MCV 97.3 80.0 - 98.0 fL 11/14/2024 11:11 AM CDT [facility] MCH 34.2(H) 26.7 - 33.6 pg 11/14/2024 11:11 AM CDT [facility] MCHC 35.2 31.7 - 36.3 g/dL 11/14/2024 11:11 AM CDT [facility] RDW-CV 13.3 11.3 - 14.8 % 11/14/2024 11:11 AM CDT [facility] Platelet Count 247 150 - 420 x10E9/L 11/14/2024 11:11 AM CDT [facility] MPV 9.7 7.8 - 11.4 fL 11/14/2024 11:11 AM CDT [facility] Neutrophil % 59.4 41.0 - 74.0 % 11/14/2024 11:11 AM CDT [facility] Lymphocyte % 31.0 17.0 - 47.0 % 11/14/2024 11:11 AM CDT [facility] Monocyte % 6.9 3.0 - 11.0 % 11/14/2024 11:11 AM CDT [facility] Eosinophil % 1.8 0.0 - 7.0 % 11/14/2024 11:11 AM CDT [facility] Basophil % 0.5 0.0 - 1.6 % 11/14/2024 11:11 AM CDT [facility] Immature Granulocytes % 0.4 0.0 - 1.0 % 11/14/2024 11:11 AM CDT [facility] Neutrophil Absolute 4.74 1.60 - 7.50 x10E9/L 11/14/2024 11:11 AM CDT [facility] Lymphocyte Absolute 2.47 1.00 - 4.40 x10E9/L 11/14/2024 11:11 AM CDT [facility] Monocyte Absolute 0.55 0.15 - 1.00 x10E9/L 11/14/2024 11:11 AM CDT [facility] Eosinophil Absolute 0.14 0.00 - 0.60 x10E9/L 11/14/2024 11:11 AM CDT [facility] Basophil Absolute 0.04 0.00 - 0.13 x10E9/L 11/14/2024 11:11 AM CDT [facility] Blood BLOOD SPECIMEN / Unknown Venipuncture / Unknown 11/14/2024 10:48 AM CDT 11/14/2024 11:03 AM CDT Debora Eric MD LAB - HEMATOLOGY ORD ERABLES Final Result [facility] [address] [place] [address] from Last 3 Months Insurance [employer] SELF PAY NO INSURANCE Member Subscriber Plan / Payer (Ef fective for All Dates) Name:Mandi Hamilton Member ID:Not on file Relation to Subscriber:Not on file Name:MANDI HAMILTON Subscriber ID:Not on file (Home) Address: [address] [place] [phone] Payer ID:Not on file Group ID:Not on file Type:Self Pay Address: [place], [place] Care Teams Wholesale Diamond Broker Relationship Specialty Start Date End Date Dionicio Asencio MD [phone] [address] PCP - General 03/01/22 Katelin Gonzalez MD [address] [address] General Surgery 10/19/24
--- OUTSIDE RECORDS SUMMARY | 2025-02-11 13:19 | XMS_ITS | Encounter Summary ---
Author Organization [facility] Health Address [facility] [facility] [place] [address] Care Team Providers Care Marine Machinist Name Role Phone Dionicio Asencio MD Primary Care Provider + [phone] Katelin Gonzalez MD Unavailable [phone] Reason for Visit * Reason Onset Date Comments Med Question 12/10/2024 Encounter Details Date Type Department Care Team (Late st Contact Info) Description 12/10/2024 Telephone [facility] - MIRROR DEPARTMENT SUPERVISOR [address] [place] [phone] Debora Eric MD [address] [place] [address] Med Question Social History Tobacco [...] on file Legal Sex Female 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 Gender Identity Not on file Sexual Orientation [...] at all 12/13/2024 9:01 AM CDT Ashlyn a[place] Patient Health Questionnaire -2 Score 0 12/13/2024 [...] to speak to nurse about it Cb [phone] documented in this encounter Plan of Treatment Not on file documented as of this encounter Visit Diagnoses Not on filedocumented in this encounter Care Teams Marine Machinist Relationship Specialty Start Date End Date Dionicio Asencio MD [address] [facility] [address] [place] [address] PCP - General 03/01/22 Katelin Gonzalez MD [address] [address] General Surgery 10/19/24 documented as of this encounter
--- NOTE | 2025-02-11 13:27 | P.PNAN_ITS ---
Anes - Initial Pre Proc Eval Procedure: Operation Date: 02/11/25 13:30 Proposed Procedures p Incision and Drainage Left Breast Abscess - Candace Bee MD Date/Time: 02/11/25 13:27 Surgeon: Candace Bee MD Pre Op Diagnosis: L breast abscess, has surgery at 1300 Patient Data Age: 44 Gender: F Height: 1.6 m Weight: 106.7 kg Last Vital Signs Temp 36.6 C 02/11/25 11:54 Pulse 91 02/11/25 11:54 Resp 16 02/11/25 11:54 BP 134/65 02/11/25 11:54 Pulse Ox 100 02/11/25 11:54 O2 Del Method Room Air 02/11/25 11:54 Allergies Allergy/AdvReac Type Severity Reaction Status Date / Time codeine Allergy Intermediate Swelling Verified 02/11/25 11:57 metronidazole Allergy Intermediate Swelling Verified 02/11/25 11:57 Home Medications ?Medication ?Instructions ?Recorded ?Confirmed ?Type amoxicillin 875 mg-potassium 1 tablet PO Q12H #20 tabs 02/05/25 02/05/25 Rx clavulanate 125 mg tablet clindamycin HCl 300 mg capsule 300 mg PO Q6H 10 days # 40 caps 02/05/25 02/05/25 Rx (Cleocin HCl) fluconazole 150 mg tablet 150 mg PO ONCE #1 tablet 02/05/25 Rx ondansetron 4 mg disintegrating 4 mg PO Q8H PRN nausea and 02/05/25 02/05/25 Rx tablet vomiting #14 tabs Patient hx anesthesia problems: post op nausea/vomiting Family hx anesthesia problems: none Results Review: All pre-operative results and documents have been reviewed as part of the pre- operative evaluation. [facility] Past Medical History Medical History Left breast mass (07/18/24) Left total duct excision 3. Excisional biopsy of left lateral breast lesion Vaginal odor Screening mammogram, encounter for Nipple discharge Bulging disc Arthritis Hernia (03/25/21) umbilical hernia with mesh Breast abscess 2019 lt breast which turned septic Surgical History Surgical History History of hysteroscopy (08/19/22) Hscope D&C / endometrial Ablation History of hysteroscopy (02/18/22) Hscope D&C / polypectomy History of History of tubal ligation History of appendectomy 2020 Family History Family History Grandparent Hypertension Other Cerebrovascular accident maternal aunt Social History Social History Smoking packs per day: 1.5 Smoking cigarettes per day: 30.0 Years smoked: 30 Smoking pack-years: 45.00 Smoking status: Current every day smoker Tobacco type: cigarettes Second hand tobacco smoke exposure: Yes (spouse smokes also) Alcohol intake: current Alcohol use details: 1-2 a year Substance use: current Substance use type: marijuana Other substance usage details: Daily Lack of Transportation: No Lack of Food: Never True Current Housing: I Have Housing Concerned About Future Housing: No Difficulty Paying Gas/Electric Bills: No Difficulty Paying for Meds: No Currently Unemployed: No Education: High School Diploma/GED Difficulty w/ Childcare or Family Care: No Living arrangements: with family Additional living arrangements comments: same sex partner Occupation/Education: occupation 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 Gender identity (if verbalized by the patient): Female Sexual Orientation (if Verbalized by the Patient): Bisexual Spiritual care concerns: No Anes - Eval Final PreProcedure Day of Procedure 02/11/25 13:27 Patient weight: morbidly obese Heart: regular rate and rhythm Lungs: decreased breath sounds Airway: Mallampati scale class II Neurological: alert and oriented Last oral intake: >/= 8 hours ASA classification: III Emergent: no Anesthetic plan: proceed Anesthesia type and monitoring: general GIVS and standard monitoring Results Review: All pre-operative results and documents have been reviewed as part of the pre- operative evaluation. Informed Consent: The patient's anesthetic plan and its attendant risks and benefits were discussed with the patient/family/POA. Questions were solicited and answers provided to the satisfaction of the patient/family/POA.
--- OUTSIDE RECORDS SUMMARY | 2025-02-11 13:28 | XMS_ITS | Data Portability ---
Author Organization [facility] Address [address] [place] [address] Care Team Providers Care Kitchen Designer Name Role Phone LESLEY SOLIS Spanish Interpreter Assessment Encounter Date Assessment Date Assessment LastModified by Organization Details LastModified Time 08/05/2020 08/05/2020 MOUSTAPHA [email or web address] Not available 08/05/2020 18:45:03 08/20/2020 08/20/2020 AMANDA Stahl mwasserman Not available 08/19/2020 20:01:57 Plan of Treatment Reminders Order Date Submit Date Provider Last Modified By Organization Details Last Modified Time Details Appointments None recorded. Lab urinalysi s, dipstick 2021 022 [email or web address] 1 In-Office Order, Internal Use Only DO Not Attach Compendium DO Not Attach Compendium, Do Not Delete/merge, [id number] 09:59:27 culture, urine 2021 022 BISI [facility] (Centralized Electronic Ordering - All Locations), Patient Can Go To The Location Of Their Choice, [id number] 03:07:47 urinalysi s, dipstick 2020 021 [email or web address] In-Office Order, Internal Use Only DO Not Attach Compendium DO Not Attach Compendium, Do Not Delete/merge, [id number] 10:23:08 bacterial vaginosis panel, vaginal 2020 021 BISI [facility] (Centralized Electronic Ordering - All Locations), Patient Can Go To The Location Of Their Choice, [id number] 1 07:11:09 culture, vaginal/r ectal, streptoco ccus group B 2020 021 BISI [facility] (Centralized Electronic Ordering - All Locations), Patient Can Go To The Location Of Their Choice, [id number] 1 07:11:10 urinalysi s, dipstick 2020 021 [email or web address] 1 In-Office Order, Internal Use Only DO Not Attach Compendium DO Not Attach Compendium, Do Not Delete/merge, 17:07:34 culture, urine 2020 021 B[facility]I [facility] (Centralized Electronic Ordering - All Locations), Patient Can Go To The Location Of Their Choice, [id number] 1 14:11:24 bacterial vaginosis panel, vaginal 2020 021 [facility] (Centralized Electronic Ordering - All Locations), Patient Can Go To The Location Of Their Choice, [id number] 1 14:11:23 bacterial vaginosis panel, vaginal 2019 020 [facility] (Centralized Electronic Ordering - All Locations), Patient Can Go To The Location Of Their Choice, [id number] 0 07:09:39 culture, vaginal/r ectal, streptoco ccus group B 2019 020 [facility]I [facility] (Centralized Electronic Ordering - All Locations), Patient Can Go To The Location Of Their Choice, [id number] 0 07:09:39 urinalysi s, dipstick 2019 020 [email or web address] In-Office Order, Internal Use Only DO Not Attach Compendium DO Not Attach Compendium, Do Not Delete/merge, [id number] 0 14:18:37 Referral urologist referral 2021 022 BISI Wahl MD, [address], [place], [address], 14:32:39 urogyneco logist referral [address] [facility] , [address] [address] , [place], [address], 10:10:28 Procedures None recorded. Surgeries None recorded. Imaging None recorded. Medication Orders norethind kamari acetate 5 mg tablet [address] [facility], [address] [place], [id number], 10:00:53 Imvexxy Maintenan ce Pack 4 mcg vaginal insert 2020 [facility], [address] [place] [address], [address], 09:20:20 Flora s Butt Paste 16 % topical ointment 2020 [facility], [address] [place], [place], [id number], 2 09:20:17 Bactrim DS 800 mg-160 mg tablet 2019 020 [facility], [address] [place], [place], [id number], 16:43:12 nystatin 100,000 unit/gram topical ointment 2019 020 [facility], [address] [place], [place], [id number], 16:42:52 norethind kamari acetate 5 mg tablet 2019 020 [facility] #91963, [address] [place], [place], [id number], 0 12:43:28 nystatin 100,000 unit/gram topical ointment 2019 020 [facility], [address] [place], [address], 1 16:42:52 metronida zole 500 mg tablet 2019 020 [facility], [address] [place], [address], 1 16:42:17 Patient TargetsNo targets recorded. Patient Instructions Encounter Date Encounter Id Patient Instructions Last Modified By Organization Details Last Modified Time 05/07/2019 [id number] candidiasis: care instructions [email or web address] Not available 05/07/2019 13:42:24 bacterial vaginosis: care instructions mwasserman Not available 05/07/2019 13:41:26 When You Want to Lose Weight: Care Instructions [email or web address] Not available 05/07/2019 13:41:26 10/23/2019 [id number] heavy menstrual periods: care instructions mwasserman Not available 10/23/2019 12:43:21 08/20/2020 [id number] atrophic vaginitis: care instructions mwasserman Not available 08/20/2020 10:33:27 04/07/2021 [id number] A healthy lifestyle: care instructions [email or web address] Not available 04/07/2021 10:01:31 Reason for Referral Urogynecologist Referral for Cystocele possible Grade 1 cystocele, pelvic floor physical therapy Referring Physician: Lesley Solis, Clothes Drier Repairer, Encounter Date: 04/07/2021 Urologist Referral for Recur rent urinary tract infection chronic irritative voiding symptoms, urinary hesitancy x 2 months Referring Physician: Lesley Solis Clothes Drier Repairer, Encounter Date: 04/07/2021 Results Created Date Observation Date Name Description Value Unit Range Abnormal Flag Note LastModifiedBy Organization Detail LastModifiedTime 08/21/19 21 08/20/2020 urina lysis , dipst ick Leukocytes Negati ve Not Available In-Office Order Internal Use Only DO Not Attach Compendium DO Not Attach Compendium, Do Not Delete/merge, [facility] 08/20/2020 10:02:08/21/19 21 08/20/2020 urina lysis , dipst ick Nitrite negati ve Not Available In-Office Order Internal Use Only DO Not Attach Compendium DO Not Attach Compendium, Do Not Delete/merge, [facility] 08/20/2020 10:02:08/21/19 21 08/20/2020 urina lysis , dipst ick Urobilinogen 1 Not Available In-Of fice Order Internal Use Only DO Not Attach Compendium DO Not Attach Compendium, Do Not Delete/merge, [facility] 08/20/2020 10:02:08 08/21/19 21 08/20/2020 urina lysis , dipst ick Protein Negati ve Not Available In-Office Order Internal Use Only DO Not Attach Compendium DO Not Attach Compendium, Do Not Delete/merge, [facility] 08/20/2020 10:02:08 08/21/19 21 08/20/2020 urina lysis , dipst ick pH 6.5 Not Available In-Office Order Internal Use Only DO Not Attach Compendium DO Not Attach Compendium, Do Not Delete/merge, [facility] 08/20/2020 10:02:08 08/21/19 21 08/20/2020 urina lysis , dipst ick Blood Negati ve Not Available In-Office Order Internal Use Only DO Not Attach Compendium DO Not Attach Compendium, Do Not Delete/merge, [facility] 08/20/2020 10:02:08 08/21/19 21 08/20/2020 urina lysis , dipst ick Ketone Negati ve Not Available In-Office Order Internal Use Only DO Not Attach Compendium DO Not Attach Compendium, Do Not Delete/merge, [facility] 08/20/2020 10:02:08 08/21/19 21 08/20/2020 urina lysis , dipst ick Bilirubin Small Not Available In-Offic e Order Internal Use Only DO Not Attach Compendium DO Not Attach Compendium, Do Not Delete/merge, [facility] 08/20/2020 10:02:08 08/21/19 21 08/20/2020 urina lysis , dipst ick Glucose Negati ve Not Available In-Office Order Internal Use Only DO Not Attach Compendium DO Not Attach Compendium, Do Not Delete/merge, [facility] 08/20/2020 10:02:08 08/06/19 21 08/05/2020 urina lysis , dipst ick Leukocytes Negati ve Not Available In-Office Order Internal Use Only DO Not Attach Compendium DO Not Attach Compendium, Do Not Delete/merge, [facility] 08/05/2020 16:46:23 08/06/19 21 08/05/2020 urina lysis , dipst ick Nitrite negati ve Not Available In-Office Order Internal Use Only DO Not Attach Compendium DO Not Attach Compendium, Do Not Delete/merge, [facility] 08/05/2020 16:46:23 08/06/19 21 08/05/2020 urina lysis , dipst ick Urobilinogen 1 Not Available In-Of fice Order Internal Use Only DO Not Attach Compendium DO Not Attach Compendium, Do Not Delete/merge, [facility] 08/05/2020 16:46:23 08/06/19 21 08/05/2020 urina lysis , dipst ick Protein Negati ve Not Available In-Office Order Internal Use Only DO Not Attach Compendium DO Not Attach Compendium, Do Not Delete/merge, [facility] 08/05/2020 16:46:23 08/06/19 21 08/05/2020 urina lysis , dipst ick pH 5.5 Not Available In-Office Order Internal Use Only DO Not Attach Compendium DO Not Attach Compendium, Do Not Delete/merge, [facility] 08/05/2020 16:46:23 08/06/19 21 08/05/2020 urina lysis , dipst ick Blood Negati ve Not Available In-Office Order Internal Use Only DO Not Attach Compendium DO Not Attach Compendium, Do Not Delete/merge, [facility] 08/05/2020 16:46:23 08/06/19 21 08/05/2020 urina lysis , dipst ick Specific Imler 1.030 Not Available In-Off ice Order Internal Use Only DO Not Attach Compendium DO Not Attach Compendium, Do Not Delete/merge, [id number] 08/05/2020 16:46:23 08/06/19 21 08/05/2020 urina lysis , dipst ick Ketone Trace Not Available In-Office Order Internal Use Only DO Not Attach Compendium DO Not Attach Compendium, Do Not Delete/merge, [id number] 08/05/2020 16:46:23 08/06/19 21 08/05/2020 urina lysis , dipst ick Bilirubin Small Not Available In-Offic e Order Internal Use Only DO Not Attach Compendium DO Not Attach Compendium, Do Not Delete/merge, 08/05/2020 16:46:23 08/06/19 21 08/05/2020 urina lysis , dipst ick Glucose Negati ve Not Available In-Office Order Internal Use Only DO Not Attach Compendium DO Not Attach Compendium, Do Not Delete/merge, [id number] 08/05/2020 16:46:23 05/07/19 20 05/09/2019 bacte rial vagin osis panel , vagin al hsv 1 KATHE NEGATI VE negati ve Not Available [facility] ([facility]) [address] [place], [address], 05/11/2019 07:09:39 05/07/19 20 05/09/2019 bacte rial vagin osis panel , vagin al hsv 2 KATHE NEGATI VE negati ve Not Available [facility] ([facility]) [address] [place], [address], 05/11/2019 07:09:39 05/07/19 20 05/10/2019 bacte rial vagin osis panel , vagin al trich vag by KATHE NEGATI VE negati ve Not Available [facility] ([facility]) [address] [place], [address], 05/11/2019 07:09:39 05/07/19 20 05/10/2019 bacte rial vagin osis panel , vagin al chlamydia trachomatis, KATHE NEGATI VE negati ve Not Available [facility] ([facility]) [address] [place], [address], 05/11/2019 07:09:39 05/07/19 20 05/10/2019 bacte rial vagin osis panel , vagin al neisseria gonorrhoeae, KATHE NEGATI VE negati ve Not Available [facility] ([facility]) [address] [place], [address], 05/11/2019 07:09:39 05/07/19 20 05/11/2019 bacte rial vagin osis panel , vagin al atopobium vaginae LOW - 0 score Not Available [facility] ([facility]) [address] [place], [address], 05/11/2019 07:09:39 05/07/19 20 05/11/2019 bacte rial vagin osis panel , vagin al bvab 2 LOW - 0 score Not Available [facility] ([facility]) [address] [place], [address], 05/11/2019 07:09:39 05/07/1905/11/2019 bacte rial vagin osis panel , vagin al megasphaera 1 LOW - 0 score Calcu late total score by antonio g [...] is not neces daljit. Not Available [facility] ([facility]) [address] [facility], [place], [address], 05/11/2019 07:09:39 05/07/19 20 05/11/2019 bacte rial vagin osis panel , vagin al kelvin albicans, KATHE NEGATI VE negati ve Not Available [facility] ([facility]) [address] [facility], [place], [address], 05/11/2019 07:09:39 05/07/19 20 05/11/2019 bacte rial vagin osis panel , vagin al kelvin glabrata, KATHE NEGATI VE negati ve Not Available [facility] ([facility]) [address] [facility], [place], [address], 05/11/2019 07:09:39 05/07/19 20 05/09/2019 cultu re, [...] ut addit ional testi ng is kyle ntsilvino if resis tance to clind amyjoanie n is noted . Not Available [facility] ([facility]) [address] [facility], [place], [address], 05/11/2019 07:09:39 05/07/19 20 05/07/2019 urina lysis [...] 05/07/2019 urina lysis , dipst ick Specific Imler 1.030 Not Available In-Off ice Order Internal Use Only DO Not Attach Compendium DO Not Attach Compendium, Do Not Delete/merge, [id number] 05/07/2019 12:47:08 05/07/19 20 05/07/2019 urina lysis , dipst ick Ketone Negati ve Not Available In-Office Order Internal Use Only DO Not Attach Compendium DO Not Attach Compendium, Do Not Delete/merge, [id number] 05/07/2019 12:47:08 05/07/19 20 05/07/2019 urina lysis , dipst ick Bilirubin Negati ve Not Available In-Office Order Internal Use Only DO Not Attach Compendium DO Not Attach Compendium, Do Not Delete/merge, [id number] 05/07/2019 12:47:08 05/07/19 20 05/07/2019 urina lysis , dipst ick Glucose Negati ve Not Available In-Office Order Internal Use Only DO Not Attach Compendium DO Not Attach Compendium, Do Not Delete/merge, [id number] 05/07/2019 12:47:08 08/06/19 21 08/07/2020 bacte rial vagin osis panel , vagin al trich vag by KATHE NEGATI VE negati ve Not Available [facility] ([facility]) [address] [place], [address], 08/08/2020 14:11:23 08/06/19 21 08/07/2020 bacte rial vagin osis panel , vagin al chlamydia trachomatis, KATHE NEGATI VE negati ve Not Available [facility] ([facility]) [address] [place], [address], 08/08/2020 14:11:23 08/06/19 21 08/07/2020 bacte rial vagin osis panel , vagin al neisseria gonorrhoeae, KATHE NEGATI VE negati ve Not Available [facility] ([facility]) [address] [place], [address], 08/08/2020 14:11:23 08/06/19 21 08/08/2020 bacte rial vagin osis panel , vagin al atopobium vaginae MODERA TE - 1 score Not Available [facility] ([facility]) [address] [place], [address], 08/08/2020 14:11:23 08/06/19 21 08/08/2020 bacte rial vagin osis panel , vagin al bvab 2 LOW - 0 score Not Available [facility] ([facility]) [address] [place], [address], 08/08/2020 14:11:23 08/06/19 21 08/08/2020 bacte rial [...] Drug Admin istra tion. Not Available [facility] ([facility]) [address] [facility], [place], [address], 08/08/2020 14:11:23 08/06/19 21 08/08/2020 bacte rial vagin osis panel , vagin al kelvin albicans, KATHE NEGATI VE negati ve Not Available [facility] ([facility]) [address] [facility], [place], [address], 08/08/2020 14:11:23 08/06/19 21 08/08/2020 bacte rial vagin osis panel , vagin al kelvin glabrata, KATHE NEGATI VE negati ve Not Available [facility] ([facility]) [address] [place], [address], 08/08/2020 14:11:23 08/06/19 21 08/08/2020 bacte rial vagin osis panel , vagin al hsv 1 KATHE NEGATI VE negati ve Not Available [facility] ([facility]) [address] [place], [address], 08/08/2020 14:11:23 08/06/19 21 08/08/2020 bacte rial vagin osis panel , vagin al hsv 2 KATHE NEGATI VE negati ve Not Available [facility] ([facility]) [address] [place], [address], 08/08/2020 14:11:23 08/06/19 21 08/06/2020 cultu re, urine urine culture, routine FINAL REPORT Not Available [facility] ([facility]) [address] [place], [address], 08/08/2020 14:11:24 08/06/19 21 08/06/2020 cultu re, urine result 1 COMMEN T Mixed uroge nital heidy 50,00 0-100 ,000 colon y formi ng units per mL Not Available [facility] ([facility]) [address] [place], [address], 08/08/2020 14:11:24 08/21/19 21 08/23/2020 bacte rial vagin osis panel , vagin al trich vag by KATHE NEGATI VE negati ve Not Available [facility] ([facility]) [address] [place], [address], 08/28/2020 07:11:09 08/21/19 21 08/23/2020 bacte rial vagin osis panel , vagin al chlamydia trachomatis, KATHE NEGATI VE negati ve Not Available [facility] ([facility]) [address] [place], [address], 08/28/2020 07:11:09 08/21/19 21 08/23/2020 bacte rial vagin osis panel , vagin al neisseria gonorrhoeae, KATHE NEGATI VE negati ve Not Available [facility] ([facility]) [address] [facility], [place], [address], 08/28/2020 07:11:09 08/21/1908/25/2020 bacte rial vagin osis panel , vagin al atopobium vaginae HIGH - 2 score abnormal Not Available [facility] ([facility]) [address] [facility], [place], [address], 08/28/2020 07:11:09 08/21/1908/25/2020 bacte rial vagin osis panel , vagin al bvab 2 LOW - 0 score Not Available [facility] ([facility]) [address] [facility], [place], [address], 08/28/2020 07:11:09 08/21/1908/25/2020 bacte rial vagin osis panel , vagin [...] Drug Admin istra tion. Not Available [facility] ([facility]) [address] [facility], [place], [address], 08/28/2020 07:11:09 08/21/19 21 08/25/2020 bacte rial vagin osis panel , vagin al kelvin albicans, KATHE NEGATI VE negati ve Not Available [facility] ([facility]) [address] [place], [address], 08/28/2020 07:11:09 08/21/19 21 08/25/2020 bacte rial vagin osis panel , vagin al kelvin glabrata, KATHE NEGATI VE negati ve Not Available [facility] ([facility]) [address] [place], [address], 08/28/2020 07:11:09 08/21/19 21 08/28/2020 bacte rial vagin osis panel , vagin al hsv 1 KATHE NEGATI VE negati ve Not Available [facility] ([facility]) [address] [place], [address], 08/28/2020 07:11:09 08/21/19 21 08/28/2020 bacte rial vagin osis panel , vagin al hsv 2 KATHE NEGATI VE negati ve Not Available [facility] ([facility]) [address] [place], [address], 08/28/2020 07:11:09 08/21/19 21 08/22/2020 cultu re, [...] n is noted . Not Available [facility] ([facility]) [address] [facility], [place], [address], 08/28/2020 07:11:10 02/14/20 21 02/14/2021 URINE CULTU RE, CARMENI NE urine culture, routine FINAL REPORT Not Available [facility] ([facility]) [address] [facility], [place], [address], 02/15/2021 03:06:09 02/14/20 21 02/14/2021 URINE CULTU RECARMENI NE result 1 COMMEN T Mixed uroge nital heidy Less than 10,00 0 colon ies/m L Not Available [facility] ([facility]) [address] [facility], [place], [address], 02/15/2021 03:06:09 02/14/20 21 02/13/2021 urina lysis , dipst ick Leukocytes Trace Not Available In-Offi ce Order Internal Use Only DO Not Attach Compendium DO Not Attach Compendium, Do Not Delete/merge, [id number] 02/13/2021 11:06:21 02/14/20 21 02/13/2021 urina lysis , dipst ick Nitrite negati ve Not Available In-Office Order Internal Use Only DO Not Attach Compendium DO Not Attach Compendium, Do Not Delete/merge, [id number] 02/13/2021 11:06:21 02/14/20 21 02/13/2021 urina lysis , dipst ick Urobilinogen .2 Not Available In-Of fice Order Internal Use Only DO Not Attach Compendium DO Not Attach Compendium, Do Not Delete/merge, [id number] 02/13/2021 11:06:21 02/14/20 21 02/13/2021 urina lysis , dipst ick Protein Negati ve Not Available In-Office Order Internal Use Only DO Not Attach Compendium DO Not Attach Compendium, Do Not Delete/merge, [facility] 02/13/2021 11:06:21 02/14/20 21 02/13/2021 urina lysis , dipst ick pH 5.5 Not Available In-Office Order Internal Use Only DO Not Attach Compendium DO Not Attach Compendium, Do Not Delete/merge, [facility] 02/13/2021 11:06:21 02/14/20 21 02/13/2021 urina lysis , dipst ick Blood Non-He molyze d: Trace Not Available In-Office Order Internal Use Only DO Not Attach Compendium DO Not Attach Compendium, Do Not Delete/merge, [facility] 02/13/2021 11:06:21 02/14/20 21 02/13/2021 urina lysis , dipst ick Specific Imler 1.030 Not Available In-Off ice Order Internal Use Only DO Not Attach Compendium DO Not Attach Compendium, Do Not Delete/merge, [facility] 02/13/2021 11:06:21 02/14/20 21 02/13/2021 urina lysis , dipst ick Ketone Negati ve Not Available In-Office Order Internal Use Only DO Not Attach Compendium DO Not Attach Compendium, Do Not Delete/merge, [facility] 02/13/2021 11:06:21 02/14/20 21 02/13/2021 urina lysis , dipst ick Bilirubin Small Not Available In-Offic e Order Internal Use Only DO Not Attach Compendium DO Not Attach Compendium, Do Not Delete/merge, [id number] 02/13/2021 11:06:21 02/14/20 21 02/13/2021 urina lysis , dipst ick Glucose Negati ve Not Available In-Office Order Internal Use Only DO Not Attach Compendium DO Not Attach Compendium, Do Not Delete/merge, [id number] 02/13/2021 11:06:21 02/14/20 21 02/13/2021 urina lysis , dipst ick Appearance Cloudy Not Available In-Offi ce Order Internal Use Only DO Not Attach Compendium DO Not Attach Compendium, Do Not Delete/merge, [id number] 02/13/2021 11:06:21 02/14/20 21 02/13/2021 urina lysis , dipst ick Color [place] Not Available In-Office Order Internal Use Only DO Not Attach Compendium DO Not Attach Compendium, Do Not Delete/merge, [id number] 02/13/2021 11:06:21 04/07/19 22 04/08/2021 URINE CULTU RE, ROUTI NE urine culture, routine Final report Not Available [facility] ([facility]) [address] [facility], [place], [address], 04/09/2021 03:07:47 04/07/19 22 04/08/2021 URINE CULTU RE, ROUTI NE result 1 Commen t Mixed uroge nital heidy 25,00 0-50, 000 colon y formi ng units per mL Not Available [facility] ([facility]) [address] [facility], [place], [address], 04/09/2021 03:07:47 04/07/19 22 04/07/2021 urina lysis , dipst ick Leukocytes Small Not Available In-Offi ce Order Internal Use Only DO Not Attach Compendium DO Not Attach Compendium, Do Not Delete/merge, [id number] 04/07/2021 09:32:49 04/07/19 22 04/07/2021 urina lysis , dipst ick Nitrite negati ve Not Available In-Office Order Internal Use Only DO Not Attach Compendium DO Not Attach Compendium, Do Not Delete/merge, [id number] 04/07/2021 09:32:49 04/07/19 22 04/07/2021 urina lysis [...] 04/07/2021 urina lysis , dipst ick Specific Imler 1.025 Not Available In-Off ice Order Internal Use Only DO Not Attach Compendium DO Not Attach Compendium, Do Not Delete/merge, [id number] 04/07/2021 09:32:49 04/07/19 22 04/07/2021 urina lysis , dipst ick Ketone Negati ve Not Available In-Office Order Internal Use Only DO Not Attach Compendium DO Not Attach Compendium, Do Not Delete/merge, [id number] 04/07/2021 09:32:49 04/07/19 22 04/07/2021 urina lysis , dipst ick Bilirubin Negati ve Not Available In-Office Order Internal Use Only DO Not Attach Compendium DO Not Attach Compendium, Do Not Delete/merge, 04/07/2021 09:32:49 04/07/19 22 04/07/2021 urina lysis , dipst ick Glucose Negati ve Not Available In-Office Order Internal Use Only DO Not Attach Compendium DO Not Attach Compendium, Do Not Delete/merge, [id number] 04/07/2021 09:32:49 10/16/19 10/16/2019 CT, abdom en + pelvi s, w/o contr ast No observ ation record ed. [facility] ([facility] [address] [place], [address], 10/23/2019 13:27:35 06/07/19 21 06/05/2020 CT, abdom en + pelvi s, w/o contr ast No observ ation record ed. [facility] [address] [place], [address], 08/20/2020 09:58:51 10/29/19 21 10/27/2020 XR, foot, 2 view No observ ation record ed. [address] ([employer]) [address] [place], [address], 04/07/2021 09:40:41 04/07/19 22 03/02/2021 CT, abdom en + pelvi s, w/o contr ast No observ ation [facility] ed[facility] [address] [place], [address], 04/07/2021 10:15:29 Result Notes None recorded. Problems Name Problem SNOMED Code Status Onset Date Resolution Date Notes Provider Name and Address Organization Details Recorded Time Female sterilization Active 2019 Not Available [facility] 02:[facility]:41 Smoker 96838480 Active 2019 Not Available [facility] 2 02:49:41 Deliveries by [id number] Active 2019 Not Available [facility] 2 02:49:41 Bacterial vaginosis [id number] Active 2020 [facility] 02[facility] Problem Notes None recorded. Procedures Surgical History Date Name Laterality Status Provider Name and Address Organization Details Recorded Time 03/25/19 22 procedure on umbilicus completed Anushka Claire MA [place] - [facility] 04/07/2021 09:18:08 05/09/19 18 Date of Last Pap Smear completed Cheikh Banuelos MA [place] - [facility] 07/18/2018 14:40:29 03/14/18 86 Tonsillectomy completed Aundrea Leonard MA [place] - [facility] 05/09/2017 15:27:18 03/24/18 80 Caesarean Section completed Aundrea Leonard [place] 05/09/2017 15:27:34 ligation of bilateral fallopian tubes completed Farshad Samayoa [place] 05/29/2018 11:34:42 Appendectomy completed Anushka Claire MA [place] 08/05/2020 16:45:52 Imaging Results None recorded. Procedure Notes None recorded. Medical Equipment None Reported. Allergies Allergen ID Allergen Name Allergen Category Reaction Reaction Severity Criticality Documentation Date Start Date Code Code System Note Provider Name and Address Organization Details Recorded Time 60266 codeine medicatio n Not available Not available Not available 09/26/2014 2670 RxNorm Farshad Samayoa [place] null, [place] 5 14:25:03 Medications Name Sig [...] Not Available Vitals Date Recorded Body height Body mass index (BMI) Body weight Systolic And Diastolic Provider Name and Address Organization Details Last Updated DateTime 04/07/2021 161.29 cm 56.1 kg/m2 626844.74 g 128/76 mm[Hg] Anushka Claire MA [facility] 04/07/2021 09:20:13 Date Recorded Body mass index (BMI) Body weight Provider Name and Address Organization Details Last Updated DateTime 05/07/2019 56 kg/m2 254575.15 g Rose Hernanedz MA [facility] 05/07/2019 12:45:22 Date Recorded Body height Systolic And Diastolic Provider Name and Address Organization Details Last Updated DateTime 05/07/2019 161.29 cm 102/76 mm[Hg] Yodit JULIANNE Mauricio [facility] 05/07/2019 12:52:47 Date Recorded Body height Body mass index (BMI) Body weight Systolic And Diastolic Provider Name and Address Organization Details Last Updated DateTime 08/05/2020 161.29 cm 55.8 kg/m2 650081.56 g 120/80 mm[Hg] Anushka Claire MA [facility] 08/05/2020 16:48:59 Date Recorded Body height Body mass index (BMI) Body weight Systolic And Diastolic Provider Name and Address Organization Details Last Updated DateTime 08/20/2020 161.29 cm 55.6 kg/m2 452361.97 g 118/74 mm[Hg] Margareth Posada MA [facility] 08/20/2020 10:01:54 Date Recorded Body height Body mass index (BMI) Body weight Provider Name and Address Organization Details Last Updated DateTime 10/23/2019 161.29 cm 56.3 kg/m2 878638.34 g Rose Hernandez MA [facility] 10/23/2019 12:37:15 Social History Question Answer Notes LastModified by Organizat ion Details LastModified Time Tobacco Smoking Status Current Every Day Smoker cigarettes Farshad Samayoa MA null, [facility] 09/26/2014 14:25:03 Do You Have An Advance Directive? No Information not available 05/09/2017 What Is Your Level Of Caffeine Consumption? Occasional Information not available 05/09/2017 How Much Tobacco Do You Chew? None Information not available 05/07/2019 Have You Been To An Area Known To Be High Risk For COVID-19? No Information not available 05/07/2019 What Type Of Diet Are You Following? REGULAR Information not available 05/09/2017 Which Illicit Or Recreational Drugs Have You Used? [place] Information not available 05/09/2017 Education 12 Information no t available 05/09/2017 Hard Of Hearing Or Deaf [...] To Smoke? Yes Information not available 08/05/2020 How Much Tobacco Do You Smoke? 1 PPD 1 1/2 Pcks A Day Information not available 04/07/2021 Do You Use Sunscreen Routinely? Yes Information not available 05/09/2017 Has Tobacco Cessation Counseling Been Provided? Yes Information not available 08/05/2020 On What Date Was Tobacco Cessation Counseling Provided? 04/07/2021 Information not available 04/07/2021 How Many Years Have You Smoked Tobacco? 20 [email or web address] Information not available 09/26/2014 Sex: Unknown Functional Status Question Answer Note LastModified by Organizat ion Details LastModified Time Do you use any illicit or recreational drugs? Yes marijuana Information not available 08/05/2020 Do you or have you ever used any other forms of tobacco or nicotine? No Information not available 08/05/2020 What is your level of alcohol consumption? None Information not available 08/05/2020 Do you or have you ever used smokeless tobacco? Never used smokeless tobacco Information not available 05/07/2019 Are you currently employed? 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 Never used electronic cigarettes Information not available 05/07/2019 What is your exercise level? None Information not available 05/09/2017 Mental Status None recorded. Family History Relationship Description Onset Age of this Age Resolved Age Notes LastModified by Organization Details LastModified Time Maternal Grandmother Hypertensive disorder Not available 2017 15:23:45 Maternal Grandmother Hypercholest erolemia Not available 2017 15:23:55 Medical History Condition Response Other N High Blood Pressure N Breast Cancer N Depression N Blood Clots N Lung Disease N Breast Problem N Anesthesia Complications N Headaches/Migraines N Anxiety Disorder N Muscle, Joint, or Bone Problems N Polyps N Infertility N Acid Reflux (GERD) Y Cancer N Endometriosis N High Cholesterol N Liver Disease N Thyroid Problems N Kidney or Bladder Problems N GI Problems N Acne N Eating Disorder N Anemia N Diabetes N Ovarian Cancer N Blood Transfusions N Seizures/Epilepsy N Abuse/Domestic Violence N Asthma N Hepatitis N Heart Disease N Pre-Eclampsia N Osteoporosis [...] Diagnosis SNOMED-CT Code Diagnosis ICD10 Code Diagnosis IMO Codes Diagnosis Note [id number] MD Amna Purdy (Adult Med) [address] [place] [address] [phone] 09/26/2014 13:59:45 09/26/2014 14:55:25 Adult health examination [id number] [facility] [address] [place] [address] [phone] 09/27/2014 12:20:47 09/27/2014 14:38:07 Tuberculosis screening 813649835 [id number] MD Amna Otoole (WAREHOUSE ENGINEER) [address] [place] [address] [phone] 05/09/2017 14:39:29 05/09/2017 16:48:53 Gynecologic examination 87289388 Z01.419 Obesity 990921917 E66.9 Female sterilization 608 63171 Z30.2 Deliveries by 790068805 O82 Abnormal u terine bleeding 8521609138 9100 N93.9 Candidiasis of skin 4988 3006 B37.2 Family bridget nning surveillance 054188266 Z30.09 Exposure t o sexually transmissible disorder 973298928 Z20.2 [id number] Roseanna Peña MD [facility] (Adult Med) [address] [place] [address] [phone] 05/29/2018 10:38:39 06/09/2018 15:59:43 [id number] MD Amna Otoole (WAREHOUSE ENGINEER) [address] [place] [address] [phone] 07/19/2018 14:16:20 07/19/2018 17:13:15 Candidiasis of vagina 86683774 B37.3 Folliculitis 06833435 L7 3.9 Family bridget nning surveillance 093015163 Z30.09 sterilizat ion Exposure t o sexually transmissible disorder 624872138 Z20.2 [id number] MD Amna Otoole (WAREHOUSE ENGINEER) [address] [place] [address] [phone] 05/07/2019 12:10:51 05/08/2019 11:20:53 Exposure to sexually transmissible disorder 198841441 Z20.2 Female sterilization 608 01675 Z30.2 Morbid obesity 807511439 Z68.43 Smoker 00353314 F17.200 Deliveries by [id number] O82 Family bridget ing surveillance 586981339 Z30.09 sterilizat ion Bacterial vaginosis 4197 59030 N76.0 Candidiasis 92217563 B37 .9 [id number] MD Amna Otoole (WAREHOUSE ENGINEER) [address] [place] [address] [phone] 10/23/2019 12:35:13 10/24/2019 07:32:41 Candidiasis 39971530 B37.9 Acute urin omari tract infection 191925156 N39.0 Menorrhagia 218281391 N9 2.0 [id number] SAUMYA PEREZ (WAREHOUSE ENGINEER) [address] [place] [address] [phone] 08/05/2020 16:17:28 08/09/2020 18:48:12 Dysuria 93352840 R30.9 UA unremarkab le, will send for culture given patients symptoms. Advised increased water intake (pt states she never drinks water). Acute vaginitis 81872414 N76.0 PE unremarkab le. Sample collected. Will treat pending results. Use mild, unscented soaps or plain water when washing, avoid any products with fragrance. Wear cotton underwear and loose fitting clothing. Wash only once per day, do not overscrub or douche. [id number] MD Amna Otoole (WAREHOUSE ENGINEER) [address] [place] [address] [phone] 0 08/20/2020 09:40:23 08/25/2020 06:49:15 Smoker 83390963 F17.200 Female sterilization 608 93593 Z30.2 Vulvitis 59762664 N76.2 Atrophic vaginitis 53533 000 N95.2 Exposure t o sexually transmissible disorder 398383738 Z20.2 [id number] SAUMYA PEREZ (WAREHOUSE ENGINEER) [address] [place] [address] [phone] 04/07/2021 08:46:46 04/09/2021 07:41:37 Cystocele 092990280 N81.10 Possible Grade 1 cystocele, no increased bulging with bearing down. Discussed kegel/pelv ic floor exercises to help with symptoms and to avoid any heavy lifting/sq uatting. Talked with pt and she is aware weight loss could be beneficial . Referral to urogyn for further eval and management . Recurrent urinary tract infection 585023369 N39.0 Pt treated for recurrent UTIs and has chronic irritative voiding symptoms. UA unremarkab le today but will send for culture. Referred to urologist. Menorrhagia 247453984 N9 2.0 Pt says post tubal ligation she got very painful cramping and HMB so norethindr one was started which has alleviated her symptoms. Renewed today. Morbid obesity 575313208 E66.01 BMI 56.1. Discussed healthy diet (including [...] None Recorded Advance Directives Directive N: Payers Insurance Date Sequence Insurance Name Policy Number Policy Crook Covered Member ID Crook Member ID Guarantor Name 04/02/2021 1 [facility] [employer] - OPEN ACCESS III (PPO) [id number] Mandi Hamilton [id number] Mandi Hamilton 05/09/2017 1 [facility] (MEDICAID HMO) Mandi Hamilton [id number] Mandi Hamilton 04/09/2015 2 [place] [employer] Mandi Hamilton [id number] Mandi Hamilton 03/10/2018 1 [place] [facility] Mandi Hamilton [id number] Mandi Hamilton Notes Date Note Type Note Provider Name and Address Organization Details Recorded Time 0 text/html Annual GYNReported by PatientHistoryFor history, patient reportsno gynecologic complaints.Genitourinary symptomsFor vagina, patient reportswhite. For menstrual cycle, patient reportsnormal menses. For urinary symptoms, patient reportsno hematuriaandno incontinence. For vulva, patient reportsno genital lesion.Breast symptomsFor breast, patient reportsno breast pain,no breast lump, andno nipple discharge.Endocrine symptomsFor sexual complaints, patient reportsno sexual complaints,no pain during intercourse, andnormal libido. For menopausal symptoms, patient reportsno menopausal symptomsandnormal vaginal lubrication.Psychological symptomsFor psychological symptoms, patient reportsno depression,no anxiety, andno pmdd.Preventative measuresFor preventive measures, patient reportsencourage self breast examination,encourage regular exercise,encourage no tobacco use,encourage regular mammograms starting age 40, andfollowed with q3 year pap smear and high risk hpv typing. 39 yo F, , presents for WWE Aureliano Lolis garcia [facility] 05/07/2019 18:24:56 0 text/html Recurrent UTIReported by PatientHPIFor associated symptoms, patient reportsfrequency,urgency, anddysuriabut reportsno incontinence,no nocturia,no hematuria,no incomplete emptying,no flank pain,no back pain, andno kidney stones. 39 yo F, , presents for dysuria frequency, seen in the ER given macrobid side effect nausea, patient stopped med Aureliano Lolis garcia [facility] 10/23/2019 13:29:49 1 text/html 40 yo who presents with clear, [...] topical preparations. SAUMYA PEREZ Attn: Accounting,[address] [place], [address], [facility] 08/13/2020 17:32:43 1 text/html Recurrent UTIReported by PatientHPIFor associated symptoms, patient reportsno frequency,no urgency,no incontinence,no nocturia,no dysuria,no hematuria,no incomplete emptying,no flank pain,no back pain, andno kidney stones. 40 yo who presents with clear, malodorous vaginal discharge and itching x2 weeks. She notes her skin around her vagina is sensitive and erythematous due to scratching and wiping. She denies recent changes in hygiene products. She reports frequent vaginal infections and taking bleach baths prophylactically every month. She reports difficulty using topical preparations. Aureliano PearceLolis [facility] [place] [facility] 08/20/2020 16:17:56 2 text/html Annual GYNReported by PatientGenitourinary symptomsFor urinary symptoms, patient reportsurge incontinence,burning sensation during urination (intermittent), andnocturiabut reportsno hematuria(mixed incontinence). For vulva, patient reportsno genital lesion. For vagina, patient reportsnormal vaginal discharge.Breast symptomsFor breast, patient reportsno breast pain,no breast lump, andno nipple discharge.ContraceptionFo r current contraception, patient reportstubal ligation.Endocrine symptomsFor sexual complaints, patient reportsno sexual complaints,no pain during intercourse, andnormal libido. For menopausal symptoms, patient reportsno menopausal symptomsandnormal vaginal lubrication.ROS as noted in the HPI Mandi is a 41y/o female with a [...] vaginal irritation/pruritis. SAUMYA PEREZ Attn: Accounting[address] [facility], [place], [address], [place] [facility] 04/08/2021 10:19:39 OBGyn Episode Ob Episode Information Episode Created Date Number of Fetuses Patient Bloodtype Patient rh Status Prepregnancy Weight lbs Domestic Partner Domestic Partner Phone Father Name Plant And Maintenance Technician Status 05/09/19 18 1 CLOSED Fetus Data First Name Last Name Admitted to NICU Weight (g) Sex Living Outcome Pediatric Complications Fetus ID Race Codes Race Delivery Type 3175.14 4 Full Term [id number] Gera Calculation Initial Gera Date Initial Exam [...]
[2025-02-11] MEDS: LACTATED RINGERS 1,000 ML 30 ML IV CONT (13:30)
[2025-02-11] MEDS: ceFAZolin 2 GM in SODIUM CHLORIDE 0.9% IV 50 ML 100 ML IVPB (13:40)
[2025-02-11] MEDS: SCOPOLAMINE 1 MG PATCH 1 PATCH TRANSDERM (13:45)
--- NOTE | 2025-02-11 14:24 | W.PM.PROC2 ---
Procedure Note - Detailed Date of Procedure 02/11/25 Pre-op Diagnosis Recurrent left breast abscess Post-op Diagnosis Same Procedure Performed Incision and drainage of left breast abscess Surgeon Candace Bee MD Anesthesia MAC Description of Procedure Patient was identified in the preoperative holding area brought to the operating room suite. She was laid supine in the OR table sequential compression devices were applied. Anesthesia was induced without difficulty. The left chest area was prepped and draped in a sterile fashion. A small incision was made at the edge of the fluctuance which was centrally around the nipple areola complex with a 15 blade. There is immediate evacuation of a moderate amount of purulent fluid approximately 20-30 cc. Cultures were sent. A hemostat was used to explore the subareolar plane and break up all the loculations. This was found to be approximately 4-5 cm in length and across. A counter incision was then made on the underside of the nipple areola complex around the periareolar area. The cavity was copiously irrigated with saline until the effluent was clear. A quarter-inch [place] drain was passed through both incisions and secured to the skin with a silk suture. The abscess cavity was then packed with a quarter-inch iodoform packing tape for hemostasis. A pressure dressing was applied followed by a surgical bra. Patient was awoken from anesthesia and taken to the recovery area in stable condition. All needles, instruments, sponge counts were correct as reported by the operating room staff. Patient tolerated the procedure well with no immediate complications. Estimated Blood Loss 10 Drains Yes (jevon) Packing Yes Complications No immediate complications Condition Stable Disposition PACU [facility] Billing Surgery - Charge Forward: Surgery Billing (CPT 65908)
[2025-02-11] MEDS: fentaNYL CITRATE INJ (*CRX) 100 MCG/2 ML VIAL 25 MCG IV PUSH ×4 (14:50→15:01)
[2025-02-11] MEDS: oxyCODONE HCL (*CRX) 5 MG TAB IR PO (15:33)
--- NOTE | 2025-02-11 16:06 | SUR.PHASEII ---
PATIENT REQUESTED SURGICAL BRA. GIULIANA RIVERO IN THE OR BROUGHT ONE FOR HER TO WEAR.
== END 2025-02-11 16:07 | disposition home or self-care (01) ==
LOC: ANHED 12:13 → ANHSURGERY 12:14
PROVIDERS: Emergency Provider Student in an Organized Health Care Education/Training Program; PCP Internal Medicine; Visit Provider Surgery
PROC: (CPT 19020; principal; 2025-02-11 13:30)
DX: N61.1 Abscess of the breast and nipple (principal); F17.210 Nicotine dependence, cigarettes, uncomplicated; F12.90 Cannabis use, unspecified, uncomplicated; E66.01 Morbid (severe) obesity due to excess calories; Z68.41 Body mass index [BMI] 40.0-44.9, adult
CPT/HCPCS: 19020; 99285; J0690; A9270; J1100; J2250; J2270; J2405; J2704; J3010; J7120; L8000